=== PATIENT | male | born 1935 | race Caucasian/White ===

== ENCOUNTER → 2016-12-13 | Outpatient (CLI) | payer MEDICARE ==
[~2016-12-13] VITALS: Ht 174 cm; Wt 93.0 kg
[~2016-12-13] MED LIST: /ADVA50050 IN; /WARF5TA OR; ADV500INH INH; ALBU17IN2 INH; ALLO100T PO; CARDIZEM PO; DILT300C46 PO; FISH1000 PO; FISHCAP PO; FLOM5CAP PO; FLON1SPR; FLONASE; INDO50CA PO; LASI40TA PO; LASIX PO; LOVA10TA PO; LOVASTATIN PO; MOVE1TAB PO; MULT1TAB10 PO; MULTIVIT OR; NS 1,000 ML IV ONE; PERC5TAB8 OR; POTA10TA16 PO; PROPOFOL 200 MG/20 ML VIAL As Ordered ONE; SPIRIVA PO; TIOT18INH INH; TORS20TA2 PO; TYLENOL OR; UNIPHYL PO; UROXATRAL PO; VIT D 2000 OR; VITA-112 PO; VITA-130 PO; VITA50TA43 PO; ZANTAC PO; ZANTTAB PO
--- NOTE | 2016-12-13 10:54 | ROOR ---
Patient Name: Tahir Brandon Procedure Date: 12/13/2016 10:29 AM Date of : 1935 Age: 81 Room: [facility] Gender: Male Note Status: Finalized Procedure: Colonoscopy Indications: High risk colon cancer surveillance: Personal history of colonic polyps Providers: Frederick Campos Jr, MD Referring MD: SAMI Mullen PA-C Requesting Provider: Medicines: Propofol per Anesthesia Complications: No immediate complications. Procedure: Pre-Anesthesia Assessment: - Prior to the procedure, a History and Physical was performed, and patient medications and allergies were reviewed. The patient is competent. The risks and benefits of the procedure and the sedation options and risks were discussed with the patient. All questions were answered and informed consent was obtained. Patient identification and proposed procedure were verified by the physician and the nurse in the pre-procedure area and in the procedure room. Mental Status Examination: alert and oriented. Airway Examination: normal oropharyngeal airway and neck mobility. Respiratory Examination: clear to auscultation. CV Examination: normal. ASA Grade Assessment: II - A patient with mild systemic disease. After reviewing the risks and benefits, the patient was deemed in satisfactory condition to undergo the procedure. The anesthesia plan was to use moderate sedation / analgesia (conscious sedation). Immediately prior to administration of medications, the patient was re-assessed for adequacy to receive sedatives. The heart rate, respiratory rate, oxygen saturations, blood pressure, adequacy of pulmonary ventilation, and response to care were monitored throughout the procedure. The physical status of the patient was re-assessed after the procedure. The Colonoscope was introduced through the anus and advanced to the cecum, identified by appendiceal orifice and ileocecal valve. The colonoscopy was performed without difficulty. The patient tolerated the procedure well. The quality of the bowel preparation was adequate and good. Findings: The perianal exam findings include non-thrombosed internal hemorrhoids, internal hemorrhoids that prolapse with straining, but spontaneously regress to the resting position (Grade II) and internal hemorrhoids that prolapse with straining, but require manual replacement into the anal canal (Grade III). A medium polyp was found in the ileocecal valve. The polyp was sessile. The polyp was removed with a jumbo cold forceps. Polyp resection was incomplete. The resected tissue was retrieved. Multiple small and large-mouthed diverticula were found in the sigmoid colon and descending colon. The rectum, recto-sigmoid colon, transverse colon, ascending colon, cecum and appendiceal orifice appeared normal. Impression: - Non-thrombosed internal hemorrhoids, internal hemorrhoids that prolapse with straining, but spontaneously regress to the resting position (Grade II) and internal hemorrhoids that prolapse with straining, but require manual replacement into the anal canal (Grade III) found on perianal exam. - One medium polyp at the ileocecal valve, removed with a jumbo cold forceps. Incomplete resection. Resected tissue retrieved. - Diverticulosis in the sigmoid colon and in the descending colon. - The rectum, recto-sigmoid colon, transverse colon, ascending colon, cecum and appendiceal orifice are normal. Recommendation: - Discharge patient to home (ambulatory). - Repeat colonoscopy in 3 - 5 years for surveillance based on pathology results. Frederick Campos MD Frederick Campos Jr, MD 12/13/2016 10:54:41 AM This report has been signed electronically. Number of Addenda: 0 Note Initiated On: 12/13/2016 10:29 AM Estimated Blood Loss: Estimated blood loss: none.
[2016-12-13 11:15] VITALS: BP 169/78
== END | disposition home or self-care (01) ==
LOC: M OPP 09:13
PROVIDERS: ATTEND Surgery
DX: Z12.11 Encounter for screening for malignant neoplasm of colon (principal); D12.0 Benign neoplasm of cecum; K64.1 Second degree hemorrhoids; K64.2 Third degree hemorrhoids; K57.30 Diverticulosis of large intestine without perforation or abscess without bleeding; Z86.010 Personal history of colon polyps; I12.9 Hypertensive chronic kidney disease with stage 1 through stage 4 chronic kidney disease, or unspecified chronic kidney disease; E78.5 Hyperlipidemia, unspecified; K57.92 Diverticulitis of intestine, part unspecified, without perforation or abscess without bleeding; R12 Heartburn; K21.9 Gastro-esophageal reflux disease without esophagitis; E66.9 Obesity, unspecified; R23.3 Spontaneous ecchymoses; M19.90 Unspecified osteoarthritis, unspecified site; M10.9 Gout, unspecified; N18.9 Chronic kidney disease, unspecified; M54.5 Low back pain; J44.9 Chronic obstructive pulmonary disease, unspecified; G47.30 Sleep apnea, unspecified; R06.83 Snoring; N40.1 Benign prostatic hyperplasia with lower urinary tract symptoms; Z87.891 Personal history of nicotine dependence; Z79.899 Other long term (current) drug therapy

== ENCOUNTER → 2016-12-18 | Outpatient (REF) | payer MEDICARE ==
[~2016-12-18] MED LIST changes: -NS 1,000 ML IV ONE; -PROPOFOL 200 MG/20 ML VIAL As Ordered ONE
[2016-12-18 15:08] LABS: MEAN CORPUSCULAR HEMOGLOBIN 33.8 pg (27.0-33.0); MEAN CORPUSCULAR HGB CONC 34.3 g/dl (32.0-36.5); MEAN CORPUSCULAR VOLUME 98.6 fl (80.0-96.0); RED CELL DISTRIBUTION WIDTH 13.5 % (11.5-14.5); WHITE BLOOD COUNT 5.8 K/mm3 (4.0-10.0)
[2016-12-18 15:45] LABS: ALBUMIN 3.8 GM/DL (3.2-5.2); ALBUMIN/GLOBULIN RATIO 1.46 (1.00-1.93); ALKALINE PHOSPHATASE 81 U/L (45-117); ALT/SGPT 27 U/L (12-78); ANION GAP 8 MEQ/L (8-16); AST/SGOT 25 U/L (15-37); BILIRUBIN,TOTAL 0.7 MG/DL (0.2-1.0); BLOOD UREA NITROGEN 16 MG/DL (7-18); CARBON DIOXIDE LEVEL 29 MEQ/L (21-32); CHLORIDE LEVEL 105 MEQ/L (98-107); CHOLESTEROL LEVEL 146 MG/DL (<200); CREATININE FOR GFR 1.21 MG/DL (0.70-1.30); GLOMERULAR FILTRATION RATE > 60.0 (>35); GLUCOSE, FASTING 91 MG/DL (83-110); POTASSIUM SERUM 3.6 MEQ/L (3.5-5.1); SODIUM LEVEL 142 MEQ/L (136-145); THEOPHYLLINE LEVEL 15.9 UG/ML (10.0-20.0); TOTAL PROTEIN 6.4 GM/DL (6.4-8.2); TRIGLYCERIDES LEVEL 115 MG/DL (<150); URIC ACID 6.7 MG/DL (3.5-7.2)
== END ==
LOC: M SFHCLACO 08:22
PROVIDERS: ATTEND Physician Assistant
DX: J44.9 Chronic obstructive pulmonary disease, unspecified (principal); I10 Essential (primary) hypertension; E78.2 Mixed hyperlipidemia; M10.9 Gout, unspecified; Z51.81 Encounter for therapeutic drug level monitoring; Z79.899 Other long term (current) drug therapy

== ENCOUNTER → 2017-06-18 | Outpatient (REF) | payer MEDICARE ==
[~2017-06-18] MED LIST changes: -VITA-130 PO; +VITA500T PO
[2017-06-18 15:34] LABS: MEAN CORPUSCULAR HEMOGLOBIN 32.7 pg (27.0-33.0); MEAN CORPUSCULAR HGB CONC 33.1 g/dl (32.0-36.5); MEAN CORPUSCULAR VOLUME 98.6 fl (80.0-96.0); PLATELET COUNT, AUTOMATED 199 10^3/uL (150-450); RED CELL DISTRIBUTION WIDTH 13.8 % (11.5-14.5); WHITE BLOOD COUNT 6.2 10^3/uL (4.0-10.0)
[2017-06-18 16:05] LABS: ALBUMIN 3.8 GM/DL (3.2-5.2); ALBUMIN/GLOBULIN RATIO 1.31 (1.00-1.93); BILIRUBIN,TOTAL 0.9 MG/DL (0.2-1.0); CALCIUM LEVEL 9.2 MG/DL (8.8-10.2); CREATININE FOR GFR 1.25 MG/DL (0.70-1.30); GLOMERULAR FILTRATION RATE 58.9 (>35); POTASSIUM SERUM 3.7 MEQ/L (3.5-5.1); THEOPHYLLINE LEVEL 18.7 UG/ML (10.0-20.0); TOTAL PROTEIN 6.7 GM/DL (6.4-8.2)
== END ==
LOC: M SFHCLACO 08:28
PROVIDERS: ATTEND Physician Assistant
DX: J44.9 Chronic obstructive pulmonary disease, unspecified (principal); I10 Essential (primary) hypertension; E78.2 Mixed hyperlipidemia; Z12.5 Encounter for screening for malignant neoplasm of prostate; M10.9 Gout, unspecified; Z51.81 Encounter for therapeutic drug level monitoring; Z79.899 Other long term (current) drug therapy
CPT/HCPCS: 80053; 80061; 80198; 84550; 85027; G0103

== ENCOUNTER → 2017-12-13 | Outpatient (CLI) | payer MEDICARE | LOC: M SMT 12:09 | DX: J44.9 Chronic obstructive pulmonary disease, unspecified (principal) | CPT/HCPCS: 71046 ==

== ENCOUNTER → 2017-12-17 | Outpatient (REF) | payer MEDICARE ==
[2017-12-17 14:52] LABS: HEMATOCRIT 43.4 % (42.0-52.0); HEMOGLOBIN 14.1 g/dl (13.5-17.5); MEAN CORPUSCULAR HEMOGLOBIN 32.5 pg (27.0-33.0); MEAN CORPUSCULAR HGB CONC 32.5 g/dl (32.0-36.5); PLATELET COUNT, AUTOMATED 195 10^3/uL (150-450); RED BLOOD COUNT 4.34 10^6/uL (4.30-6.10); RED CELL DISTRIBUTION WIDTH 14.1 % (11.5-14.5); WHITE BLOOD COUNT 6.7 10^3/uL (4.0-10.0)
[2017-12-17 15:33] LABS: ALBUMIN 3.8 GM/DL (3.2-5.2); ALBUMIN/GLOBULIN RATIO 1.27 (1.00-1.93); ALKALINE PHOSPHATASE 92 U/L (45-117); ALT/SGPT 21 U/L (12-78); ANION GAP 8 MEQ/L (8-16); AST/SGOT 19 U/L (7-37); BILIRUBIN,TOTAL 0.6 MG/DL (0.2-1.0); BLOOD UREA NITROGEN 24 MG/DL (7-18); CALCIUM LEVEL 9.1 MG/DL (8.8-10.2); CARBON DIOXIDE LEVEL 32 MEQ/L (21-32); CHLORIDE LEVEL 105 MEQ/L (98-107); CHOLESTEROL LEVEL 139 MG/DL (<200); CHOLESTEROL RISK RATIO 2.957 (<5); CREATININE FOR GFR 1.29 MG/DL (0.70-1.30); GLOMERULAR FILTRATION RATE 56.6 (>35); GLUCOSE, FASTING 81 MG/DL (70-100); HDL CHOLESTEROL 47 MG/DL (>40); NON-HDL-C 92 MG/DL; POTASSIUM SERUM 3.9 MEQ/L (3.5-5.1); PSA SCREENING 0.78 NG/ML (< 4.0); SODIUM LEVEL 145 MEQ/L (136-145); THEOPHYLLINE LEVEL < 2.0 UG/ML (10.0-20.0); TOTAL PROTEIN 6.8 GM/DL (6.4-8.2); TRIGLYCERIDES LEVEL 105 MG/DL (<150)
== END ==
LOC: M SFHCLACO 08:17
DX: J44.9 Chronic obstructive pulmonary disease, unspecified (principal); E78.2 Mixed hyperlipidemia; I10 Essential (primary) hypertension; Z12.5 Encounter for screening for malignant neoplasm of prostate
CPT/HCPCS: 80198

== ENCOUNTER → 2018-06-19 | Outpatient (REF) | payer MEDICARE ==
[2018-06-19 14:11] LABS: BASO % 0.3 % (0.0-1.0); EOS # 0.1 10^3/uL (0.0-0.50); EOS % 0.7 % (0.0-3.0); HEMATOCRIT 44.2 % (42.0-52.0); HEMOGLOBIN 14.6 g/dl (13.5-17.5); IMMATURE GRANULOCYTE % 0.4 % (0-3.0); LYMPH # 2.4 10^3/uL (1.5-4.5); LYMPH % 21.5 % (24.0-44.0); MEAN CORPUSCULAR HEMOGLOBIN 33.1 pg (27.0-33.0); MEAN CORPUSCULAR VOLUME 100.2 fl (80.0-96.0); MONO # 1.1 10^3/uL (0.0-0.8); MONO % 9.8 % (0.0-5.0); NEUTROPHILS # 7.4 10^3/uL (1.8-7.7); NEUTROPHILS % 67.3 % (36.0-66.0); PLATELET COUNT, AUTOMATED 211 10^3/uL (150-450); RED BLOOD COUNT 4.41 10^6/uL (4.30-6.10); RED CELL DISTRIBUTION WIDTH 13.4 % (11.5-14.5); WHITE BLOOD COUNT 10.9 10^3/uL (4.0-10.0)
[2018-06-19 14:39] LABS: ALBUMIN 4.1 GM/DL (3.2-5.2); ALBUMIN/GLOBULIN RATIO 1.37 (1.00-1.93); ALKALINE PHOSPHATASE 91 U/L (45-117); ALT/SGPT 22 U/L (12-78); ANION GAP 8 MEQ/L (8-16); AST/SGOT 27 U/L (7-37); BILIRUBIN,TOTAL 0.9 MG/DL (0.2-1.0); BLOOD UREA NITROGEN 20 MG/DL (7-18); CALCIUM LEVEL 9.3 MG/DL (8.8-10.2); CARBON DIOXIDE LEVEL 30 MEQ/L (21-32); CHLORIDE LEVEL 104 MEQ/L (98-107); CHOLESTEROL LEVEL 155 MG/DL (<200); CHOLESTEROL RISK RATIO 3.163 (<5); CREATININE FOR GFR 1.22 MG/DL (0.70-1.30); GLOMERULAR FILTRATION RATE > 60.0 (>35); GLUCOSE, FASTING 80 MG/DL (70-100); HDL CHOLESTEROL 49 MG/DL (>40); LDL CHOLESTEROL 81 MG/DL (<100); NON-HDL-C 106 MG/DL; POTASSIUM SERUM 4.3 MEQ/L (3.5-5.1); SODIUM LEVEL 142 MEQ/L (136-145); TOTAL PROTEIN 7.1 GM/DL (6.4-8.2); TRIGLYCERIDES LEVEL 126 MG/DL (<150)
== END ==
LOC: M SFHCADAM 12:15
DX: H65.23 Chronic serous otitis media, bilateral (principal); G47.33 Obstructive sleep apnea (adult) (pediatric); I12.9 Hypertensive chronic kidney disease with stage 1 through stage 4 chronic kidney disease, or unspecified chronic kidney disease; E78.2 Mixed hyperlipidemia; N18.3 Chronic kidney disease, stage 3 (moderate)
CPT/HCPCS: 84443

== ENCOUNTER → 2018-10-13 | Outpatient (REF) | payer MEDICARE ==
[~2018-10-13] MED LIST changes: +FLOM0.4C39 PO; -FLOM5CAP PO; -LASI40TA PO; +LASI40TA9 PO
== END ==
LOC: M SFHCPLAZ 15:46
PROVIDERS: ATTEND Dermatology
DX: C44.219 Basal cell carcinoma of skin of left ear and external auricular canal (principal); L82.1 Other seborrheic keratosis; L57.8 Other skin changes due to chronic exposure to nonionizing radiation

== ENCOUNTER → 2018-12-02 | Outpatient (REF) | payer MEDICARE ==
[~2018-12-02] MED LIST changes: -/ADVA50050 IN; -/WARF5TA OR; +ADVA1AER2 IN; +COUM1TAB17 OR; +DILT1CAP7 PO; -DILT300C46 PO; -INDO50CA PO; +INDO50CA11 PO
== END ==
LOC: M SFHCPLAZ 09:55
PROVIDERS: ATTEND Dermatology
DX: L57.0 Actinic keratosis (principal); L57.8 Other skin changes due to chronic exposure to nonionizing radiation

== ENCOUNTER → 2018-12-24 | Outpatient (REF) | payer MEDICARE ==
[2018-12-24 12:25] LABS: BASO % 0.3 % (0.0-1.0); EOS # 0.1 10^3/uL (0.0-0.50); EOS % 1.4 % (0.0-3.0); HEMATOCRIT 43.4 % (42.0-52.0); HEMOGLOBIN 14.1 g/dl (13.5-17.5); LYMPH # 2.1 10^3/uL (1.5-4.5); LYMPH % 33.1 % (24.0-44.0); MEAN CORPUSCULAR HEMOGLOBIN 33.5 pg (27.0-33.0); MEAN CORPUSCULAR HGB CONC 32.5 g/dl (32.0-36.5); MEAN CORPUSCULAR VOLUME 103.1 fl (80.0-96.0); MONO # 0.8 10^3/uL (0.0-0.8); MONO % 12.5 % (0.0-5.0); NEUTROPHILS # 3.3 10^3/uL (1.8-7.7); NEUTROPHILS % 52.5 % (36.0-66.0); PLATELET COUNT, AUTOMATED 173 10^3/uL (150-450); RED BLOOD COUNT 4.21 10^6/uL (4.30-6.10); WHITE BLOOD COUNT 6.2 10^3/uL (4.0-10.0)
[2018-12-24 12:32] LABS: ALBUMIN 3.8 GM/DL (3.2-5.2); BILIRUBIN,TOTAL 1.1 MG/DL (0.2-1.0); CALCIUM LEVEL 9.2 MG/DL (8.8-10.2); CHOLESTEROL RISK RATIO 2.803 (<5); CREATININE FOR GFR 1.3 MG/DL (0.70-1.30); POTASSIUM SERUM 4.1 MEQ/L (3.5-5.1); TOTAL PROTEIN 6.9 GM/DL (6.4-8.2)
== END ==
LOC: M SFHCADAM 09:10
PROVIDERS: ATTEND Physician Assistant Medical
DX: E78.2 Mixed hyperlipidemia (principal); K21.9 Gastro-esophageal reflux disease without esophagitis; N18.3 Chronic kidney disease, stage 3 (moderate); I50.32 Chronic diastolic (congestive) heart failure

== ENCOUNTER → 2019-04-17 | Outpatient (REF) | payer MEDICARE ==
[~2019-04-17] MED LIST changes: -INDO50CA11 PO; +INDO50CA91 PO; +ZANT150T40 PO; -ZANTTAB PO
== END ==
LOC: M SFHCPLAZ 10:18
PROVIDERS: ATTEND Dermatology
DX: L57.0 Actinic keratosis (principal)

== ENCOUNTER → 2019-06-26 | Outpatient (REF) | payer MEDICARE ==
[2019-06-26 13:54] LABS: BASO % 0.4 % (0.0-1.0); EOS # 0.1 10^3/uL (0.0-0.5); EOS % 1.6 % (0.0-3.0); HEMATOCRIT 45.5 % (42.0-52.0); HEMOGLOBIN 14.2 g/dl (13.5-17.5); LYMPH # 1.5 10^3/uL (1.5-5.0); LYMPH % 30.7 % (24.0-44.0); MEAN CORPUSCULAR HEMOGLOBIN 32.8 pg (27.0-33.0); MEAN CORPUSCULAR HGB CONC 31.2 g/dl (32.0-36.5); MEAN CORPUSCULAR VOLUME 105.1 fl (80.0-96.0); MONO # 1.1 10^3/uL (0.0-0.8); MONO % 21.3 % (0.0-5.0); NEUTROPHILS # 2.3 10^3/uL (1.5-8.5); NEUTROPHILS % 45.8 % (36.0-66.0); PLATELET COUNT, AUTOMATED 157 10^3/uL (150-450); RED BLOOD COUNT 4.33 10^6/uL (4.30-6.10); WHITE BLOOD COUNT 4.9 10^3/uL (4.0-10.0)
[2019-06-26 14:23] LABS: BILIRUBIN,TOTAL 0.8 MG/DL (0.2-1.0); CALCIUM LEVEL 8.6 MG/DL (8.8-10.2); CREATININE FOR GFR 1.42 MG/DL (0.70-1.30); GLOMERULAR FILTRATION RATE 50.6 (>35); POTASSIUM SERUM 3.7 MEQ/L (3.5-5.1)
[2019-06-26 14:24] LABS: ALBUMIN 3.8 GM/DL (3.2-5.2); CHOLESTEROL RISK RATIO 2.791 (<5); THYROID STIMULATING HORMONE 1.37 uIU/ML (0.358-3.740); TOTAL PROTEIN 6.7 GM/DL (6.4-8.2)
== END ==
LOC: M SFHCADAM 09:30
PROVIDERS: ATTEND Physician Assistant Medical
DX: I11.0 Hypertensive heart disease with heart failure (principal); E78.2 Mixed hyperlipidemia; N18.3 Chronic kidney disease, stage 3 (moderate); I50.32 Chronic diastolic (congestive) heart failure; M1A.3710 Chronic gout due to renal impairment, right ankle and foot, without tophus (tophi)

== ENCOUNTER → 2019-07-09 | Outpatient (CLI) | payer MEDICARE ==
--- NOTE | 2019-07-09 13:56 | REP ---
Clinical: Stage III chronic renal disease. Technique: Real time perez scale ultrasound examination using curved array transducer. Findings: The kidneys are normal in reniform shape and demonstrate cortical thinning and increased central sinus fat. Intrarenal vascular calcifications noted. No hydronephrosis, nephrolithiasis, cystic or renal mass lesion. Right kidney measures 10.2 x 5.7 x 5.8 cm. Left kidney measures 10.6 x 4.6 x 5.6 cm. Bladder is unremarkable and bilateral ureteral jets are identified. Impression: Findings consistent with chronic medical renal disease including renovascular calcifications. No hydronephrosis. Electronically Signed by Juan Woody MD 07/09/2019 01:48 P
== END ==
LOC: M RAD 13:09
PROVIDERS: ATTEND Physician Assistant Medical
DX: N18.3 Chronic kidney disease, stage 3 (moderate) (principal)

== ENCOUNTER → 2019-12-22 | Outpatient (REF) | payer MEDICARE ==
[~2019-12-22] MED LIST changes: +VITA-243 PO; -VITA500T PO
[2019-12-22 13:26] LABS: BASO % 0.5 % (0.0-1.0); EOS # 0.1 10^3/uL (0.0-0.5); EOS % 1.1 % (0.0-3.0); HEMOGLOBIN 14.2 g/dl (13.5-17.5); LYMPH # 2.1 10^3/uL (1.5-5.0); LYMPH % 31.3 % (24.0-44.0); MEAN CORPUSCULAR HEMOGLOBIN 32.1 pg (27.0-33.0); MEAN CORPUSCULAR HGB CONC 31.6 g/dl (32.0-36.5); MEAN CORPUSCULAR VOLUME 101.6 fl (80.0-96.0); MONO # 0.8 10^3/uL (0.0-0.8); MONO % 11.7 % (0.0-5.0); NEUTROPHILS # 3.6 10^3/uL (1.5-8.5); NEUTROPHILS % 54.9 % (36.0-66.0); PLATELET COUNT, AUTOMATED 178 10^3/uL (150-450); RED BLOOD COUNT 4.43 10^6/uL (4.30-6.10); WHITE BLOOD COUNT 6.6 10^3/uL (4.0-10.0)
[2019-12-22 13:34] LABS: ALBUMIN 3.9 GM/DL (3.2-5.2); ALT/SGPT 23 U/L (12-78); BILIRUBIN,TOTAL 1.1 MG/DL (0.2-1.0); BLOOD UREA NITROGEN 21 MG/DL (7-18); CALCIUM LEVEL 9.4 MG/DL (8.8-10.2); CARBON DIOXIDE LEVEL 32 MEQ/L (21-32); CHLORIDE LEVEL 108 MEQ/L (98-107); CHOLESTEROL LEVEL 140 MG/DL (<200); CHOLESTEROL RISK RATIO 2.745 (<5); CREATININE FOR GFR 1.07 MG/DL (0.70-1.30); GLOMERULAR FILTRATION RATE > 60.0 (>35); GLUCOSE, FASTING 84 MG/DL (70-100); HDL CHOLESTEROL 51 MG/DL (>40); LDL CHOLESTEROL 67 MG/DL (<100); MAGNESIUM LEVEL 2.6 MG/DL (1.8-2.4); NON-HDL-C 89 MG/DL; POTASSIUM SERUM 4.3 MEQ/L (3.5-5.1); SODIUM LEVEL 143 MEQ/L (136-145); TOTAL PROTEIN 6.9 GM/DL (6.4-8.2); TRIGLYCERIDES LEVEL 111 MG/DL (<150)
== END ==
LOC: M SFHCADAM 08:26
PROVIDERS: ATTEND Physician Assistant Medical
DX: I12.9 Hypertensive chronic kidney disease with stage 1 through stage 4 chronic kidney disease, or unspecified chronic kidney disease (principal); E78.2 Mixed hyperlipidemia; N18.3 Chronic kidney disease, stage 3 (moderate)

== ENCOUNTER → 2019-12-29 | Outpatient (REF) | payer MEDICARE | LOC: M SFHCADAM 15:13 | PROVIDERS: ATTEND Physician Assistant Medical | DX: E83.41 Hypermagnesemia (principal) ==

== ENCOUNTER → 2020-04-29 | Outpatient (REF) | payer MEDICARE ==
[2020-04-29 17:51] LABS: ALBUMIN 3.8 GM/DL (3.2-5.2); BLOOD UREA NITROGEN 18 MG/DL (7-18); CALCIUM LEVEL 9.5 MG/DL (8.8-10.2); CARBON DIOXIDE LEVEL 31 MEQ/L (21-32); CHLORIDE LEVEL 105 MEQ/L (98-107); CREATININE FOR GFR 1.17 MG/DL (0.70-1.30); GLOMERULAR FILTRATION RATE > 60.0 (>35); GLUCOSE, FASTING 83 MG/DL (70-100); NT-PRO BNP 353 PG/ML (<450); SODIUM LEVEL 142 MEQ/L (136-145)
== END ==
LOC: M SFHCADAM 14:00
PROVIDERS: ATTEND Physician Assistant Medical
DX: I50.33 Acute on chronic diastolic (congestive) heart failure (principal)

== ENCOUNTER → 2020-05-02 | Outpatient (REF) | payer MEDICARE ==
[2020-05-02 17:49] LABS: ALBUMIN 4.1 GM/DL (3.2-5.2); CALCIUM LEVEL 9.8 MG/DL (8.8-10.2); CREATININE FOR GFR 1.68 MG/DL (0.70-1.30); GLOMERULAR FILTRATION RATE 41.5 (>35); PHOSPHORUS LEVEL 3.5 MG/DL (2.5-4.9); POTASSIUM SERUM 3.7 MEQ/L (3.5-5.1)
== END ==
LOC: M SFHCADAM 12:14
PROVIDERS: ATTEND Physician Assistant Medical
DX: I50.33 Acute on chronic diastolic (congestive) heart failure (principal)

== ENCOUNTER → 2020-05-06 | Outpatient (REF) | payer MEDICARE ==
[2020-05-06 13:38] LABS: ALBUMIN 3.9 GM/DL (3.2-5.2); CALCIUM LEVEL 9.6 MG/DL (8.8-10.2); CREATININE FOR GFR 1.57 MG/DL (0.70-1.30); GLOMERULAR FILTRATION RATE 44.9 (>35); PHOSPHORUS LEVEL 2.9 MG/DL (2.5-4.9); POTASSIUM SERUM 3.7 MEQ/L (3.5-5.1)
== END ==
LOC: M SFHCADAM 10:08
PROVIDERS: ATTEND Physician Assistant Medical
DX: N18.30 Chronic kidney disease, stage 3 unspecified (principal)

== ENCOUNTER → 2020-05-13 | Outpatient (REF) | payer MEDICARE ==
[2020-05-13 17:39] LABS: ALBUMIN 3.8 GM/DL (3.2-5.2); CALCIUM LEVEL 9.3 MG/DL (8.8-10.2); CREATININE FOR GFR 1.47 MG/DL (0.70-1.30); GLOMERULAR FILTRATION RATE 48.5 (>35); PHOSPHORUS LEVEL 2.3 MG/DL (2.5-4.9); POTASSIUM SERUM 4.2 MEQ/L (3.5-5.1)
== END ==
LOC: M SFHCADAM 11:56
PROVIDERS: ATTEND Physician Assistant Medical
DX: I50.32 Chronic diastolic (congestive) heart failure (principal)

== ENCOUNTER → 2020-06-15 | Outpatient (REF) | payer MEDICARE ==
[2020-06-15 14:12] LABS: ALBUMIN 3.8 GM/DL (3.2-5.2); BILIRUBIN,TOTAL 0.7 MG/DL (0.2-1.0); CALCIUM LEVEL 9.7 MG/DL (8.8-10.2); CHOLESTEROL RISK RATIO 2.862 (<5); CREATININE FOR GFR 1.25 MG/DL (0.70-1.30); GLOMERULAR FILTRATION RATE 58.4 (>35); MAGNESIUM LEVEL 2.4 MG/DL (1.8-2.4); THYROID STIMULATING HORMONE 2.14 uIU/ML (0.358-3.740); TOTAL PROTEIN 7.2 GM/DL (6.4-8.2); URIC ACID 6.5 MG/DL (3.5-7.2)
== END ==
LOC: M SFHCADAM 08:53
PROVIDERS: ATTEND Physician Assistant Medical
DX: N18.30 Chronic kidney disease, stage 3 unspecified (principal); I50.32 Chronic diastolic (congestive) heart failure; M1A.3710 Chronic gout due to renal impairment, right ankle and foot, without tophus (tophi); E83.41 Hypermagnesemia

== ENCOUNTER → 2020-10-06 | Outpatient (REF) | payer MEDICARE ==
[2020-10-06 16:53] LABS: HEMATOCRIT 42.2 % (42.0-52.0); HEMOGLOBIN 13.5 g/dl (13.5-17.5); MEAN CORPUSCULAR HEMOGLOBIN 32.5 pg (27.0-33.0); MEAN CORPUSCULAR VOLUME 101.4 fl (80.0-96.0); PLATELET COUNT, AUTOMATED 211 10^3/uL (150-450); RED BLOOD COUNT 4.16 10^6/uL (4.30-6.10); WHITE BLOOD COUNT 8.5 10^3/uL (4.0-10.0)
[2020-10-06 17:23] LABS: ALBUMIN 3.7 GM/DL (3.2-5.2); ALT/SGPT 20 U/L (12-78); BILIRUBIN,TOTAL 0.5 MG/DL (0.2-1.0); BLOOD UREA NITROGEN 22 MG/DL (7-18); CALCIUM LEVEL 9.2 MG/DL (8.8-10.2); CARBON DIOXIDE LEVEL 30 MEQ/L (21-32); CHLORIDE LEVEL 106 MEQ/L (98-107); CREATININE FOR GFR 1.14 MG/DL (0.70-1.30); GLOMERULAR FILTRATION RATE > 60.0 (>35); GLUCOSE, FASTING 78 MG/DL (70-100); POTASSIUM SERUM 3.9 MEQ/L (3.5-5.1); SODIUM LEVEL 142 MEQ/L (136-145); TOTAL PROTEIN 6.5 GM/DL (6.4-8.2)
== END ==
LOC: M SFHCADAM 14:19
PROVIDERS: ATTEND Physician Assistant Medical
DX: I50.32 Chronic diastolic (congestive) heart failure (principal); R53.82 Chronic fatigue, unspecified; K59.01 Slow transit constipation

== ENCOUNTER → 2021-01-19 | Outpatient (REF) | payer MEDICARE ==
[2021-01-19 13:19] LABS: BASO % 0.3 % (0.0-1.0); EOS # 0.1 10^3/uL (0.0-0.5); EOS % 1.5 % (0.0-3.0); HEMATOCRIT 45.6 % (42.0-52.0); HEMOGLOBIN 14.7 g/dl (13.5-17.5); LYMPH # 2.5 10^3/uL (1.5-5.0); MEAN CORPUSCULAR HEMOGLOBIN 32.5 pg (27.0-33.0); MEAN CORPUSCULAR HGB CONC 32.2 g/dl (32.0-36.5); MEAN CORPUSCULAR VOLUME 100.7 fl (80.0-96.0); MONO # 0.8 10^3/uL (0.0-0.8); MONO % 11.7 % (2.0-8.0); NEUTROPHILS # 3.5 10^3/uL (1.5-8.5); NEUTROPHILS % 50.4 % (36.0-66.0); PLATELET COUNT, AUTOMATED 185 10^3/uL (150-450); RED BLOOD COUNT 4.53 10^6/uL (4.30-6.10); WHITE BLOOD COUNT 6.9 10^3/uL (4.0-10.0)
[2021-01-19 14:01] LABS: ALBUMIN 3.7 GM/DL (3.2-5.2); ALT/SGPT 26 U/L (12-78); BLOOD UREA NITROGEN 22 MG/DL (7-18); CALCIUM LEVEL 8.7 MG/DL (8.8-10.2); CARBON DIOXIDE LEVEL 32 MEQ/L (21-32); CHLORIDE LEVEL 106 MEQ/L (98-107); CHOLESTEROL LEVEL 128 MG/DL (<200); CHOLESTEROL RISK RATIO 2.782 (<5); CREATININE FOR GFR 1.06 MG/DL (0.70-1.30); GLOMERULAR FILTRATION RATE > 60.0 (>35); GLUCOSE, FASTING 82 MG/DL (70-100); HDL CHOLESTEROL 46 MG/DL (>40); LDL CHOLESTEROL 62 MG/DL (<100); NON-HDL-C 82 MG/DL; SODIUM LEVEL 141 MEQ/L (136-145); TOTAL 25(OH) VITAMIN D 36.4 NG/ML (30.0-100.0); TOTAL PROTEIN 6.5 GM/DL (6.4-8.2); TRIGLYCERIDES LEVEL 101 MG/DL (<150)
[2021-01-19 14:02] LABS: HEMOGLOBIN A1c 5.3 %
== END ==
LOC: M SFHCADAM 08:03
PROVIDERS: ATTEND Physician Assistant Medical
DX: I10 Essential (primary) hypertension (principal); R60.9 Edema, unspecified; E78.2 Mixed hyperlipidemia; J44.9 Chronic obstructive pulmonary disease, unspecified; K21.9 Gastro-esophageal reflux disease without esophagitis; G47.33 Obstructive sleep apnea (adult) (pediatric)

== ENCOUNTER → 2021-03-08 | Outpatient (CLI) | payer MEDICARE ==
[~2021-03-08] MED LIST changes: +ALBU8.5H; +AZEL1SPR3; +RANI15TA PO; +VITMTA PO
== END ==
LOC: M LABSMTC 11:07
PROVIDERS: ATTEND Anesthesiology
DX: Z01.818 Encounter for other preprocedural examination (principal); Z11.52 Encounter for screening for COVID-19

== ENCOUNTER 2021-03-13 08:41 | Day surgery (SDC) | payer MEDICARE ==
[~2021-03-13] VITALS: Ht 175.3 cm; Wt 87.1 kg
[~2021-03-13 08:41] MED LIST changes: +NS 1,000 ML IV ONE; +POTA-149 PO; -POTA10TA16 PO
[2021-03-13] MEDS ORDERED: propofoL 200 MG/20 ML VIAL As Ordered ONE (09:19)
[2021-03-13] MEDS ORDERED: LIDOCAINE 2% 100MG/5ML SDV (FOR ANES.) As Ordered ONE (09:19)
[2021-03-13 10:35] VITALS: BP 158/67
== END 2021-03-13 10:51 | disposition home or self-care (01) ==
LOC: M OPP 08:41
PROVIDERS: ATTEND Surgery
DX: Z12.11 Encounter for screening for malignant neoplasm of colon (principal); Z86.010 Personal history of colon polyps; K57.30 Diverticulosis of large intestine without perforation or abscess without bleeding; Z79.82 Long term (current) use of aspirin; Z79.899 Other long term (current) drug therapy; Z87.891 Personal history of nicotine dependence

== ENCOUNTER 2021-05-24 17:11 | Emergency (ER) | payer MEDICARE ==
[~2021-05-24 17:11] MED LIST changes: -NS 1,000 ML IV ONE; -POTA-149 PO; +POTA10TA16 PO
--- OUTSIDE RECORDS SUMMARY | 2021-05-24 17:20 | CCD | Continuity of Care Document ---
Author Author Tahir PATEL Organization Unknown Address [address] [place] [address] Phone [phone] Care Team Providers Care Boat Finisher Name Role Phone VillegasEbony R.P.A. AUTM [phone] Problems Active Problems Provider Date Essential hypertension LIOR Hutchins Onset: 11/01/2016 History of polyp of colon LIOR Hutchins Onset: 017 Dyspnea Bel Goncalves, A.N.P. Onset: 2014 Ex-smoker Bel Goncalves, A.N.P. Onset: 2011 Obstructive sleep apnea syndrome Bel Goncalves, A.N.P. Onset: 11/01/2010 Chronic obstructive lung disease SAMI Rich Onset: 12/13/2017 Panacinar emphysema SAMI Rich Onset: 08/25/2020 Social History Type Date Description Comments Sex Unknown ETOH Use Consumes 2 beers per day Recreational Drug Use Denies Drug Use Tobacco Use Start: 07/15/46 End: 07/15/90 Patient is a forme r smoker 1 ppd x 40+ yrs quit 1990 Smoking Status Reviewed: 08/25/20 Patient is a former smoker 1 ppd x 40+ yrs quit 1990 Allergies, Adverse Reactions, Alerts Description No Known Drug Allergies Medications Active Medications SIG Qnty Indications Ordering Provide r Date Advair Diskus 500-50mcg/Dose Aeros ol 1 puff twice a day Unknown CBD Cannabid Oil as needed Unknown Aspirin [address] 1 tab by mouth every day Unknown Azelastine HCL (Nasal) 0.1% Soluti on 1-2 sprays each nostril every 12 hours as needed Unk nown CPAP 6CM with oxygen bled in - [place] Unknown Calcium 500/D [id number] Chewt abs 1 tab by mouth twice a day Unknown 000 Ventolin HFA 108(90Base) mcg/Act A erosol 2 puffs qid/prn Unknown Torsemide 20mg Tablets 2 tabs by mouth twice a day 60tabs Unknown Cardizem CD 300mg Caps ER 24HR 1 cap by mouth every day Unknown Fish Oil 1000mg Capsules 1 cap by mouth every day Unknown Vitamin C 1000mg Tablets 1 tab by mouth every day Unknown Flomax 0.4mg Capsules 1 tab by mouth every day 30caps Unknown Klor-Con M10 10Meq Tablets ER 2 tabs by mouth twice a day Unknown Allopurinol 100mg Tablets 1 tab by mouth every day Unknown Vitamin B6 50mg Tablets 1 tab by mouth every day Unknown Oxygen 2l hs [place] Unknown Lovastatin 10mg Tablets 1 tab by mouth every day Unknown Move Free [facility] Advanced T ablets 1 tab by mouth every day Unknown 0 Acetaminophen 500mg Tablets 2 tabs by mouth twice a day Unknown Spiriva Handihaler 18mcg Capsules 1 cap inhalation every in the morning Unknown Immunizations CPT Code Status Date Vaccine Lot # [id number] Given 05/18/2020 Afluria, Quadrivalent, 0.5ml , [facility]# [id number] Given 01/06/2018 Prevnar 13 [id number] Given 05/05/2014 Influenza Virus Split 3 Yrs And Above For Intramuscular Use Q2036 Given 05/01/2011 Influenza Vaccine 3 Years Of Age Or Older (Flulaval) 21235 Given 05/03/2010 Influenza Virus Split 3 Yrs And Above For Intramuscular Use Vital Signs Date Vital Result Comment 02/23/2021 11:01am BP Systolic 130 mmHg BP Diastolic 60 mmHg Heart Rate 100 /min O2 % BldC Oximetry 92 % Height 68.5 inches 5'8.50" Weight 198.00 lb BMI (Body Mass Index) 29.7 kg/m2 [place] Body Weight 154 lb Weight 89.813 kg BSA (Body Surface Area) 2.05 m2 02/20/2021 11:22am BP Systolic 134 mmHg BP Diastolic 58 mmHg Body Temperature 98.5 F Height 68.5 inches 5'8.50" Weight 197.12 lb BMI (Body Mass Index) 29.5 kg/m2 [place] Body Weight 154 lb Weight 89.416 kg BSA (Body Surface Area) 2.04 m2 Results Test Acquired Date Facility Test Result H/L Range Note [facility] 02/23/2021 [employer] [facility] SEE IMAGE FVC-Pred 3.52 L FVC-Pre 3.13 L FVC-%Pred-Pre 89 L FVC-LLN 2.62 L Fev1-Pred 2.43 L Fev1-Pre 1.99 L Fev1-%Pred-Pre 81 L Fev1-LLN 1.67 L Fev6-Pred 3.24 L Fev6-Pre 3.13 L Fev6-%Pred-Pre 96 L Fev6-LLN 2.37 L Vuz1ejv-Pnfd 70 % Bom1hmq-Kkx 63 % Uep4mej-%Pred-Pre 90 % Lfc6tzn-AEG 61 % Lej5tnc-Rvbn 92 % Fom7ken-Snz 100 % Sup7wee-%Pred-Pre 108 % FEFMax-Pred 6.10 L/E/sec FEFMax-Pre 5.81 L/E/sec FEFMax-%Pred-Pre 95 L/E/sec FEFMax-LLN 3.88 L/E/sec Rni1769-Nbtc 1.54 L/E/sec Jyw3566-Man 1.11 L/E/sec Hsn4156-%Pred-Pre 71 L/E/sec Eok4596-JOJ 0.00 L/E/sec ExpTime-Pre 4.87 sec Yop0xnq2-Dsru 75 % Uth8ngt5-Ckm 63 % Bcq3eov4-%Pred-Pre 84 % Eiq8cii0-EYR 66 % Procedures Date Code Description Status 02/23/2021 96385 Office/Outpatient Established Mo d MDM 30-39 Min Completed 02/23/2021 20629 Spirometry Completed 02/20/2021 75723 Office/Outpatient New Low MDM 30 -44 Minutes Completed Medical Devices Description No Information Available Encounters Type Date Location Provider Dx Diagnosis Office Visit 02/23/2021 11:30a [facility] Pulmonary/Thoracic SAMI Rich J43.1 Panlobular emphysema G47.33 Obstructive sleep apnea (blaire lt) (pediatric) Z87.891 Personal history of nicotine dependence Office Visit 02/20/2021 11:30a [facility] SAMI Guzman Z86.010 Personal history of colonic polyps Assessments Date Code Description Provider 02/23/2021 J43.1 Panlobular emphysema SAMI Alva 02/23/2021 G47.33 Obstructive sleep apnea (adult) (pediatric) SAMI Rich 02/23/2021 Z87.891 Personal history of nicotine dep endence SAMI Rich 02/20/2021 Z86.010 Personal history of colonic poly ps SAMI Salmeron Plan of Treatment Future Appointment(s):* 09/06/2021 11:30 am - SAMI Rich at [facility] Pulmonary/Thoracic * 03/27/2021 1:00 pm - SAMI Salmeron at [facility] * 03/13/2021 10:15 am - Frederick Campos JR, MD at [facility] 02/23/2021 - SAMI Rich* J43.1 Panlobular emphysema * G47.33 Obstructive sleep apnea (adult) (pediatric) * Z87.891 Personal history of nicotine dependence * * New Labs:* [facility], Scheduled: 09/06/21 * Follow up:* Follow up in 6 months with roberto carlos Functional Status Description No Information Available Mental Status Description No Information Available Referrals Description No Information Available
--- OUTSIDE RECORDS SUMMARY | 2021-05-24 17:20 | CCD ---
Author Author [facility] Organization [facility] Address Unknown Phone Unavailable Care Team Providers Care Billiard Player Name Role Phone Nasreen Cuello Unavailable PROBLEMS Type Condition ICD9-CM Code MHN98-ON Code Onset Dates Condition S tatus W/U Status Risk SNOMED Code Notes Problem History of atypical nevus Z87.898 Active confirmed [id number] Problem Dependent edema R60.9 Active confirmed 2484 66102 Problem Senile osteoporosis M81.0 Active confirmed 50930671 Problem Obstructive sleep apnea G47.33 Active confirmed 35435734 Problem Esophageal reflux K21.9 Active confirmed 23 4097939 Problem Seborrheic keratoses L82.1 Active confirmed 692900887 Problem History of nonmelanoma skin cancer Z85.828 Activ e confirmed 362025095 Problem Hypertrophy of prostate with out urinary obstruction and other lower urinary tract symptoms (LUTS) N40.0 Active confirmed 057594068 Problem Mixed hyperlipidemia E78.2 Active confirmed 767687596 Problem Bilateral chronic serous otitis media H65.23 Ac tive confirmed 491340514 Problem Gout M10.9 Active confirmed 68913150 Problem Morbid obesity due to excess calories E66.01 Ac tive confirmed 089603477 Problem Panlobular emphysema J43.1 Active confirmed 1437021 Problem Benign prostatic hyperplasia with lower urinary tract symptoms, symptom details unspecified N40.1 Active confirmed 534931774 Problem Chronic diastolic CHF (congestive heart failure) I 50.32 Active confirmed 718087957 Problem Xerosis cutis L85.3 Active confirmed 372449 00 Problem Intertrigo L30.4 Active confirmed 17685409 Problem Basal cell carcinoma (BCC) of helix of left ear C4 4.219 Active confirmed 455480355 Problem Chronic fatigue R53.82 Active confirmed 8422 9001 Problem Essential hypertension I10 Active confirmed 67260282 Problem Slow transit constipation K59.01 Active confirmed 66160669 Problem COPD (chronic obstructive pulmonary disease) J44.9 Active confirmed 37355121 Problem Allergic rhinitis due to pollen J30.1 Active confi rmed 71497110 Problem 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 Active confirmed 86656468 Problem Chronic gout of foot, unspecified cause, unspeci fied laterality M1A.0790 Active confirmed 34653863 Problem Hypermagnesemia E83.41 Active confirmed 6697 8005 Problem History of basal cell carcinoma Z85.828 Active confirmed 049883830 ALLERGIES No Known Allergies ENCOUNTERS from 1934 to 2021-05-03 Encounter Location Date Provider Diagnosis [facility] Dermatology [address] [place] [address] [place] [address] Apr, Nasreen Cuate Skin cancer screening Z12.83 ; 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 ; History of basal cell carcinoma Z85.828 ; Seborrheic keratoses L82.1 and Actinic keratoses L57.0 IMMUNIZATIONS Vaccine Route Administration Date Status Influenza 18 yrs & older Flublok Unknown Apr 15, 2020 Administered COVID-19 dose #1 given elsewhere Unspecified Unknown Aug 01, 2020 Administered COVID-19 dose #2 given elsewhere Unspecified Unknown Aug 29, 2020 Administered Influenza 18 yrs & older Flublok IM Intramuscular Apr 25, 2018 Administered Influenza (High Dose 65 & up) IM Intramuscular May 08, 2016 A dministered Influenza (High Dose 65 & up) IM Intramuscular May 09, 2017 A dministered Zoster 50mcg/0.5mL Shingrix Unknown Jun 30, 2018 Admi nistered Influenza 6mo & up Fluzone IM Intramuscular Apr 18, 2010 Admi nistered Influenza (High Dose 65 & up) IM Intramuscular May 03, 2015 A dministered Influenza (High Dose 65 & up) IM Intramuscular Apr 21, 2014 A dministered Influenza (High Dose 65 & up) IM Intramuscular Aug 13, 2013 A dministered Influenza (High Dose 65 & up) IM Intramuscular Apr 22, 2013 A dministered Influenza (High Dose 65 & up) IM Intramuscular May 07, 2012 A dministered Influenza (High Dose 65 & up) IM Intramuscular Apr 27, 2011 A dministered Pneumococcal Adult 0.5mL Pneumovax 23 IM Intramuscular May 03 015 Administered TDAP 0.5mL (Boostrix) IM Intramuscular December 04, 2011 Angie garcia SOCIAL HISTORY Sex Assigned At : Social History Observation Description Sex Assigned At Unknown Education: Question Answer Notes Level of Education: Not Finished College Audit Question Answer Notes Total Score: 4 Interpretation: Alcohol Education Language: Question Answer Notes Languages spoken: Malay Latter-Day: Question Answer Notes Latter-Day No caodaism beliefs that would impact health care. Sexual Hx: Question Answer Notes Had sex in the last 12 months (vaginal, oral, or anal)? Yes with Women only Drug and Alcohol Question Answer Notes Total Score: 0 Interpretation: No problems reported BMI Care Goal Follow-Up Question Answer Notes Above Normal BMI Follow-Up Dietary management educatio n, guidance, and counseling REASON FOR REFERRAL No Information VITAL SIGNS Weight 197.4 lbs Apr, Height 68 in Apr, BMI 30.01 kg/m2 Apr, Blood pressure systolic 132 mm Hg Apr, Blood pressure diastolic 74 mm Hg Apr, MEDICATIONS Medication SIG (Take, Route, Frequency, Duration) Notes Start Da te End Date Status May Have - CBD oil Active Torsemide 20 MG 2 tablet orally 2 times a day for 90 days Active Flomax 0.4 MG 1 capsule 30 minutes after t he same meal each day Orally Once a day for 90 days Active Aspir-81 1 daily Active Albuterol Sulfate HFA 108 (90 Base) MCG/ACT 2 puffs In halation every 4 hours as needed for shortness of breath for 90 days Active dilTIAZem HCl ER Coated Beads 300 MG TAKE ONE CAPSULE BY MOUTH EVERY DAY Orally Daily for 90 days Active Fish Oil 1000 MG 1 capsule Orally Once a day for 90 days Active Diltiazem CD 300 MG 1 capsule Orally Once a day for 90 days Active Move Free [facility] Advance - Orally Active Oxygen dx = 496 2 LPM via NC (COPD and noctu rnal hypoxemia) every night for 99 months Active Debrox 6.5 % 5 drops into affected ear Otic every other week Active Calcium 500 500 mg 1 tablet after meals Orally Twice a day for 90 day s Active Acetaminophen 500 MG 2 capsules Orally Twice a day for 90 days Active Vitamin C 1000 MG 1 tablet Orally once daily for 90 days Active Klor-Con M10 10 MEQ TAKE TWO TABLETS BY MOUTH TWICE A DAY WITH FOOD for 90 Active Allopurinol 100 MG 1 tablet Orally Once a day for 90 days Active Vitamin B-6 50 mg 1 tablet Orally daily for 90 days Active Nystatin 452989 UNIT/GM 1 application to affected ar ea Externally Twice a day prn rash if skin moist for 90 day(s) prn Active Spiriva HandiHaler 18 MCG 1 capsule Inhalation Once a day for 90 days Active Lovastatin 10 MG 1 tablet with a meal Orally Once a day for 90 days Active Advair Diskus 500-50 MCG/DOSE INHALE ONE PUFF BY MOUTH TWICE A DAY Inhalation Twice a day for 90 days Active Azelastine HCl 0.1 % 1 puff in each nostril Nasally Twice a day for 90 days Active Nystatin 530212 UNIT/GM 1 application to affected ar ea Externally Twice a day prn rash if skin dry prn Active PROCEDURES No Information RESULTS No Results REASON FOR VISIT 1 YEAR F/U MEDICAL (GENERAL) HISTORY Type Description Date Medical History hypertension Medical History hyperlipidemia Medical History COPD, IFRAH FEV 1 2.39, 96% predicted - PATRICIA Corey Medical History BPH Medical History diverticulosis Medical History adhesive capsulitis Medical History osteoporosis Medical History edema Medical History Esophageal reflux Medical History Chronic mtp joint pain Medical History EKG 02/02/13 - LAD, ? LBBB Medical History THEOPHYLLINE d/c 2017 Medical History 03/01 ECHO - nl LV EF, LV shantal stolic fxn with abn relaxation, est PA syst pressure nl, MV mild insuff, TV, mild insuff - [facility] Medical History 12/30 CT chest emphysema Medical History 10/27 DEXA, L femur -1.1, nl spine, due f or repeat Medical History 12/29 colonoscopy, [place], Gr 2 NBIH, polyp at ileocecal valve, incomplete resections, Path - sessile serated polyp. Surgical History tonsillectomy childhood Surgical History right knee replacement Surgical History umbilical hernia repair 2012 Surgical History Vasectomy 1975 Surgical History PE tubes right ear 2000 Surgical History excision to skin caner to left helix 201 9 Surgical History eye cataract Hospitalization History knee replacement Hospitalization History Hernia Goals Section No Information Health Concerns No Information MEDICAL EQUIPMENT No Information MENTAL STATUS No Information FUNCTIONAL STATUS No Information ASSESSMENTS Encounter Date Diagnosis Assessment Notes Treatment Notes Treatm ent Clinical Notes Apr, Skin cancer screening (ICD-10 - Z12.83) Patient was reminded to avoid unnecessary sun exposure, to wear protective clothing and sun screen when spending time in the sun and to check skin regularly for the development of any new lesions. 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 The patient was extensively counseled regarding the benign nature of the lesion but that skin cancer may arise in this area just as it would anywhere on their skin. For that reason, return to clinic was recommended for any acute changes, itching, burning, or bleeding. The patient was educated that benign lesions are not a covered insurance benefit and treatment would be elective and cosmetic. They expressed understanding. Apr, History of basal cell carcinoma (ICD-10 - Z85.82 8) NER NER Apr, Seborrheic keratoses (ICD-10 - L82.1) Benign Lesion Counseling. The patient was extensively counseled regarding the benign nature of the lesion but that skin cancer may arise in this area just as it would anywhere on their skin. For that reason, return to clinic was recommended for any acute changes, itching, burning, or bleeding. The patient was educated that benign lesions are not a covered insurance benefit and treatment would be elective and cosmetic. They expressed understanding. Apr, Actinic keratoses (ICD-10 - L57.0) Cryotherapy x [ 2] number of sites. [place] protocol was followed in compliance with [facility] standards. Patient was counseled regarding the indication for treatment (precancerous state for actinic keratosis or cosmetic reasons if done for seborrheic keratoses, acrochordons or warts) as well as, the method and expected results to include compromise of the skin barrier, bleeding, scarring/white area, redness at site, lesion recurrence, and pain. Patient was consented to the risks and benefits of the procedure and gave informed consent. Lesion(s) with locations as indicated in the physical examination were treated. Lesion(s) were treated with 2 cycles of liquid nitrogen with a thaw time of at least ten seconds. Therapy was applied in a pulsed fashion to minimize collateral tissue injury. Patient was instructed to use Vaseline ointment to the area(s) until healed. Patient tolerated the procedure well and left in stable condition. Pain before and after the procedure were assessed to not be significantly different than baseline. PLAN OF TREATMENT Treatment Notes Assessment Notes Clinical Notes Skin cancer screening Patient was remind ed to avoid unnecessary sun exposure, to wear protective clothing and sun screen when spending time in the sun and to check skin regularly for the development of any new lesions. Molina angioma Benign Lesion Counsjesus cartagena. The patient was extensively counseled regarding the benign nature of the lesion but that skin cancer may arise in this area just as it would anywhere on their skin. For that reason, return to clinic was recommended for any acute changes, itching, burning, or bleeding. The patient was educated that benign lesions are not a covered insurance benefit and treatment would be elective and cosmetic. They expressed understanding. History of basal cell carcinoma NER NER Seborrheic keratoses Benign Lesion Couns obdulio. The patient was extensively counseled regarding the benign nature of the lesion but that skin cancer may arise in this area just as it would anywhere on their skin. For that reason, return to clinic was recommended for any acute changes, itching, burning, or bleeding. The patient was educated that benign lesions are not a covered insurance benefit and treatment would be elective and cosmetic. They expressed understanding. Actinic keratoses Cryotherapy x [ 2] n umber of sites. [place] protocol was followed in compliance with [facility] standards. Patient was counseled regarding the indication for treatment (precancerous state for actinic keratosis or cosmetic reasons if done for seborrheic keratoses, acrochordons or warts) as well as, the method and expected results to include compromise of the skin barrier, bleeding, scarring/white area, redness at site, lesion recurrence, and pain. Patient was consented to the risks and benefits of the procedure and gave informed consent. Lesion(s) with locations as indicated in the physical examination were treated. Lesion(s) were treated with 2 cycles of liquid nitrogen with a thaw time of at least ten seconds. Therapy was applied in a pulsed fashion to minimize collateral tissue injury. Patient was instructed to use Vaseline ointment to the area(s) until healed. Patient tolerated the procedure well and left in stable condition. Pain before and after the procedure were assessed to not be significantly different than baseline. Next Appt Details 1 Year Reason:FBSE Provider Name:Ebony Villegas, 2021-07-25 01:00:00 PM, [id number], , [place], [address], Provider Name:Nasreen Cuello, 2022-05-07 11:30:00 AM, [address] [place] [address], , [place], [address], Follow Up:1 YearFBSE Insurance Providers Payer Name Payer Address Payer Phone Insured Name Patient Relati onship to Insured Coverage Start Date Coverage End Date MEDICARE BLUE PPO [address] [facility] [place] [id number] [place] BRANDON self
--- OUTSIDE RECORDS SUMMARY | 2021-05-24 17:20 | CCD | Continuity of Care Document ---
Author Author Tahir PATEL Organization Unknown Address [address] [place] [address] Phone [phone] Care Team Providers Care Lining Baster Name Role Phone VillegasEbony R.P.A. AUTM [phone] Problems Active Problems Provider Date Essential hypertension [...] bled in - [place] Unknown Calcium 500/D [id number]-Aoxm Chewt abs 1 tab by mouth twice [...] by mouth every day Unknown Move Free [facility] Advanced T ablets 1 tab by mouth every day Unknown 0 Acetaminophen 500mg Tablets 2 tabs by mouth twice a day Unknown Spiriva Handihaler 18mcg Capsules 1 cap inhalation every in the morning Unknown Immunizations CPT Code Status Date Vaccine Lot # [id number] Given 05/18/2020 Afluria, Quadrivalent, 0.5ml , [facility]# [id number] Given 01/06/2018 Prevnar 13 [id number] Given 05/05/2014 Influenza Virus Split 3 Yrs And Above For Intramuscular Use [id number] Given 05/01/2011 Influenza Vaccine 3 Years Of Age Or Older (Flulaval) 27220 Given 05/03/2010 Influenza Virus Split 3 Yrs And Above For Intramuscular Use Vital Signs Date Vital Result Comment 02/23/2021 11:01am BP Systolic 130 mmHg BP Diastolic 60 mmHg Heart Rate 100 /min O2 % BldC Oximetry 92 % Height 68.5 inches 5'8.50" Weight 198.00 lb BMI (Body Mass Index) 29.7 kg/m2 Ira Body Weight 154 lb Weight 89.813 kg BSA (Body Surface Area) 2.05 m2 02/20/2021 11:22am BP Systolic 134 mmHg BP Diastolic 58 mmHg Body Temperature 98.5 F Height 68.5 inches 5'8.50" Weight 197.12 lb BMI (Body Mass Index) 29.5 kg/m2 Ira Body Weight 154 lb Weight 89.416 kg BSA (Body Surface Area) 2.04 m2 Results Test Acquired Date Facility Test Result H/L Range Note [facility] 02/23/2021 [facility] SEE IMAGE FVC-Pred 3.52 L FVC-Pre 3.13 L FVC-%Pred-Pre 89 L FVC-LLN 2.62 L Fev1-Pred 2.43 L Fev1-Pre 1.99 L Fev1-%Pred-Pre 81 L Fev1-LLN 1.67 L Fev6-Pred 3.24 L Fev6-Pre 3.13 L Fev6-%Pred-Pre 96 L Fev6-LLN 2.37 L Gwh3qpr-Loef 70 % Lwp0xjo-Iwl 63 % Tao2syt-%Pred-Pre 90 % Xre4bis-TCC 61 % Akg4qhd-Lntk 92 % Icr5rnk-Wcx 100 % Qhm2nuu-%Pred-Pre 108 % FEFMax-Pred 6.10 L/E/sec FEFMax-Pre 5.81 L/E/sec FEFMax-%Pred-Pre 95 L/E/sec FEFMax-LLN 3.88 L/E/sec Bdd9040-Jfvj 1.54 L/E/sec Daq0631-Ani 1.11 L/E/sec Kaa8681-%Pred-Pre 71 L/E/sec Txy8213-NKP 0.00 L/E/sec ExpTime-Pre 4.87 sec Sok3fge7-Tpur 75 % Qbl4dmy0-Yzj 63 % Seo2ycv5-%Pred-Pre 84 % Qbo1pzv0-ZHL 66 % Procedures Date Code Description Status 02/20/2021 03614 Office/Outpatient New Low MDM 30 -44 Minutes Completed Medical Devices Description No Information Available Encounters Type Date Location Provider Dx Diagnosis Office Visit 02/20/2021 11:30a [facility] SAMI Guzman Z86.010 Personal history of colonic polyps Assessments Date Code Description Provider 02/23/2021 J43.1 Panlobular emphysema SAMI Alva 02/23/2021 G47.33 Obstructive sleep apnea (adult) (pediatric) SAMI Rich 02/23/2021 Z87.891 Personal history of nicotine dep endence SAMI Rich 02/20/2021 Z86.010 Personal history of colonic poly ps SAMI Salmeron Plan of Treatment Future Appointment(s):* 09/06/2021 11:30 am - SAMI Rich at [facility] * 03/27/2021 1:00 pm - SAMI Salmeron at [facility] * 03/13/2021 10:15 am - Frederick Campos JR, MD at [facility] 02/23/2021 - SAMI Rich* 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
--- OUTSIDE RECORDS SUMMARY | 2021-05-24 17:20 | CCD ---
Author Author [facility] Organization [facility] Address Unknown Phone Unavailable Care Team Providers Care Director Of Speech Pathology Name Role Phone Ebony Villegas Unavailable PROBLEMS Type Condition ICD9-CM Code [id number] Code Onset Dates Condition S tatus W/U Status Risk SNOMED Code Notes Problem Esophageal reflux K21.9 Active confirmed 23 9290794 Problem History of atypical nevus Z87.898 Active confirmed 7712714077079 Problem Dependent edema R60.9 Active confirmed 2484 55936 Problem Obstructive sleep apnea G47.33 Active confirmed 87840876 Problem History of nonmelanoma skin cancer Z85.828 Activ e confirmed 284177165 Problem Benign prostatic hyperplasia with lower urinary tract symptoms, symptom details unspecified N40.1 Active confirmed 724324349 Problem Mixed hyperlipidemia E78.2 Active confirmed 177223488 Problem Allergic rhinitis due to pollen J30.1 Active confi rmed 68955355 Problem Gout M10.9 Active confirmed 68930447 Problem Hypertrophy of prostate with out urinary obstruction and other lower urinary tract symptoms (LUTS) N40.0 Active confirmed 314758355 Problem Panlobular emphysema J43.1 Active confirmed 3951911 Problem Bilateral chronic serous otitis media H65.23 Ac tive confirmed 098369884 Problem Morbid obesity due to excess calories E66.01 Ac tive confirmed 795091937 Problem Chronic diastolic CHF (congestive heart failure) I 50.32 Active confirmed 814154593 Problem Seborrheic keratoses L82.1 Active confirmed 416251617 Problem Intertrigo L30.4 Active confirmed 70662146 Problem Xerosis cutis L85.3 Active confirmed 141555 00 Problem Chronic fatigue R53.82 Active confirmed 8422 9001 Problem COPD (chronic obstructive pulmonary disease) J44.9 Active confirmed 71733915 Problem Slow transit constipation K59.01 Active confirmed 48642322 Problem Senile osteoporosis M81.0 Active confirmed 28354853 Problem Essential hypertension I10 Active confirmed 25311713 Problem Basal cell carcinoma (BCC) of helix of left ear C4 4.219 Active confirmed 417608743 Problem 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 Active confirmed 42381130 Problem Chronic gout of foot, unspecified cause, unspeci fied laterality M1A.0790 Active confirmed 81517907 Problem Hypermagnesemia E83.41 Active confirmed 6697 8005 ALLERGIES No Known Allergies ENCOUNTERS from 1934 to 2021-03-07 Encounter Location Date Provider Diagnosis [facility] [address] [place] [id number] Feb, Ebony Villegas Dependent edema R60.9 IMMUNIZATIONS Vaccine Route Administration Date Status Influenza [...] IM Intramuscular May 09, 2017 A dministered Influenza 6mo & up Fluzone IM Intramuscular [...] IM Intramuscular May 07, 2012 A dministered Zoster 50mcg/0.5mL Shingrix Unknown Jun 30, 2018 Admi nistered Influenza (High Dose 65 & up) IM Intramuscular Apr 27, 2011 A dministered Pneumococcal Adult 0.5mL Pneumovax 23 IM Intramuscular May 03 015 Administered TDAP 0.5mL (Boostrix) IM Intramuscular December 04, 2011 Administe red SOCIAL HISTORY Sex Assigned At : Social History Observation Description Sex Assigned At Unknown Education: Question Answer Notes Level of Education: Not Finished College Audit Question Answer Notes Total Score: 4 Interpretation: Alcohol Education Language: Question Answer Notes Languages spoken: Macanese Confucianist: Question Answer Notes Confucianist No evangelical beliefs that would impact health care. Sexual [...] REASON FOR REFERRAL No Information VITAL SIGNS No information MEDICATIONS Medication SIG (Take, Route, Frequency, Duration) Notes Start Da te End Date Status Vitamin B-6 50 mg 1 tablet Orally daily for 90 days Active Torsemide 20 MG 2 tablet orally 2 times a day for 90 days Active Klor-Con M10 10 MEQ 2 tablet with food Orally Twice a day for 90 day( s) Active Albuterol Sulfate HFA 108 (90 Base) MCG/ACT 2 puffs In halation every 4 hours as needed for shortness of breath for 90 days Active Diltiazem CD 300 MG 1 capsule Orally Once a day for 90 days Active Allopurinol 100 MG 1 tablet Orally Once a day for 90 days Active Move Free [facility] Advance - Orally Active Advair Diskus 500-50 MCG/DOSE INHALE ONE PUFF BY MOUTH TWICE A DAY Inhalation Twice a day for 90 days Active Debrox 6.5 % 5 drops into affected ear Otic every other week Active Azelastine HCl 0.1 % 1 puff in each nostril Nasally Twice a day for 90 days Active Fish Oil 1000 MG 1 capsule Orally Once a day for 90 days Active Nystatin 670385 UNIT/GM 1 application to affected ar ea Externally Twice a day prn rash if skin moist for 90 day(s) prn Active Calcium 500 500 mg 1 tablet after meals Orally Twice a day for 90 day s Active dilTIAZem HCl ER Coated Beads 300 MG TAKE ONE CAPSULE BY MOUTH EVERY DAY Orally Daily for 90 days Active Vitamin C 1000 MG 1 tablet Orally once daily for 90 days Active Aspir-81 1 daily Active Spiriva HandiHaler 18 MCG 1 capsule Inhalation Once a day for 90 days Active Lovastatin 10 MG 1 tablet with a meal Orally Once a day for 90 days Active May Have - CBD oil Active Nystatin 633903 UNIT/GM 1 application to affected ar ea Externally Twice a day prn rash if skin dry prn Active Oxygen dx = 496 2 LPM via NC (COPD and noctu rnal hypoxemia) every night for 99 months Active Acetaminophen 500 MG 2 capsules Orally Twice a day for 90 days Active Flomax 0.4 MG 1 capsule 30 minutes after t he same meal each day Orally Once a day for 90 days Active PROCEDURES No Information RESULTS No Results REASON FOR VISIT refill today MEDICAL (GENERAL) HISTORY Type Description Date Medical History hypertension Medical History hyperlipidemia Medical History COPD, IFRAH FEV 1 2.39, 96% predicted - PANNY - M Corey Medical History BPH Medical History diverticulosis [...] to left helix 201 9 Surgical History L eye cataract Hospitalization History knee replacement Hospitalization History Hernia Goals Section No Information Health Concerns No Information MEDICAL EQUIPMENT No Information MENTAL STATUS No Information FUNCTIONAL STATUS No Information ASSESSMENTS Encounter Date Diagnosis Assessment Notes Treatment Notes Treatm ent Clinical Notes Feb, Dependent edema (ICD-10 - R60.9) PLAN OF TREATMENT Medication Medication Name Sig Start Date Stop Date dilTIAZem HCl ER Coated Beads 300 MG TAKE ONE CAPSULE BY MOUTH EVERY DAY Orally Daily for 90 days Azelastine HCl 0.1 % 1 puff in each nostril Nasally Twice a day for 90 days Diltiazem CD 300 MG 1 capsule Orally Once a day for 90 days Klor-Con M10 10 MEQ 2 tablet with food Orally Twice a day for 90 day(s) Spiriva HandiHaler 18 MCG 1 capsule Inhalation Once a day for 90 days Advair Diskus 500-50 MCG/DOSE INHALE ONE PUFF BY MOUTH TWICE A DAY Inhalation Twice a day for 90 days Albuterol Sulfate HFA 108 (90 Base) MCG/ACT 2 puffs In halation every 4 hours as needed for shortness of breath for 90 days Flomax 0.4 MG 1 capsule 30 minutes after t he same meal each day Orally Once a day for 90 days Lovastatin 10 MG 1 tablet with a meal Orally Once a day for 90 d ays Allopurinol 100 MG 1 tablet Orally Once a day for 90 days Torsemide 20 MG 2 tablet orally 2 times a day for 90 days Next Appt Details Provider Name:Nasreen Cuello, 2021-05-02 01:45:00 PM, [address] [place] [address], , [place], [address], Provider Name:Ebony Villegas, 2021-07-25 01:00:00 PM, [id number] [place] [address], , [place], [address], Insurance Providers Payer Name Payer Address Payer Phone Insured Name Patient Relati onship to Insured Coverage Start Date Coverage End Date MEDICARE BLUE PPO [address] [id number] [place]
--- OUTSIDE RECORDS SUMMARY | 2021-05-24 17:20 | CCD | Continuity of Care Document ---
Author Author Tahir CAMPOS MD Organization Unknown Address [address] [address] Phone [phone] Care Team Providers Care Trauma Therapist Name Role Phone VillegasEbony R.P.A. AUTM [phone] Problems Active Problems Provider Date Essential hypertension [...] SIG Qnty Indications Ordering Provide r Date Suprep Bowel Prep Kit 17.5-3.13-1.6GM/177ML Solution take per doctor's bowel prep instructions. 354ml Z12.1 1 Aram Gonzales M.D. 03/06/2021 Flomax 0.4mg Capsules 1 tab by mouth every day 30caps Unknown CBD Cannabid Oil as needed Unknown [address] 1 tab by mouth every day Unknown Azelastine HCL (Nasal) 0.1% Soluti on 1-2 sprays each nostril every 12 hours as needed Unk nown CPAP 6CM with oxygen bled in - [place] Unknown Calcium 500/D [id number] Chewt abs 1 tab by mouth twice a day Unknown 000 Ventolin HFA 108(90Base) mcg/Act A erosol 2 puffs qid/prn Unknown Torsemide 20mg Tablets 2 tabs by mouth twice a day 60tabs Unknown Cardizem CD 300mg Caps ER 24HR 1 cap by mouth every day Unknown Fish Oil 1000mg Capsules 1 cap by mouth every day Unknown Advair Diskus 500-50mcg/Dose Aeros ol 1 puff twice a day Unknown Klor-Con M10 10Meq Tablets ER 2 tabs by mouth twice a day Unknown Allopurinol 100mg Tablets 1 tab by mouth every day Unknown Vitamin B6 50mg Tablets 1 tab by mouth every day Unknown Oxygen 2l hs [place] Unknown Lovastatin 10mg Tablets 1 tab by mouth every day Unknown Move Free [facility] Advanced T ablets 1 tab by mouth every day Unknown 0 Acetaminophen 500mg Tablets 2 tabs by mouth twice a day Unknown Spiriva Handihaler 18mcg Capsules 1 cap inhalation every in the morning Unknown Vitamin C 1000mg Tablets 1 tab by mouth every day Unknown Immunizations CPT Code Status Date Vaccine Lot # [id number] Given 05/18/2020 Afluria, Quadrivalent, 0.5ml , [facility]# [id number] 89612 Given 01/06/2018 Prevnar 13 [id number] 41704 Given 05/05/2014 Influenza Virus Split 3 Yrs And Above For Intramuscular Use Q2036 Given 05/01/2011 Influenza Vaccine 3 Years Of Age Or Older (Flulaval) 91986 Given 05/03/2010 Influenza Virus Split 3 Yrs And Above For Intramuscular Use Vital Signs Date Vital Result Comment 02/23/2021 11:01am BP Systolic 130 mmHg BP Diastolic 60 mmHg Heart Rate 100 /min O2 % BldC Oximetry 92 % Height 68.5 inches 5'8.50" Weight 198.00 lb BMI (Body Mass Index) 29.7 kg/m2 [place] Body Weight 154 lb Weight 89.813 kg BSA (Body Surface Area) 2.05 m2 02/20/2021 11:22am BP Systolic 134 mmHg BP Diastolic 58 mmHg Body Temperature 98.5 F Height 68.5 inches 5'8.50" Weight 197.12 lb BMI (Body Mass Index) 29.5 kg/m2 [place] Body Weight 154 lb Weight 89.416 kg BSA (Body Surface Area) 2.04 m2 Results Test Acquired Date Facility Test Result H/L Range Note Laboratory test finding 03/13/2021 [facility] Main Lab [address] [place] [address] [phone] Pathology Request For Service (SEE NOTE) 1 FVL/Luis 02/23/2021 Quantitative Medicine PDFReport SEE IMAGE FVC-Pred 3.52 L FVC-Pre 3.13 L FVC-%Pred-Pre 89 L FVC-LLN 2.62 L Fev1-Pred 2.43 L Fev1-Pre 1.99 L Fev1-%Pred-Pre 81 L Fev1-LLN 1.67 L Fev6-Pred 3.24 L Fev6-Pre 3.13 L Fev6-%Pred-Pre 96 L Fev6-LLN 2.37 L Sgo9fah-Tqqo 70 % Sar3csn-Eha 63 % Cfc9rdt-%Pred-Pre 90 % Aev4doq-JUL 61 % Usc1xir-Dvjk 92 % Aal8jpa-Oje 100 % Lgx1kwl-%Pred-Pre 108 % FEFMax-Pred 6.10 L/E/sec FEFMax-Pre 5.81 L/E/sec FEFMax-%Pred-Pre 95 L/E/sec FEFMax-LLN 3.88 L/E/sec Uuo4281-Gvmq 1.54 L/E/sec Frk7500-Big 1.11 L/E/sec Ocw9063-%Pred-Pre 71 L/E/sec Rok2412-WVU 0.00 L/E/sec ExpTime-Pre 4.87 sec Fea9sno9-Qskr 75 % Ipc9zhw3-Rdu 63 % Soj9uus0-%Pred-Pre 84 % Nso8mjk0-SKU 66 % 1 FINAL DIAGNOSIS Colon, polyp, polypectomy: Fecal material only. 03/14/2021 - 1340 CLINICAL DIAGNOSIS History colon polyps 03/13/2021 - 1507 GROSS DIAGNOSIS Received in formalin labeled "colon polyp" consists of multiple fragments, including possible tissue and fecal material measuring 0.4 x 0.4 x 0.2 cm in aggregate. All in one.. -SV 03/13/2021 - 1507 Signed KIET WEIR MD 03/14/2021 1340 Procedures Date Code Description Status 03/13/2021 91235 Colonoscopy W/ Poly Completed 02/23/2021 03944 Office/Outpatient Established Mo d MDM 30-39 Min Completed 02/23/2021 21262 Spirometry Completed 02/20/2021 00439 Office/Outpatient New Low MDM 30 -44 Minutes Completed Medical Devices Description No Information Available Encounters Type Date Location Provider Dx Diagnosis Office Visit 02/23/2021 11:30a 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 Pulmonary/Thoracic * 03/27/2021 1:00 pm - SAMI Salmeron at 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
--- OUTSIDE RECORDS SUMMARY | 2021-05-24 17:20 | CCD | Continuity of Care Document ---
Author Author Tahir CAMPOS MD Organization Unknown Address [address] [address] Phone [phone] Care Team Providers Care Dive Superintendent Name Role Phone VillegasEbony R.P.A. AUTM [phone] Problems Active Problems Provider Date Essential hypertension [...] bled in - [place] Unknown Calcium 500/D 380-045km-Rfdo Chewt abs 1 tab by mouth twice [...] by mouth every day Unknown Move Free [facility] Advanced T ablets 1 tab by mouth every day Unknown 0 Acetaminophen 500mg Tablets 2 tabs by mouth twice a day Unknown Spiriva Handihaler 18mcg Capsules 1 cap inhalation every in the morning Unknown Vitamin C 1000mg Tablets 1 tab by mouth every day Unknown Immunizations CPT Code Status Date Vaccine Lot # [id number] Given 05/18/2020 Afluria, Quadrivalent, 0.5ml , [facility]# [id number] 12944 Given 01/06/2018 Prevnar 13 [id number] 45518 Given 05/05/2014 Influenza Virus Split 3 Yrs And Above For Intramuscular Use Q2036 Given 05/01/2011 Influenza Vaccine 3 Years Of Age Or Older (Flulaval) 34979 Given 05/03/2010 Influenza Virus Split 3 Yrs And Above For Intramuscular Use Vital Signs Date Vital Result Comment 02/23/2021 11:01am BP Systolic 130 mmHg BP Diastolic 60 mmHg Heart Rate 100 /min O2 % BldC Oximetry 92 % Height 68.5 inches 5'8.50" Weight 198.00 lb BMI (Body Mass Index) 29.7 kg/m2 [place] Body Weight 154 lb Weight 89.813 kg BSA (Body Surface Area) 2.05 m2 02/20/2021 11:22am BP Systolic 134 mmHg BP Diastolic 58 mmHg Body Temperature 98.5 F Height 68.5 inches 5'8.50" Weight 197.12 lb BMI (Body Mass Index) 29.5 kg/m2 [place] Body Weight 154 lb Weight 89.416 kg BSA (Body Surface Area) 2.04 m2 Results Test Acquired Date Facility Test Result H/L Range Note Laboratory test finding 03/13/2021 [facility] Main Lab [address] [place] [address] [phone] Pathology Request For Service (SEE NOTE) 1 FVL/Luis 02/23/2021 [facility] PDFReport SEE IMAGE FVC-Pred 3.52 L FVC-Pre 3.13 L FVC-%Pred-Pre 89 L FVC-LLN 2.62 L Fev1-Pred 2.43 L Fev1-Pre 1.99 L Fev1-%Pred-Pre 81 L Fev1-LLN 1.67 L Fev6-Pred 3.24 L Fev6-Pre 3.13 L Fev6-%Pred-Pre 96 L Fev6-LLN 2.37 L Wde7nbg-Krzx 70 % Kwz9ddi-Mgo 63 % Oah5mij-%Pred-Pre 90 % Mdi9mqo-OMQ 61 % Pvc5rlk-Qpyq 92 % Paz9ptj-Xhk 100 % Fsx7hsw-%Pred-Pre 108 % FEFMax-Pred 6.10 L/E/sec FEFMax-Pre 5.81 L/E/sec FEFMax-%Pred-Pre 95 L/E/sec FEFMax-LLN 3.88 L/E/sec Xsx0004-Wxjg 1.54 L/E/sec Nmr4352-Rzf 1.11 L/E/sec God8599-%Pred-Pre 71 L/E/sec Mxh0976-UKS 0.00 L/E/sec ExpTime-Pre 4.87 sec Cna6xur7-Vjek 75 % Eio5cml0-Oug 63 % Khj3vyl9-%Pred-Pre 84 % Lus4vhp7-VPE 66 % 1 FINAL DIAGNOSIS Colon, polyp, [...] 1340 Procedures Date Code Description Status 03/13/2021 68850 Colonoscopy W/ Poly Completed 02/23/2021 56103 Office/Outpatient Established Mo d MDM 30-39 Min Completed 02/23/2021 06420 Spirometry Completed 02/20/2021 11339 Office/Outpatient New Low MDM 30 -44 Minutes Completed Medical Devices Description No Information Available Encounters Type Date Location Provider Dx Diagnosis Office Visit 02/23/2021 11:30a [facility] Pulmonary/Thoracic SAMI Rich 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
--- OUTSIDE RECORDS SUMMARY | 2021-05-24 17:21 | CCD ---
Author Author [facility] Organization [facility] Address Unknown Phone Unavailable Care Team Providers Care Brickmason Apprentice Name Role Phone Jennifer Flowers RN Unavailable Unavailable Jennifer Flowers RN Unavailable Unavailable Jennifer Flowers RN Unavailable Unavailable Jennifer Flowers RN Unavailable Unavailable Jennifer Flowers RN Unavailable Unavailable Jennifer Flowers RN Unavailable Unavailable Jennifer Flowers RN Unavailable Unavailable Jennifer Flowers RN Unavailable Unavailable Jennifer Flowers RN Unavailable Unavailable Jennifer Flowers RN Unavailable Unavailable Jennifer Flowers RN Unavailable Unavailable Jennifer Flowers RN Unavailable Unavailable Jennifer Flowers RN Unavailable Unavailable Jennifer Flowers RN Unavailable Unavailable Jennifer Flowers RN Unavailable Unavailable Jennifer Flowers RN Unavailable Unavailable Jennifer Flowers RN Unavailable Unavailable Card, L Mary RPA Unavailable Unavailable Card, L Mary RPA Unavailable Unavailable Card, L Mary RPA Unavailable Unavailable Card, L Mary RPA Unavailable Unavailable Card, L Mary RPA Unavailable Unavailable Card, L Mary RPA Unavailable Unavailable Card, L Mary RPA Unavailable Unavailable Card, L Mary RPA Unavailable Unavailable Card, L Mary RPA Unavailable Unavailable Card, L Mary RPA Unavailable Unavailable Card, L Mary RPA Unavailable Unavailable Card, L Mary RPA Unavailable Unavailable Card, L Mary RPA Unavailable Unavailable Card, L Mary RPA Unavailable Unavailable Card, L Mary RPA Unavailable Unavailable Card, L Mary RPA Unavailable Unavailable Card, L Mary RPA Unavailable Unavailable Card, L Mary RPA Unavailable Unavailable Card, L Mary RPA Unavailable Unavailable Card, L Mary RPA Unavailable Unavailable Card, L Mary RPA Unavailable Unavailable Card, L Mary RPA Unavailable Unavailable Card, L Mary RPA Unavailable Unavailable Card, L Mary RPA Unavailable Unavailable Card, L Mary RPA Unavailable Unavailable Card, L Mary RPA Unavailable Unavailable Card, L Mary RPA Unavailable Unavailable Card, L Mary RPA Unavailable Unavailable Card, L Mary RPA Unavailable Unavailable Card, L Mary RPA Unavailable Unavailable Card, L Mary RPA Unavailable Unavailable Card, L Mary RPA Unavailable Unavailable VaneenKerry cantu MD Unavailable Unavailable Vaneendougam, Kerry Funk MD Unavailable Unavailable Vaneenenaam, Kerry Funk MD Unavailable Unavailable Vaneenenaam, Kerry Funk MD Unavailable Unavailable VaneenKerry cantu MD Unavailable Unavailable Vanjevon, Kerry Funk MD Unavailable Unavailable VaneendougamKerry MD Unavailable Unavailable Vaneendougam, Kerry Funk MD Unavailable Unavailable Vaneendougam, Kerry Funk MD Unavailable Unavailable Vaneendougam, Kerry Funk MD Unavailable Unavailable VaneendougamKerry MD Unavailable Unavailable Vanjevon, Kerry Funk MD Unavailable Unavailable VanKerry escoto MD Unavailable Unavailable VananaamKerry MD Unavailable Unavailable VananaamKerry MD Unavailable Unavailable VaneendougamKerry MD Unavailable Unavailable VanKerry escoto MD Unavailable Unavailable VanKerry escoto MD Unavailable Unavailable VanKerry escoto MD Unavailable Unavailable VanKerry escoto MD Unavailable Unavailable VaneenKerry cantu MD Unavailable Unavailable VanKerry escoto MD Unavailable Unavailable VanKerry escoto MD Unavailable Unavailable VanKerry escoto MD Unavailable Unavailable Kerry Stanton MD Unavailable Unavailable VanKerry escoto MD Unavailable Unavailable VanKerry escoto MD Unavailable Unavailable VananaamKerry MD Unavailable Unavailable VananaamKerry MD Unavailable Unavailable VananaamKerry MD Unavailable Unavailable VanKerry escoto MD Unavailable Unavailable Kerry Stanton MD Unavailable Unavailable VanKerry escoto MD Unavailable Unavailable VananaamKerry MD Unavailable Unavailable VaneendougamKerry MD Unavailable Unavailable VaneenenaamKerry MD Unavailable Unavailable Vaneenenaam, Kerry Funk MD Unavailable Unavailable Vaneenenaam, Kerry Funk MD Unavailable Unavailable Vaneenenaam, Kerry Funk MD Unavailable Unavailable Vaneenenaam, Kerry Funk MD Unavailable Unavailable Vaneenenaam, Kerry Funk MD Unavailable Unavailable Vaneenenaam, Kerry Funk MD Unavailable Unavailable Vaneenenaam, Kerry Funk MD Unavailable Unavailable Vaneenenaam, Kerry Funk MD Unavailable Unavailable Vaneenenaam, Kerry Funk MD Unavailable Unavailable Vaneenenaam, Kerry Funk MD Unavailable Unavailable Samantha, M Manjula MILL TURNER Unavailable Unavailable Samantha, M Manjula MILL TURNER Unavailable Unavailable Samantha, M Manjula MILL TURNER Unavailable Unavailable Samantha, M Manjula MILL TURNER Unavailable Unavailable Samantha, M Manjula MILL TURNER Unavailable Unavailable Samantha, M Manjula MILL TURNER Unavailable Unavailable Samantha, M Manjula MILL TURNER Unavailable Unavailable Samantha, M Manjula MILL TURNER Unavailable Unavailable Samantha, M Manjula MILL TURNER Unavailable Unavailable Samantha, M Manjula MILL TURNER Unavailable Unavailable Samantha, M Manjula MILL TURNER Unavailable Unavailable Samantha, M Manjula MILL TURNER Unavailable Unavailable Samantha, M Manjula MILL TURNER Unavailable Unavailable Samantha, M Manjula MILL TURNER Unavailable Unavailable Samantha, M Manjula MILL TURNER Unavailable Unavailable Samantha, M Manjula MILL TURNER Unavailable Unavailable Samantha, M Manjula MILL TURNER Unavailable Unavailable Samantha, M Manjula MILL TURNER Unavailable Unavailable Samantha, M Manjula MILL TURNER Unavailable Unavailable Samantha, M Manjula MILL TURNER Unavailable Unavailable Samantha, M Manjula MILL TURNER Unavailable Unavailable Samantha, M Manjula MILL TURNER Unavailable Unavailable Samantha, M Manjula MILL TURNER Unavailable Unavailable Samantha, M Manjula MILL TURNER Unavailable Unavailable Samantha, M Manjula MILL TURNER Unavailable Unavailable Samantha, M Manjula MILL TURNER Unavailable Unavailable Samantha, M Manjula MILL TURNER Unavailable Unavailable Samantha, M Manjula MILL TURNER Unavailable Unavailable Samantha, M Manjula MILL TURNER Unavailable Unavailable Samantha, M Manjula MILL TURNER Unavailable Unavailable Samantha, M Manjula MILL TURNER Unavailable Unavailable Samanhta, M Manjula MILL TURNER Unavailable Unavailable Samantha, M Manjula MILL TURNER Unavailable Unavailable Samantha, M Manjula MILL TURNER Unavailable Unavailable Samantha, M Manjula MILL TURNER Unavailable Unavailable Samantha, M Manjula MILL TURNER Unavailable Unavailable Samantha, M Manjula MILL TURNER Unavailable Unavailable Samantha, M Manjula MILL TURNER Unavailable Unavailable Samantha, M Manjula MILL TURNER Unavailable Unavailable PATEL, M LAVON PA Unavailable Unavailable PATEL, M LAVON PA Unavailable Unavailable PATEL, M LAVON PA Unavailable Unavailable PATEL, M LAVON PA Unavailable Unavailable PATEL, M LAVON PA Unavailable Unavailable PATEL, M LAVON PA Unavailable Unavailable PATEL, M LAVON PA Unavailable Unavailable PATEL, M LAVON PA Unavailable Unavailable PATEL, M LAVON PA Unavailable Unavailable PATEL, M LAVON PA Unavailable Unavailable PATEL, M LAVON PA Unavailable Unavailable PATEL, M LAVON PA Unavailable Unavailable PATEL, M LAVON PA Unavailable Unavailable PATEL, M ALVON PA Unavailable Unavailable PATEL, M LAVON PA Unavailable Unavailable PATEL, M LAVON PA Unavailable Unavailable PATEL, M LAVON PA Unavailable Unavailable PATEL, M LAVON PA Unavailable Unavailable PATEL, M LAVON PA Unavailable Unavailable PATEL, M LAVON PA Unavailable Unavailable PATEL, M LAVON PA Unavailable Unavailable PATEL, M LAVON PA Unavailable Unavailable PATEL, M LAVON PA Unavailable Unavailable PATEL, M LAVON PA Unavailable Unavailable PATEL, M LAVON PA Unavailable Unavailable PATEL, M LAVON PA Unavailable Unavailable PATEL, M LAVON PA Unavailable Unavailable PATEL, M LAVON PA Unavailable Unavailable PATEL, M LAVON PA Unavailable Unavailable PATEL, M LAVON PA Unavailable Unavailable PATEL, M LAVON PA Unavailable Unavailable PATEL, M LAVON PA Unavailable Unavailable PATEL, M LAVON PA Unavailable Unavailable PATEL, M LAVON PA Unavailable Unavailable PATEL, M LAVON PA Unavailable Unavailable Gina Isabel MD, FACC Unavailable Unavailable Gina Isabel MD, FACC Unavailable Unavailable Gina Isabel MD, FACC Unavailable Unavailable Gina Isabel MD, FACC Unavailable Unavailable Gina Isabel MD, FACC Unavailable Unavailable Gina Isabel MD, FACC Unavailable Unavailable Gina Isabel MD, FACC Unavailable Unavailable Gina Isabel MD, FACC Unavailable Unavailable Gina Isabel MD, FACC Unavailable Unavailable Gina Isabel MD, FACC Unavailable Unavailable Gina Isabel MD, FACC Unavailable Unavailable Gina Isabel MD, FACC Unavailable Unavailable Gina Isabel MD, FACC Unavailable Unavailable Gina Isabel MD, FACC Unavailable Unavailable Gabris, Gina Cheng MD, [facility] Unavailable Unavailable Gabris, Gina Cheng MD, [facility] Unavailable Unavailable Gabris, Gina Cheng MD, [facility] Unavailable Unavailable Gabris, Gina Cheng MD, [facility] Unavailable Unavailable Gabris, Gina Cheng MD, [facility] Unavailable Unavailable Gabris, Gina Cheng MD, [facility] Unavailable Unavailable Gabris, Gina Cheng MD, [facility] Unavailable Unavailable Gabris, Gina Cheng MD, [facility] Unavailable Unavailable Gabris, Gina Cheng MD, [facility] Unavailable Unavailable Gabris, Gina Cheng MD, [facility] Unavailable Unavailable Gabris, Gina Cheng MD, [facility] Unavailable Unavailable Gabris, Gina Cheng MD, [facility] Unavailable Unavailable Gabris, Gina Cheng MD, [facility] Unavailable Unavailable Gabris, Gina Cheng MD, [facility] Unavailable Unavailable Gabris, Gina Cheng MD, [facility] Unavailable Unavailable Gabris, Gina Cheng MD, [facility] Unavailable Unavailable Gabris, Gina Cheng MD, [facility] Unavailable Unavailable Gabris, Gina Cheng MD, [facility] Unavailable Unavailable Gabris, Gina Cheng MD, [facility] Unavailable Unavailable Gabris, Gina Cheng MD, [facility] Unavailable Unavailable Gabris, Gina Cheng MD, [facility] Unavailable Unavailable Gabris, Gina Cheng MD, [facility] Unavailable Unavailable Gabris, Gina Cheng MD, [facility] Unavailable Unavailable Gabris, Gina Cheng MD, [facility] Unavailable Unavailable Gabris, Gina Cheng MD, [facility] Unavailable Unavailable Gabris, Gina Cheng MD, [facility] Unavailable Unavailable Gabris, Gina Cheng MD, [facility] Unavailable Unavailable Gabris, Gina Cheng MD, [facility] Unavailable Unavailable Gabris, Gina Cheng MD, [facility] Unavailable Unavailable Gabris, Gina Cheng MD, [facility] Unavailable Unavailable Gabris, Gina Cheng MD, [facility] Unavailable Unavailable Gabris, Gina Cheng MD, [facility] Unavailable Unavailable Gabris, Gina Cheng MD, [facility] Unavailable Unavailable Gabris, Gina Cheng MD, [facility] Unavailable Unavailable Gabris, Gina Cheng MD, [facility] Unavailable Unavailable Gabris, Gina Cheng MD, [facility] Unavailable Unavailable Gabris, Gina Cheng MD, [facility] Unavailable Unavailable Gabris, Gina Cheng MD, [facility] Unavailable Unavailable Gabris, Gina Cheng MD, [facility] Unavailable Unavailable Gabris, Gina Cheng MD, [facility] Unavailable Unavailable Gabris, Gina Cheng MD, [facility] Unavailable Unavailable Gabris, Gina Cheng MD, [facility] Unavailable Unavailable Gabris, Gina Cheng MD, [facility] Unavailable Unavailable Gabris, Gina Cheng MD, [facility] Unavailable Unavailable Gabris, Gina Cheng MD, [facility] Unavailable Unavailable Gabris, Gina Cheng MD, [facility] Unavailable Unavailable Gabris, Gina Cheng MD, [facility] Unavailable Unavailable Gabris, Gina Cheng MD, [facility] Unavailable Unavailable Gabris, Gina Cheng MD, [facility] Unavailable Unavailable Gabris, Gina Cheng MD, [facility] Unavailable Unavailable Gabris, Gina Cheng MD, [facility] Unavailable Unavailable Gabris, Gina Cheng MD, [facility] Unavailable Unavailable Gabris, Gina Cheng MD, FACC Unavailable Unavailable Gabris, Gina Cheng MD, FACC Unavailable Unavailable Gabris, Gina Cheng MD, [facility] Unavailable Unavailable Gabris, Gina Cheng MD, [facility] Unavailable Unavailable Gabris, Gina Cheng MD, FACC Unavailable Unavailable Re-disclosure Warning The records that you are about to access may contain information from federally-assisted alcohol or drug abuse programs. If such information is present, then the following federally mandated warning applies: This information has been disclosed to you from records protected by federal confidentiality rules (42 CFR part 2). The federal rules prohibit you from making any further disclosure of this information unless further disclosure is expressly permitted by the written consent of the person to whom it pertains or as otherwise permitted by 42 CFR part 2. A general authorization for the release of medical or other information is NOT sufficient for this purpose. The Federal rules restrict any use of the information to criminally investigate or prosecute any alcohol or drug abuse patient.The records that you are about to access may contain highly sensitive health information, the redisclosure of which is protected by Article 27-F of the [facility] Public Health law. If you continue you may have access to information: Regarding HIV / AIDS; Provided by facilities licensed or operated by the [facility] Office of Mental Health; or Provided by the [facility] Office for People With Developmental Disabilities. If such information is present, then the following [facility] mandated warning applies: This information has been disclosed to you from confidential records which are protected by state law. State law prohibits you from making any further disclosure of this information without the specific written consent of the person to whom it pertains, or as otherwise permitted by law. Any unauthorized further disclosure in violation of state law may result in a fine or fci sentence or both. A general authorization for the release of medical or other information is NOT sufficient authorization for further disc losure. Family History Family Member Name Family Member Gender Family Member Status Date o f Status Description Data Source(s) Unknown Male Problem MEDENT ([facility]) Unknown Male Problem MEDENT ([facility], ) () Encounters Encounter Providers Location Date Indications Data Source(s ) [place] [address] [address] 05/02/2021 12:00:00 AM EDT eCW1 ([facility]) [place] [address] [address] 03/06/2021 12:00:00 AM EDT eCW1 ([facility]) Outpatient Attender: LAVON Rodriguez/Leakey/Quique/Rein dl 02/23/2021 11:30:00 AM EDT MEDENT ([facility] Outpatient Attender: Mary Rodriguez/Leakey/Quique/R eindl 02/20/2021 11:30:00 AM EDT MEDENT ([facility], ) [place] [address] [facility] [address] 01/26/2021 12:00:00 AM EDT eCW1 ([facility]) OFFICE OUTPATIENT VISIT 15 MINUTES Attender: Kerry eric MD Physical Therapy 01/11/2021 10:45:00 AM EDT MEDENT ([facility] ) Outpatient Attender: Manjula BARRETT 12/27/2020 11:59: 00 PM EDT [facility], Outpatient Attender: Jennifer Flowers RNAttender: Prosper Isabel MD, [facility] [email or web address] 12/15/2020 10:27:52 AM EDT - 12/15/2020 11:29:35 AM EDT [facility] Outpatient 11/16/2020 03:14:22 PM EDT MEGHAN ([facility]) Office Visit, Est Pt., Level 4 PC [address] [place] [address] 10/06/2020 12:00:00 AM EDT eCW1 ([facility]) Outpatient Attender: LAVON Rodriguez/Leakey/Quique/Rein dl 08/25/2020 01:00:00 PM EST MEDENT ([facility]) Office Visit, Est Pt., Level 4 PC [address] [place] [address] 07/19/2020 12:00:00 AM EST eCW1 ([facility]) Unknown [address] [facility] [address] 06/29/2020 12:00:00 AM EST eCW1 ([facility]) Unknown [address] [facility] [address] 06/29/2020 12:00:00 AM EST eCW1 ([facility]) Unknown [facility] [address] 06/20/2020 12:00:00 AM EST eCW1 ([facility]) Outpatient Attender: Prosper Isabel MD, [facility] [email or web address] 06/16/2020 12:00:00 AM EST - 06/16/2020 10:09:44 AM EST [facility] Outpatient Attender: Prosper Isabel MD, FACCReferre r: Prosper Isabel MD, [facility] [email or web address] 05/19/2020 07:58:30 AM [facility] Outpatient Attender: Prosper Isabel MD, FACCReferre r: Prosper Isabel MD, [facility] [email or web address] 05/19/2020 12:00:00 AM EST - 05/19/2020 09:18:05 AM [facility] TeleMedicine Phone E/M by Phys 11-[address] [place] [phone] 05/16/2020 12:00:00 AM EST eCW1 ([facility]) Office Visit, Est Pt., Level 4 PC [address] [place] [address] 05/13/2020 12:00:00 AM EDT eCW1 ([facility]) Unknown [address] [place] [phone] 05/13/2020 12:00:00 AM EDT eCW1 ([facility]) [place] [address] [address] 05/06/2020 12:00:00 AM EDT eCW1 ([facility]) [place] [address] [facility] [address] 05/03/2020 12:00:00 AM EDT eCW1 ([facility]) [place]patient [address] [facility] [address] 05/02/2020 12:00:00 AM EDT eCW1 ([facility]) Office Visit, Est Pt., Level 3 PC [address] [place] [address] 04/29/2020 12:00:00 AM EDT eCW1 ([facility]) Unknown [address] [facility] [address] 04/28/2020 12:00:00 AM EDT eCW1 ([facility]) Office Visit, Est Pt., Level 4 PC [address] [place] [address] 04/25/2020 12:00:00 AM EDT eCW1 ([facility]) Immunizations Vaccine Date Status Description Data Source(s) COVID-19 VACCINE Moderna 04/03/2021 12:00:00 AM EDT completed [employer] Vaccine Series Complete: YESThis Data wa s Submitted to [facility] Via [employer]. COVID-19 dose #2 given elsewhere Unspecified 08/29/2020 02:0 1:00 PM EST completed eCW1 ([facility]) COVID-19 dose #2 given elsewhere Unspecified 08/29/2020 02:0 1:00 PM EST completed eCW1 ([facility]) COVID-19 dose #2 given elsewhere Unspecified 08/29/2020 02:0 1:00 PM EST completed eCW1 ([facility]) COVID-19 dose #2 given elsewhere Unspecified 08/29/2020 02:0 1:00 PM EST completed eCW1 ([facility]) COVID-19 VACCINE Moderna 08/29/2020 12:00:00 AM EST completed [employer] Vaccine Series Complete: YESThis Data wa s Submitted to [facility] Via [employer]. COVID-19 VACCINE, [id number], LNP-S (MODERNA)/PF 08/29/2020 1 2:00:00 AM EST completed [facility] COVID-19 dose #1 given elsewhere Unspecified 08/01/2020 02:0 1:00 PM EST completed eCW1 ([facility]) COVID-19 dose #1 given elsewhere Unspecified 08/01/2020 02:0 1:00 PM EST completed eCW1 ([facility]) COVID-19 dose #1 given elsewhere Unspecified 08/01/2020 02:0 1:00 PM EST completed eCW1 ([facility]) COVID-19 dose #1 given elsewhere Unspecified 08/01/2020 02:0 1:00 PM EST completed eCW1 ([facility]) COVID-19 VACCINE, MRNA-[id number], LNP-S (MODERNA)/PF 08/01/2020 1 2:00:00 AM EST completed [facility] COVID-19 VACCINE Moderna 08/01/2020 12:00:00 AM EST completed [facility] Vaccine Series Complete: NOThis Data was Submitted to [facility] Via [employer]. New in 2011. IIV4 05/18/2020 12:56:00 PM EST completed MEDENT ([facility]) influenza, recombinant, quadrIvalent,injectable, prese rvative free 04/15/2020 12:08:00 PM EDT completed eCW1 ([facility]) influenza, recombinant, quadrIvalent,injectable, prese rvative free 04/15/2020 12:08:00 PM EDT completed eCW1 ([facility]) influenza, recombinant, quadrIvalent,injectable, prese rvative free 04/15/2020 12:08:00 PM EDT completed eCW1 ([facility]) influenza, recombinant, quadrIvalent,injectable, prese rvative free 04/15/2020 12:08:00 PM EDT completed eCW1 ([facility]) influenza, recombinant, quadrIvalent,injectable, prese rvative free 04/15/2020 12:08:00 PM EDT completed eCW1 ([facility]) influenza, recombinant, quadrIvalent,injectable, prese rvative free 04/15/2020 12:08:00 PM EDT completed eCW1 ([facility]) influenza, recombinant, quadrIvalent,injectable, prese rvative free 04/15/2020 12:08:00 PM EDT completed eCW1 ([facility]) influenza, recombinant, quadrIvalent,injectable, prese rvative free 04/15/2020 12:08:00 PM EDT completed eCW1 ([facility]) influenza, recombinant, quadrIvalent,injectable, prese rvative free 04/15/2020 12:08:00 PM EDT completed eCW1 ([facility]) influenza, recombinant, quadrIvalent,injectable, prese rvative free 04/15/2020 12:08:00 PM EDT completed eCW1 ([facility]) influenza, recombinant, quadrIvalent,injectable, prese rvative free 04/15/2020 12:08:00 PM EDT completed eCW1 ([facility]) influenza, recombinant, quadrIvalent,injectable, prese rvative free 04/15/2020 12:08:00 PM EDT completed eCW1 ([facility]) influenza, recombinant, quadrIvalent,injectable, prese rvative free 04/15/2020 12:08:00 PM EDT completed eCW1 ([facility]) influenza, recombinant, quadrIvalent,injectable, prese rvative free 04/15/2020 12:08:00 PM EDT completed eCW1 ([facility]) influenza, recombinant, quadrIvalent,injectable, prese rvative free 04/15/2020 12:08:00 PM EDT completed eCW1 ([facility]) influenza, recombinant, quadrIvalent,injectable, prese rvative free 04/15/2020 12:08:00 PM EDT completed eCW1 ([facility]) INFLUENZA VACCINE QUADRIVALENT 2019- (65 YR UP)/MF59 C.1/PF 04/15/2020 12:00:00 AM EDT completed [facility] Medications Medication Brand Name Start Date Product Form Dose Route Admi nistrative Instructions Pharmacy Instructions Status Indications Reaction Description Data Source(s) 60 mcg (15 mcg x 4)/0.5 mL 04/28/2021 12:00:00 AM EDT syring e 0 TO BE ADMINISTERED BY A PHARMACIST TO BE ADMINISTERED BY A PHARMACIST SOLD: 04/28/2021 [facility] 100 mcg/0.5 mL 04/03/2021 12:00:00 AM EDT suspension 0 INJECT DIRECTED (THIRD DOSE) INJECT DIRECTED (THIRD DOSE) SOLD: 04/03/2021 [facility] SUPREP BOWEL PREP KIT 17.5-3.13-1.6 gram SODIUM, POTASSIUM,M AG SULFATES 03/07/2021 12:00:00 AM EDT recon soln 354 USE DIRECTED USE DIRECTED SOLD: 03/09/2021 [facility] Suprep Bowel Prep Kit Suprep Bowel Prep Kit 03/06/2021 12:00:00 AM EDT active MEDENT ([facility]) 10 mEq 03/06/2021 12:00:00 AM EDT tablet,ER particles/cry stals 320 TAKE TWO TABLETS BY MOUTH TWICE A DAY TAKE TWO TABLETS BY MOUTH TWICE A DAY SOLD: 03/09/2021 [facility] 20 mg 01/26/2021 12:00:00 AM EDT tablet 360 TAKE TWO TABLETS BY MOUTH TWICE A DAY TAKE TWO TABLETS BY MOUTH TWICE A DAY SOLD: 01/27/2021 [facility] 0.4 mg 01/26/2021 12:00:00 AM EDT capsule 90 TAKE ONE CAPSULE BY MOUTH EVERY DAY 30 MINUTES AFTER THE SAME MEAL EACH DAY TAKE ONE CAPSULE BY MOUTH EVERY DAY 30 MINUTES AFTER THE SAME MEAL EACH DAY SOLD: 02/10/2021 [facility] 137 mcg (0.1 %) 01/26/2021 12:00:00 AM EDT aerosol,spray 90 SPRAY ONE SPRAY IN EACH NOSTRIL TWICE A DAY SPRAY ONE SPRAY IN EACH NOSTRIL TWICE A DAY SOLD: 02/10/2021 [facility] Lovastatin 10 MG Oral Tablet LOVASTATIN 01/21/2021 12:00:00 AM EDT tab let 90 TAKE ONE TABLET BY MOUTH EVERY DAY WITH A MEAL TAKE ONE TABLET BY MOUTH EVERY DAY WITH A MEAL SOLD: 05/01/2021 [facility] Lovastatin 10 MG Oral Tablet LOVASTATIN 01/21/2021 12:00:00 AM EDT tab let 90 TAKE ONE TABLET BY MOUTH EVERY DAY WITH A MEAL TAKE ONE TABLET BY MOUTH EVERY DAY WITH A MEAL SOLD: 01/27/2021 [facility] 18 mcg 01/14/2021 12:00:00 AM EDT capsule, w/inhalation d evice 90 INHALE THE CONTENTS OF ONE CAPSULE VIA HANDIHALER BY MOUTH EVERY DAY INHALE THE CONTENTS OF ONE CAPSULE VIA HANDIHALER BY MOUTH EVERY DAY SOLD: 01/27/2021 [facility] 18 mcg 01/14/2021 12:00:00 AM EDT capsule, w/inhalation d evice 90 INHALE THE CONTENTS OF ONE CAPSULE VIA HANDIHALER BY MOUTH EVERY DAY INHALE THE CONTENTS OF ONE CAPSULE VIA HANDIHALER BY MOUTH EVERY DAY SOLD: 04/17/2021 [facility] 500-50 mcg/dose 01/14/2021 12:00:00 AM EDT blister with alley ce 180 INHALE ONE PUFF BY MOUTH TWICE A DAY INHALE ONE PUFF BY MOUTH TWICE A DAY SOLD: 04/21/2021 [facility] 500-50 mcg/dose 01/14/2021 12:00:00 AM EDT blister with alley ce 180 INHALE ONE PUFF BY MOUTH TWICE A DAY INHALE ONE PUFF BY MOUTH TWICE A DAY SOLD: 01/17/2021 [facility] 100 mg 12/31/2020 12:00:00 AM EDT tablet 90 TAKE ONE TABLET BY MOUTH EVERY DAY TAKE ONE TABLET BY MOUTH EVERY DAY SOLD: 01/02/2021 [facility] 24 HR Diltiazem Hydrochloride 300 MG Extended Release Oral Capsule DILTIAZEM HCL 12/17/2020 12:00:00 AM EDT capsule,extended release 24hr 90 TAKE ONE CAPSULE BY MOUTH EVERY DAY TAKE ONE CAPSULE BY MOUTH EVERY DAY SOLD: 12/19/2020 [facility] 24 HR Diltiazem Hydrochloride 300 MG Extended Release Oral Capsule DILTIAZEM HCL 12/17/2020 12:00:00 AM EDT capsule,extended release 24hr 90 TAKE ONE CAPSULE BY MOUTH EVERY DAY TAKE ONE CAPSULE BY MOUTH EVERY DAY SOLD: 03/21/2021 [facility] 20 mg 12/17/2020 12:00:00 AM EDT tablet 180 TAKE TWO TABLETS BY MOUTH TWICE A DAY TAKE TWO TABLETS BY MOUTH TWICE A DAY SOLD: 12/19/2020 [facility] 10 mEq 08/27/2020 12:00:00 AM EST tablet,ER particles/cry stals 360 TAKE TWO TABLETS BY MOUTH TWICE A DAY WITH FOOD TAKE TWO TABLETS BY MOUTH TWICE A DAY WITH FOOD SOLD: 09/02/2020 [facility] 10 mEq 08/27/2020 12:00:00 AM EST tablet,ER particles/cry stals 360 TAKE TWO TABLETS BY MOUTH TWICE A DAY WITH FOOD TAKE TWO TABLETS BY MOUTH TWICE A DAY WITH FOOD SOLD: 11/21/2020 [facility] Lovastatin 10 MG Oral Tablet LOVASTATIN 08/15/2020 12:00:00 AM EST tab let 90 TAKE ONE TABLET BY MOUTH EVERY DAY WITH MEAL TAKE ONE TABLET BY MOUTH EVERY DAY WITH MEAL SOLD: 08/17/2020 [facility] Lovastatin 10 MG Oral Tablet LOVASTATIN 08/15/2020 12:00:00 AM EST tab let 90 TAKE ONE TABLET BY MOUTH EVERY DAY WITH MEAL TAKE ONE TABLET BY MOUTH EVERY DAY WITH MEAL SOLD: 10/24/2020 [facility] Nystatin 100 UNT/MG Topical Powder 100,000 unit/gram NYSTATI N 07/20/2020 12:00:00 AM EST powder 30 APPLY TO AFFECTE D AREA(S) TWO TIMES A DAY NEEDED FOR RASH IF SKIN IS MOIST APPLY TO AFFECTED AREA(S) TWO TIMES A DA Y NEEDED FOR RASH IF SKIN IS MOIST SOLD: 07/26/2020 [facility] 0.4 mg 06/30/2020 12:00:00 AM EST capsule 90 TAKE ONE CAPSULE BY MOUTH EVERY DAY 30 MINUTES AFTER THE SAME MEAL EACH DAY TAKE ONE CAPSULE BY MOUTH EVERY DAY 30 MINUTES AFTER THE SAME MEAL EACH DAY SOLD: 07/05/2020 [facility] 137 mcg (0.1 %) 06/30/2020 12:00:00 AM EST aerosol,spray 90 SPRAY ONE SPRAY IN EACH NOSTRIL TWICE A DAY SPRAY ONE SPRAY IN EACH NOSTRIL TWICE A DAY SOLD: 07/05/2020 [facility] 0.4 mg 06/30/2020 12:00:00 AM EST capsule 90 TAKE ONE CAPSULE BY MOUTH EVERY DAY 30 MINUTES AFTER THE SAME MEAL EACH DAY TAKE ONE CAPSULE BY MOUTH EVERY DAY 30 MINUTES AFTER THE SAME MEAL EACH DAY SOLD: 10/24/2020 [facility] 500-50 mcg/dose 06/30/2020 12:00:00 AM EST blister with alley ce 180 INHALE ONE PUFF BY MOUTH TWICE A DAY INHALE ONE PUFF BY MOUTH TWICE A DAY SOLD: 07/05/2020 [facility] 90 mcg/actuation 06/30/2020 12:00:00 AM EST HFA aerosol inha ler 54 INHALE TWO PUFFS BY MOUTH EVERY 4 HOURS NEEDED FOR SHORTNESS OF BREATH INHALE TWO PUFFS BY MOUTH EVERY 4 HOURS NEEDED FOR SHORTNESS OF BREATH SOLD: 07/05/2020 [facility] 20 mg 06/30/2020 12:00:00 AM EST tablet 360 TAKE TWO TABLETS BY MOUTH TWICE A DAY TAKE TWO TABLETS BY MOUTH TWICE A DAY SOLD: 09/27/2020 [facility] 18 mcg 06/30/2020 12:00:00 AM EST capsule, w/inhalation d evice 90 INHALE THE CONTENTS OF ONE CAPSULE VIA HANDIHALER BY MOUTH EVERY DAY INHALE THE CONTENTS OF ONE CAPSULE VIA HANDIHALER BY MOUTH EVERY DAY SOLD: 10/17/2020 [facility] 137 mcg (0.1 %) 06/30/2020 12:00:00 AM EST aerosol,spray 90 SPRAY ONE SPRAY IN EACH NOSTRIL TWICE A DAY SPRAY ONE SPRAY IN EACH NOSTRIL TWICE A DAY SOLD: 11/28/2020 [facility] 18 mcg 06/30/2020 12:00:00 AM EST capsule, w/inhalation d evice 90 INHALE THE CONTENTS OF ONE CAPSULE VIA HANDIHALER BY MOUTH EVERY DAY INHALE THE CONTENTS OF ONE CAPSULE VIA HANDIHALER BY MOUTH EVERY DAY SOLD: 07/05/2020 [facility] 100 mg 06/30/2020 12:00:00 AM EST tablet 90 TAKE ONE TABLET BY MOUTH EVERY DAY TAKE ONE TABLET BY MOUTH EVERY DAY SOLD: 09/27/2020 [facility] 100 mg 06/30/2020 12:00:00 AM EST tablet 90 TAKE ONE TABLET BY MOUTH EVERY DAY TAKE ONE TABLET BY MOUTH EVERY DAY SOLD: 07/05/2020 [facility] 500-50 mcg/dose 06/30/2020 12:00:00 AM EST blister with alley ce 180 INHALE ONE PUFF BY MOUTH TWICE A DAY INHALE ONE PUFF BY MOUTH TWICE A DAY SOLD: 10/17/2020 [facility] 20 mg 06/30/2020 12:00:00 AM EST tablet 360 TAKE TWO TABLETS BY MOUTH TWICE A DAY TAKE TWO TABLETS BY MOUTH TWICE A DAY SOLD: 07/05/2020 [facility] 24 HR Diltiazem Hydrochloride 300 MG Extended Release Oral Capsule DILTIAZEM HCL 06/21/2020 12:00:00 AM EST capsule,extended release 24hr 90 TAKE ONE CAPSULE BY MOUTH EVERY DAY TAKE ONE CAPSULE BY MOUTH EVERY DAY SOLD: 09/27/2020 [facility] 24 HR Diltiazem Hydrochloride 300 MG Extended Release Oral Capsule DILTIAZEM HCL 06/21/2020 12:00:00 AM EST capsule,extended release 24hr 90 TAKE ONE CAPSULE BY MOUTH EVERY DAY TAKE ONE CAPSULE BY MOUTH EVERY DAY SOLD: 06/24/2020 [facility] Metolazone 2.5 MG Oral Tablet Metolazone 2.5 MG 04/29/2020 12:00:00 AM EDT 1.0 {tablet} active Metolazone 2.5 MG eCW1 ([facility]) Metolazone 2.5 MG Oral Tablet Metolazone 2.5 MG 04/29/2020 12:00:00 AM EDT 1.0 {tablet} suspended Metolazone 2.5 MG eCW 1 ([facility]) Metolazone 2.5 MG Oral Tablet Metolazone 2.5 MG 04/29/2020 12:00:00 AM EDT 1.0 {tablet} suspended Metolazone 2.5 MG eCW 1 ([facility]) Metolazone 2.5 MG Oral Tablet Metolazone 2.5 MG 04/29/2020 12:00:00 AM EDT 1.0 {tablet} active Metolazone 2.5 MG eCW1 ([facility]) Metolazone 2.5 MG Oral Tablet Metolazone 2.5 MG 04/29/2020 12:00:00 AM EDT 1.0 {tablet} suspended Metolazone 2.5 MG eCW 1 ([facility]) Metolazone 2.5 MG Oral Tablet Metolazone 2.5 MG 04/29/2020 12:00:00 AM EDT 1.0 {tablet} suspended Metolazone 2.5 MG eCW 1 ([facility]) Metolazone 2.5 MG Oral Tablet Metolazone 2.5 MG 04/29/2020 12:00:00 AM EDT 1.0 {tablet} suspended Metolazone 2.5 MG eCW 1 ([facility]) 2.5 mg 04/29/2020 12:00:00 AM EDT tablet 30 TAKE ONE TABLET BY MOUTH EVERY DAY TAKE ONE TABLET BY MOUTH EVERY DAY SOLD: 04/29/2020 [facility] Metolazone 2.5 MG Oral Tablet Metolazone 2.5 MG 04/29/2020 12:00:00 AM EDT 1.0 {tablet} active Metolazone 2.5 MG eCW1 ([facility]) Metolazone 2.5 MG Oral Tablet Metolazone 2.5 MG 04/29/2020 12:00:00 AM EDT 1.0 {tablet} suspended Metolazone 2.5 MG eCW 1 ([facility]) Metolazone 2.5 MG Oral Tablet Metolazone 2.5 MG 04/29/2020 12:00:00 AM EDT 1.0 {tablet} active Metolazone 2.5 MG eCW1 ([facility]) Metolazone 2.5 MG Oral Tablet Metolazone 2.5 MG 04/29/2020 12:00:00 AM EDT 1.0 {tablet} active Metolazone 2.5 MG eCW1 ([facility]) 0.4 mg 03/21/2020 12:00:00 AM EDT capsule 90 TAKE 1 CAPSULE BY MOUTH EVERY DAY 30 MINUTES AFTER THE SAME MEAL EACH DAY TAKE 1 CAPSULE BY MOUTH EVERY DAY 30 MINUTES AFTER THE SAME MEAL EACH DAY SOLD: 03/24/2020 [facility] 10 mEq 03/14/2020 12:00:00 AM EDT tablet,ER particles/cry stals 270 TAKE ONE TABLET BY MOUTH THREE TIMES A DAY DIRECTED TAKE ONE TABLET BY MOUTH THREE TIMES A DAY DIRECTED SOLD: 06/14/2020 [facility] Lovastatin 10 MG Oral Tablet LOVASTATIN 02/13/2020 12:00:00 AM EDT tab let 90 TAKE ONE TABLET BY MOUTH EVERY DAY WITH A MEAL TAKE ONE TABLET BY MOUTH EVERY DAY WITH A MEAL SOLD: 05/17/2020 [facility] 500-50 mcg/dose 01/20/2020 12:00:00 AM EDT blister with alley ce 180 INHALE ONE PUFF BY MOUTH TWICE A DAY INHALE ONE PUFF BY MOUTH TWICE A DAY SOLD: 04/19/2020 [facility] 100 mg 01/18/2020 12:00:00 AM EDT tablet 90 TAKE ONE TABLET BY MOUTH EVERY DAY TAKE ONE TABLET BY MOUTH EVERY DAY SOLD: 04/19/2020 [facility] 20 mg 01/18/2020 12:00:00 AM EDT tablet 270 TAKE ONE TABLET BY MOUTH THREE TIMES A DAY TAKE ONE TABLET BY MOUTH THREE TIMES A DAY SOLD: 04/19/2020 [facility] 18 mcg 01/18/2020 12:00:00 AM EDT capsule, w/inhalation d evice 90 INHALE THE CONTENTS OF ONE CAPSULE VIA HANDIHALER BY MOUTH EVERY DAY INHALE THE CONTENTS OF ONE CAPSULE VIA HANDIHALER BY MOUTH EVERY DAY SOLD: 04/19/2020 [facility] 24 HR Diltiazem Hydrochloride 300 MG Extended Release Oral Capsule DILTIAZEM HCL 12/30/2019 12:00:00 AM EDT capsule,extended release 24hr 90 TAKE ONE CAPSULE BY MOUTH EVERY DAY TAKE ONE CAPSULE BY MOUTH EVERY DAY SOLD: 03/24/2020 [facility] 50 mcg/actuation 07/03/2019 12:00:00 AM EST spray,suspension 48 SPRAY ONE SPRAY IN EACH NOSTRIL TWICE A DAY SPRAY ONE SPRAY IN EACH NOSTRIL TWICE A DAY SOLD: 03/30/2020 [facility] 100,000 unit/gram 04/17/2019 12:00:00 AM EDT powder 60 APPLY TOPICALLY TO AFFECTED AREA TWO TIMES A DAY NEEDED APPLY TOPICALLY TO AFFECTED AREA TWO TIMES A DAY NEEDED SOLD: 04/19/2020 [facility] Insurance Providers Payer name Policy type / Coverage type Policy ID Covered libertarian ID Covered libertarian's relationship to busby Policy Busby Plan Information MEDICARE BLUE PPO 306 [id number] SP [id number] BS [facility] Part B [id number] Self [id number] BS [place] Med[place] Part B [id number] Self [id number] Blue Shield MCR Advantage Medigap Part B [id number] Self [id number] Blue Shield MCR Advantage Medigap Part B [id number] Self [id number] MEDICARE BLUE PPO EXCELLUS BC [id number] SP [id number] Blue Shield MCR Advantage Commercial [id number] Self [id number] MEDICARE BLUE PPO EXCELLUS BC [id number] SP [id number] Medicare Blue Ppo Commercial [id number] Self [id number] EXCELLUS BC MEDICARE [id number] Melissa [id number] MEDICARE BLUE PPO [id number] SP [id number] MEDICARE BLUE PPO EXCELLUS BC [id number] SP [id number] SELF PAY MEDICARE BLUE PPO EXCELLUS BC [id number] SP [id number] SELF PAY SELF PAY MEDICARE BLUE PPO EXCELLUS BC [id number] SP [id number] ANSI-Medicare Part B [id number] ANSI-Medicare Part B [id number] MEDICARE BLUE PPO 306 [id number] SP [id number] MEDICARE BLUE PPO 306 [id number] SP [id number] ANSI-Medicare Part B [id number] ANSI-Medicare Part B [id number] ANSI-Medicare Part B [id number] ANSI-Medicare Part B [id number] ANSI-Medicare Part B [id number] ANSI-Medicare Part B [id number] ID IDENTIFICATION [id number] Other Insurance [id number] [employer] Blue Cross [id number] Blue Cross/Nicole eld [id number] Medicare Blue Ppo Commercial [id number] Self [id number] EXCELLUS BCBS B [id number] S [id number] MEDICARE BLUE PPO 306 [id number] SP [id number] EXCELLUS BC-BS PPO 306 [id number] SP [id number] MEDICARE BLUE PPO 306 [id number] SP [id number] MEDICARE BLUE PPO P [id number] S [id number] BLUE CROSS BLUE SHIELD MCR -OP [id number] ANSI-Medicare Part B [id number] ANSI-Medicare Part B [id number] Problems, Conditions, and Diagnoses Code Display Name Description Problem Type Effective Dates Data Source(s) G47.33 Obstructive sleep apnea (adult) (pediatr ic) Obstructive sleep apnea (adult) (pediatr Diagnosis 12/15/2020 10:27:52 AM EDT [facility] R60.9 Edema, unspecified Edema, unspecified Diagnosis 09/2020 10:27:52 AM EDT [facility] I10 Essential (primary) hypertension Essential (primary) h ypertension Diagnosis 12/15/2020 10:27:52 AM EDT [facility] E78.5 Hyperlipidemia, unspecified Hyperlipidemia, unspecifie d Diagnosis 12/15/2020 10:27:52 AM EDT [facility] R94.31 Abnormal electrocardiogram [ECG] [EKG] A bnormal electrocardiogram (ECG) (EKG) Diagnosis 12/15/2020 10:27:52 AM EDT [facility] Z85.828 [id number] History of basal cell carcinoma Problem 04/13/2021 12:00:00 AM EDT eCW1 ([facility]) [id number] Essential hypertension Essential hypertension Problem 01/17/2021 12:00:00 AM EDT [facility] ([facility] ) [id number] Pure hypercholesterolemia Pure hypercholesterolemia Pr oblem 01/17/2021 12:00:00 AM EDT [facility] ([facility] ) K59.01 [id number] Slow transit constipation Problem 10/06/2020 12:00:00 AM EDT eCW1 ([facility]) R53.82 [id number] Chronic fatigue Problem 10/06/2020 12:00:00 AM EDT eCW1 ([facility]) 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 0 08/25/2020 12:00:00 AM EST [facility] ([facility], ) I50.33 [id number] Acute on chronic diastolic (congestive) h eart failure Problem 04/29/2020 12:00:00 AM EDT eCW1 ([facility]) Surgeries/Procedures Procedure Description Date Indications Data Source(s) Colonoscopy W/ Poly 03/13/2021 12:00:00 AM EDT [facility] ([facility]) Spirometry 02/23/2021 12:00:00 AM EDT M [facility]ENT ([facility]) OFFICE OUTPATIENT VISIT 25 MINUTES 02/23/2021 12:00:00 AM EDT [facility] ([facility]) OFFICE OUTPATIENT NEW 30 MINUTES 02/20/2021 12:00:00 A M EDT [facility] ([facility]) RADIOLOGIC EXAMINATION KNEE 3 VIEWS 01/11/2021 12:00:0 0 AM EDT [facility] ([facility]) OFFICE OUTPATIENT VISIT 15 MINUTES 01/11/2021 12:00:00 AM EDT [facility] ([facility]) Spirometry 08/25/2020 12:00:00 AM EST M [facility]ENT ([facility]) OFFICE OUTPATIENT VISIT 15 MINUTES 08/25/2020 12:00:00 AM EST [facility] ([facility]) Results ID Date Data Source [id number] 03/13/2021 10:11:00 AM EDT [facility] ([facility]) Name Value Range Interpretation Code Description Data Dinorah rce(s) Supporting Document(s) Surgical pathology study Laboratory test [facility]) FINAL DIAGNOSIS Colon, polyp, polypectomy: Fecal material only. 03/14/2021 - 1340 CLINICAL DIAGNOSIS History colon polyps 03/13/2021 - 1507 GROSS DIAGNOSIS Received in formalin labeled "colon polyp" consists of multiple fragments, including possible tissue and fecal material measuring 0.4 x 0.4 x 0.2 cm in aggregate. All in one.. -SV 03/13/2021 - 1507 Signed KIET WEIR MD 03/14/2021 1340 ID Date Data Source [id number] 02/23/2021 10:59:00 AM EDT [facility] ([facility]) Name Value Range Interpretation Code Description Data Dinorah rce(s) Supporting Document(s) FVC-Pred 3.52 L [facility] ([facility], ) PDFReport Laboratory test result [facility] ([facility]) FVC-%Pred-Pre 89 L [facility] ([facility]) FVC-Pre 3.13 L [facility] ([facility]) FVC-LLN 2.62 L [facility] ([facility]) Fev1-Pre 1.99 L [facility] ([facility]) Fev1-Pred 2.43 L [facility] ([facility]) Fev1-%Pred-Pre 81 L [facility] ([facility]) Fev1-LLN 1.67 L [facility] ([facility]) Fev6-Pre 3.13 L [facility] ([facility]) Fev6-Pred 3.24 L [facility] ([facility]) Fev6-LLN 2.37 L [facility] ([facility]) Fev6-%Pred-Pre 96 L [facility] ([facility]) Xgj0yvp-Lwg 63 % [facility] ([facility]) Nxe8dtk-Btif 70 % [facility] ([facility]) Rbl8taj-Qcwf 92 % [facility] ([facility]) Gbd6zrk-%Pred-Pre 90 % [facility] ([facility]) Vkf5gre-BHX 61 % [facility] ([facility]) Kdx8kkw-%Pred-Pre 108 % [facility] ([facility] ) Xyc5yec-Uol 100 % [facility] ([facility]) FEFMax-Pred 6.10 L/E/sec [facility] ([facility]) FEFMax-Pre 5.81 L/E/sec [facility] ([facility]) FEFMax-LLN 3.88 L/E/sec [facility] ([facility]) FEFMax-%Pred-Pre 95 L/E/sec [facility] ([facility]) Mnt4447-Xnao 1.54 L/E/sec [facility] ([facility]) Xfs2357-Ndf 1.11 L/E/sec [facility] ([facility]) Zle6539-%Pred-Pre 71 L/E/sec [facility] ([facility]) Xiq7655-RHB 0.00 L/E/sec [facility] ([facility]) ExpTime-Pre 4.87 sec [facility] ([facility]) App6mga8-Hxan 75 % [facility] ([facility]) Zff0vkt0-%Pred-Pre 84 % [facility] ([facility]) Bmd6wtd8-Low 63 % [facility] ([facility]) Ple7ltj8-QHL 66 % [facility] ([facility]) ID Date Data Source [id number] 11/16/2020 03:42:00 PM EDT [facility] ([facility]) LUMBAR SPINE RADIOGRAPHS INDICATION: LB P. NO TRAUMA. R/O DEGENERATIVE CHANGES TECHNIQUE: Frontal, oblique and lateral views of the lumbar spine were obtained. COMPARISON: None. FINDINGS: There is sacralization of L5. There is multilevel intervertebral disc space narrowing. Vertebral body heights are relatively well-maintained. There is multilevel anterior osteophyte formation, most pronounced at L4-L5. There is multilevel facet arthropathy, most pronounced at L4-L5. Vascular calcifications are present. IMPRESSION: Of the visualized spine, there is no radiographic evidence for fracture or subluxation. Moderate multilevel degenerative changes. Professional interpretation performed by [facility] . Name Value Range Interpretation Code Description Data Dinorah rce(s) Supporting Document(s) ID Date Data Source [id number] 08/25/2020 01:48:00 PM EST [facility] ([facility], ) Name Value Range Interpretation Code Description Data [facility] rce(s) Supporting Document(s) PDFReport Laboratory test result [facility] ([facility], ) FVC-Pre 3.03 L [facility] ([facility]) FVC-Pred 3.56 L [facility] ([facility]) FVC-%Pred-Pre 84 L [facility] ([facility], ) Fev1-Pred 2.47 L [facility] ([facility]) FVC-LLN 2.67 L [facility] ([facility]) Fev1-%Pred-Pre 83 L [facility] ([facility]) Fev1-LLN 1.71 L [facility] ([facility]) Fev1-Pre 2.07 L [facility] ([facility]) Fev6-Pre 3.03 L [facility] ([facility]) Fev6-Pred 3.29 L [facility] ([facility]) Fev6-%Pred-Pre 91 L [facility] ([facility]) Fev6-LLN 2.42 L [facility] ([facility]) Azh9fsr-Dgdn 71 % [facility] ([facility]) Ddg9zew-Wrm 68 % [facility] ([facility]) Ozl7ufg-%Pred-Pre 97 % [facility] ([facility]) Ibq1xki-AYD 61 % [facility] ([facility]) Kga5yzt-Xusb 92 % [facility] ([facility]) Vpt1xvr-Mcb 100 % [facility] ([facility]) Ugb1lxx-%Pred-Pre 108 % [facility] ([facility]) FEFMax-Pred 6.24 L/E/sec [facility] ([facility]) FEFMax-%Pred-Pre 85 L/E/sec [facility] ([facility]) FEFMax-Pre 5.33 L/E/sec [facility] ([facility]) Pmy9782-Teb 1.28 L/E/sec [facility] ([facility]) FEFMax-LLN 4.02 L/E/sec [facility] ([facility]) Vvd1845-Ukuf 1.59 L/E/sec [facility] ([facility]) Dec6725-ELC 0.05 L/E/sec [facility] ([facility]) Vtv6121-%Pred-Pre 80 L/E/sec [facility] ([facility]) Cbg2tpj9-Uhmu 76 % [facility] ([facility]) ExpTime-Pre 4.91 sec [facility] ([facility]) Uwr1nxo2-%Pred-Pre 90 % [facility] ([facility]) Dyp6cbp8-Ajb 68 % [facility] ([facility]) Mvb1ipl0-EME 67 % [facility] ([facility]) ID Date Data Source [id number] 05/19/2020 08:57:25 AM EST [facility] Name Value Range Interpretation Code Description Data Dinorah rce(s) Supporting Document(s) &PDF [facility] LHYXFm4jPgSIRgIn99/BZBaxJUUph3HvAMqqMGa4MFhoJLXmZ9BoiUmnZQNVCNXZZTeFPBWVXTEvTRDp FcG [file] DIMFAITLIQPGVLSFZZCYNSanmfvN5zvGIjLGXHdhcS rTDcQvkKkA+8XdupSqrbnSaA3b96Nt6F/vqNfKAkGxVKMGNSTEcd9O4+1x9dT4mWSr+HtTrzQkAk3MSV Eqpc/9ZhzrDh6EA0QyWVFwgAB9gOGILaTxOG/42NgLi930Zp5rmGpoRlpjCd/eD5BeXNCRUQGLTBKHMY NLZORMRFEJFKCZXYBKEWBWECDKPrHy1RDxbSdwScPn xuA1A9NdUQuB725o4XFf4LHFEW+OlF7+cI9yRJnMLOfb8sCwm9vDzimydc7JiMMCo9ORP583E63F1RjE hbEcV+v4/j1djIbgd62/gOMh0qTvbb3soyM9DECJ9Mo24FTGtJ3K5yp/sijSousvqYQCsvCj11+cUsiT qhpWqxJKWe3yB1ez75by0HKhMLqISb8TChmP4I/m57 xKZwWJfG5nJ/MIWZI64LbI90pWmcxhtk89xYnhwnUmFQMgQW9XATkWWIdEveipqEzgR+5kbrhZ493dPK Uru6oQOR7/qPEh46iKY5h4mhQwQRSBQupOuntqRwIFh6eIjuZESkS+pbvIulRCUy5ktEaSJ7aXoIgiTn deFC1a2jJJUlGykFp9l7/CjX/5RduB/LpJDbEWFB4q vp public relations/WtFDy7G269wPw7xc6Lu0VFSoenh1m9tGBbihf9g8Ef0mCE4GHwPhhPHZtxQZm4tQSkdb5bd64LXP1 [file] Z4gMhIR0V3qxxQGqgkPXMm4IQg+wE38isyla0Qv3I9bzfxemlh6LPqks4oI2n5/Jz/computer forensics examiner+MLkOMPtHZ6p [file] ICAgICAgICAgICAgICAgICAgICAgICAgICAgICAgICAgICAgICAgICAgICAgICAgICAgICAgICAgICAg ICAgICAgICAgICAgICAgICAgICAgICAgDQogICAgIC AgICAgICAgICAgICAgICAgICAgICAgICAgICAgICAgICAgICAgICAgICAgICAgICAgICAgICAgICAgIC AgICAgICAgICAgICAgICAgICAgICAgICAgICAgICAgICAgDQogICAgICAgICAgICAgICAgICAgICAgIC AgICAgICAgICAgICAgICAgICAgICAgICAgICAgICAg ICAgICAgICAgICAgICAgICAgICAgICAgICAgICAgICAgICAgICAgICAgICAgDQogICAgICAgICAgICAg ICAgICAgICAgICAgICAgICAgICAgICAgICAgICAgICAgICAgICAgICAgICAgICAgICAgICAgICAgICAg ICAgICAgICAgICAgICAgICAgICAgICAgICAgDQogIC AgICAgICAgICAgICAgICAgICAgICAgICAgICAgICAgICAgICAgICAgICAgICAgICAgICAgICAgICAgIC AgICAgICAgICAgICAgICAgICAgICAgICAgICAgICAgICAgICAgDQogICAgICAgICAgICAgICAgICAgIC AgICAgICAgICAgICAgICAgICAgICAgICAgICAgICAg ICAgICAgICAgICAgICAgICAgICAgICAgICAgICAgICAgICAgICAgICAgICAgICAgDQogICAgICAgICAg ICAgICAgICAgICAgICAgICAgICAgICAgICAgICAgICAgICAgICAgICAgICAgICAgICAgICAgICAgICAg ICAgICAgICAgICAgICAgICAgICAgICAgICAgICAgDQ ogICAgICAgICAgICAgICAgICAgICAgICAgICAgICAgICAgICAgICAgICAgICAgICAgICAgICAgICAgIC AgICAgICAgICAgICAgICAgICAgICAgICAgICAgICAgICAgICAgICAgDQogICAgICAgICAgICAgICAgIC AgICAgICAgICAgICAgICAgICAgICAgICAgICAgICAg ICAgICAgICAgICAgICAgICAgICAgICAgICAgICAgICAgICAgICAgICAgICAgICAgICAgDQogICAgICAg ICAgICAgICAgICAgICAgICAgICAgICAgICAgICAgICAgICAgICAgICAgICAgICAgICAgICAgICAgICAg ICAgICAgICAgICAgICAgICAgICAgICAgICAgICAgIC QhKBs9O9pzBKRzQQBoLX9bHVa1Cd5+AFdVNcZpLMN3ccTobG5AXE2bi9SsEMccVVFae8IhZGg9WQ5OOR ZmGJrzUI7FTVdggi8FRPFfHVVcgDUXt0oeXbIjGEQ3XIXbNqlgMA4CPZCjP3hpqvNePAUkLFLFPNhbNK VLZY7NQrKiD8LexN11DWTYHd7+DQplbmRvYmoNCjQw WBHdb2NiPAk6WB4ZUQYhIFsfNK8UDYLwnM7cFQsfCX2OMzYdOKVxJMSKIgUlU80qcFWhSZg7I2CrFiSo ZGVkRmlsZXMgPDwvTmFtZXMgWyBdDQogID4+ID4+WKnpKB1VSZgnngHuYNUfLs5YTAOfZQN4RONlyXYw KctiPIZWILieUH4SuVRrFGA8fM6oMVnbMKRhWNUkR0 bJBnEugPiaCS02vKpflqQadGEhSDn+Sd1TCE6im7GxYSq1woCxKQmaQQZiXMokDTVbYTYtGCHfCFO9YI J3QXFFFbEwWQGoJLQyLSroXRMpNXPpcw3GDOMiAWM9JbT3MPVyXHVtKVEuNYzvZTGsFEG1OpdrFGQxPZ GtNT8WIuFoZQEzTNJtEWVgKZWbWLSedo2TCQOkNCLc NkW1WwQkPIVhFFPrXTnhXDSfREGaCOv3VTHjBUUnGY4IXbKoUKLmQHAhIWjsLGZfVVKrxs3WUPTcPAAf WCJ9XfVrBAUkJQRvJCthXGZyJAJ8RCCqWHZhEBBdVH5WTbVaKGKmPGJ8CNmdQHBiOLTqtt0LWNNaIYWx Xvt9ZWDvDCZzLVFsFSlmSCEaOKJ0TsN8XGVsBJYpKU 5QZdNxQHWxETq6VWtgPZVzLLRiav9AUKFyGTXnPSX3ZdVwTUCnQUCiPDxiAUZcJGAaLRNeBNNpBVEcFA 2ZFnMbNJYcDEFhDmLyRFPiMVYtlj7FDKWcUHAzQbUaHlKhCOQkTGIkIRqfXLJqOHQvFkwzRHLyCJUeJI 5WLhJcZHLcSKS7ZFvxEPUfZVHcxu4MIUPfRHZnPNo1 YKIrJRXlVLCrCPwaUMViBAH2BMK6BWZcAADxBL4DOeTmGDXmANOzIRqmCISzCJSrix4ZSRXpFFQrOSsi OfHyVSHnTYGeRNywBJZxLWIlETRnRRZxGMCpDI1LIwDhKTCaAbGhJOQhTKYkBGIzjo3QWBIjRZToIgwf BJAqIKLvTTRsKSkiUZOxUSOmTKW9EAXyLDQnUM5PHx IsNERtKkLlKtXxKPLhYPEqcf4DLTJdMHJxCdA2OZLgTKJvGGAqENcbLSRdVSP2Gti9ANYmQIIuUH0STa QaKESaONG5DFKpKCAiCZNlfv0CMTInZAP4Fuo5HGHsTKCyROEmFOxjEZWqYJO8Yzg4OBNaVVZcFT5NJm KpXJQsMBAyWCYgMOLiAFRngi6MQSFjTAP0QxB4RhMb TXRqLLVlYQkfSYGwLGU0PDreOEMaDRAtZP2VQqRoFPWoScAvGJJmAPPtYQBgwe6TFCCxUWY3AjKgCyXo UNNnKTNgXNtuBVAdIMX2MSYdITGpBZQrMY7QNrOpVZIfJrw1YyLsGWUeWUUtwl7PcLDteNzmve0FBWjP Gc8CkYyqFWFcAXizSk3tvSU1RZKgKAHLTy8EsjGwEU NrBJBIJMrvAXNfPPGxRqLoMvEnOlWxRXThXFqeSgT2QAO5AZUkCTIqUGTzMgD6CQD5MNIkK3U6ZfR3Hv N3IDB4JYPmNmzbAJSwArU3BdM+GT7mWDb+Rx5Ec3VrmmR5nqHgFMo7BMH3Fv1LFVQWN6FRBt== ID Date Data Source RENAL PROFILE 05/16/2020 10:26:36 AM EST eCW1 ([facility]) Name Value Range Interpretation Code Description Data Dinorah rce(s) Supporting Document(s) 35 BLOOD UREA NITROGEN eCW1 (Counts include 234 beds at the [facility]) 48.5 GLOMERULAR FILTRATION RATE eCW 1 ([facility]) 132 GLUCOSE, FASTING eCW1 ([facility]) 1.47 CREATININE FOR GFR eCW1 ([facility]) 4.2 POTASSIUM SERUM eCW1 ([facility]) 31 CARBON DIOXIDE LEVEL eCW1 ([facility]) 139 SODIUM LEVEL eCW1 ([facility]) 101 CHLORIDE LEVEL eCW1 ([facility]) 2.3 PHOSPHORUS LEVEL eCW1 ([facility]) 3.8 ALBUMIN eCW1 ([facility]) 9.3 CALCIUM LEVEL eCW1 ([facility]) ID Date Data Source NT-PRO BNP 05/16/2020 10:26:36 AM EST eCW1 ([facility]) Name Value Range Interpretation Code Description Data Dinorah rce(s) Supporting Document(s) 444 NT-PRO BNP eCW1 ([facility]) Procedure Social History Code Duration Value Status Description Data Source(s ) Smoking 08/25/2020 12:00:00 AM EST Patient is a former smoker completed Patient is a former smoker MEDENT ([facility]) Vital Signs ID Date Data Source UNK Name Value Range Interpretation Code Description Data Source(s) Diastolic blood pressure 74 mm[Hg] 74 mm[Hg] eCW1 ([facility]) Body weight 197.4 [lb_av] 197.4 [lb_av] eCW1 ([facility]) Body height 68 [in_i] 68 [in_i] eCW1 ([facility]) Body mass index (BMI) [Ratio] 30.01 kg/m2 30.01 kg/m2 eCW1 ([facility]) Systolic blood pressure 132 mm[Hg] 132 mm[Hg] e CW1 ([facility]) Diastolic blood pressure 60 mm[Hg] 60 mm[Hg] MEDENT ([facility], ) Heart rate 100 /min 100 /min [facility] ([facility], ) Systolic blood pressure 130 mm[Hg] 130 mm[Hg] [facility] Oxygen saturation in Arterial blood by Pulse oximetry 92 % 92 % [facility] ([facility]) Body height 68.5 [in_i] 68.5 [in_i] [facility] ([facility], ) 5'8.50" Body weight 198.00 [lb_av] 198.00 [lb_av] MEDEN T ([facility], ) Body mass index (BMI) [Ratio] 29.7 kg/m2 29.7 k g/m2 [facility] ([facility]) [place] body weight 154 [lb_av] 154 [lb_av] MEDEN T ([facility]) Body weight 89.813 kg 89.813 kg [facility] ([facility]) Body surface area Derived from formula 2.05 m2 2.05 m2 [facility] ([facility]) Body height 68.5 [in_i] 68.5 [in_i] [facility] 5'8.50" [place] body weight 154 [lb_av] 154 [lb_av] MEDEN T ([facility]) Systolic blood pressure 134 mm[Hg] 134 mm[Hg] M EDENT ([facility], ) Diastolic blood pressure 58 mm[Hg] 58 mm[Hg] [facility] ([facility]) Body temperature 98.5 [degF] 98.5 [degF] MEDENT ([facility]) Body weight 197.12 [lb_av] 197.12 [lb_av] MEDEN T ([facility]) Body mass index (BMI) [Ratio] 29.5 kg/m2 29.5 k g/m2 [facility] ([facility]) Body weight 89.416 kg 89.416 kg [facility] ([facility]) Body surface area Derived from formula 2.04 m2 2.04 m2 [facility] ([facility]) Body weight 198 [lb_av] 198 [lb_av] eCW1 ([facility]) Body height 68 [in_i] 68 [in_i] eCW1 ([facility]) Body mass index (BMI) [Ratio] 30.10 kg/m2 30.10 kg/m2 eCW1 ([facility]) Heart rate 44 /min 44 /min eCW1 ([facility]) Respiratory rate 18 /min 18 /min eCW1 ([facility]) Body temperature 98.2 [degF] 98.2 [degF] eCW1 ( [facility]) Systolic blood pressure 136 mm[Hg] 136 mm[Hg] e CW1 ([facility]) Diastolic blood pressure 58 mm[Hg] 58 mm[Hg] eCW1 ([facility]) Body weight 202 [lb_av] 202 [lb_av] eCW1 ([facility]) Body height 68 [in_i] 68 [in_i] eCW1 ([facility]) Body mass index (BMI) [Ratio] 30.71 kg/m2 30.71 kg/m2 eCW1 ([facility]) Heart rate 41 /min 41 /min eCW1 ([facility]) Respiratory rate 18 /min 18 /min eCW1 ([facility]) Body temperature 97.7 [degF] 97.7 [degF] eCW1 ( [facility]) Systolic blood pressure 152 mm[Hg] 152 mm[Hg] e CW1 ([facility]) Diastolic blood pressure 70 mm[Hg] 70 mm[Hg] eCW1 ([facility]) Oxygen saturation in Arterial blood by Pulse oximetry 96 % 96 % [facility] ([facility]) Body height 68.5 [in_i] 68.5 [in_i] [facility] ([facility]) 5'8.50" Body weight 201.00 [lb_av] 201.00 [lb_av] MEDEN T ([facility]) Body mass index (BMI) [Ratio] 30.1 kg/m2 30.1 k g/m2 [facility] ([facility]) [place] body weight 154 [lb_av] 154 [lb_av] MEDEN T ([facility]) Body weight 91.174 kg 91.174 kg [facility] ([facility]) Body surface area Derived from formula 2.06 m2 2.06 m2 [facility] ([facility]) Systolic blood pressure 150 mm[Hg] 150 mm[Hg] M EDENT ([facility]) Diastolic blood pressure 90 mm[Hg] 90 mm[Hg] [facility] ([facility]) Heart rate 58 /min 58 /min [facility] ([facility]) Oxygen saturation in Arterial blood by Pulse oximetry 96 % 96 % [facility] ([facility]) Body height 68.5 [in_i] 68.5 [in_i] [facility] ([facility]) 5'8.50" Body weight 201.00 [lb_av] 201.00 [lb_av] MEDEN T ([facility]) Body mass index (BMI) [Ratio] 30.1 kg/m2 30.1 k g/m2 [facility] ([facility]) [place] body weight 154 [lb_av] 154 [lb_av] MEDEN T ([facility]) Body weight 91.174 kg 91.174 kg [facility] ([facility]) Body surface area Derived from formula 2.06 m2 2.06 m2 [facility] ([facility]) Body weight 200 [lb_av] 200 [lb_av] eCW1 ([facility]) Body height 68 [in_i] 68 [in_i] eCW1 ([facility]) Body mass index (BMI) [Ratio] 30.41 kg/m2 30.41 kg/m2 eCW1 ([facility]) Heart rate 60 /min 60 /min eCW1 ([facility]) Respiratory rate 18 /min 18 /min eCW1 ([facility]) Body temperature 96.9 [degF] 96.9 [degF] eCW1 ( [facility]) Systolic blood pressure 142 mm[Hg] 142 mm[Hg] e CW1 ([facility]) Diastolic blood pressure 64 mm[Hg] 64 mm[Hg] eCW1 ([facility]) Body weight 200 [lb_av] 200 [lb_av] eCW1 ([facility]) Body height 68 [in_i] 68 [in_i] eCW1 ([facility]) Body mass index (BMI) [Ratio] 30.41 kg/m2 30.41 kg/m2 eCW1 ([facility]) Heart rate 60 /min 60 /min eCW1 ([facility]) Respiratory rate 18 /min 18 /min eCW1 ([facility]) Body temperature 96.9 [degF] 96.9 [degF] eCW1 ( [facility]) Systolic blood pressure 128 mm[Hg] 128 mm[Hg] e CW1 ([facility]) Diastolic blood pressure 74 mm[Hg] 74 mm[Hg] eCW1 ([facility]) Body weight 198.2 [lb_av] 198.2 [lb_av] eCW1 ([facility]) Body height 68 [in_i] 68 [in_i] eCW1 ([facility]) Body mass index (BMI) [Ratio] 30.13 kg/m2 30.13 kg/m2 eCW1 ([facility]) Heart rate 60 /min 60 /min eCW1 ([facility]) Respiratory rate 18 /min 18 /min eCW1 ([facility]) Body temperature 97.8 [degF] 97.8 [degF] eCW1 ( [facility]) Systolic blood pressure 120 mm[Hg] 120 mm[Hg] e CW1 ([facility]) Diastolic blood pressure 82 mm[Hg] 82 mm[Hg] eCW1 ([facility]) Body weight 205 [lb_av] 205 [lb_av] eCW1 ([facility]) Body height 68 [in_i] 68 [in_i] eCW1 ([facility]) Body mass index (BMI) [Ratio] 31.17 kg/m2 31.17 kg/m2 eCW1 ([facility]) Heart rate 58 /min 58 /min eCW1 ([facility]) Respiratory rate 18 /min 18 /min eCW1 ([facility]) Body temperature 97.9 [degF] 97.9 [degF] eCW1 ( [facility]) Systolic blood pressure 164 mm[Hg] 164 mm[Hg] e CW1 ([facility]) Diastolic blood pressure 64 mm[Hg] 64 mm[Hg] eCW1 ([facility]) Body mass index (BMI) [Ratio] 31.74 kg/m2 31.74 kg/m2 W1 ([facility]) Body weight 208.8 [lb_av] 208.8 [lb_av] eCW1 ([facility]) Body height 68 [in_i] 68 [in_i] eCW1 ([facility])
--- NOTE | 2021-05-24 17:53 | REPVR ---
PROCEDURE INFORMATION: Exam: CT Head Without Contrast Exam date and time: 05/24/2021 5:40 PM Age: 85 years old Clinical indication: Injury or trauma; Fall; Blunt trauma (contusions or hematomas); Additional info: Fall on aspirin TECHNIQUE: Imaging protocol: Computed tomography of the head without contrast. Radiation optimization: All CT scans at this facility use at least one of these dose optimization techniques: automated exposure control; mA and/or kV adjustment per patient size (includes targeted exams where dose is matched to clinical indication); or iterative reconstruction. COMPARISON: No relevant prior studies available. FINDINGS: Brain: There is no acute intracranial hemorrhage, cerebral edema, or midline shift. Chronic microvascular ischemic changes are seen in the periventricular white matter. Age-related cerebral and cerebellar volume loss is present. Cerebral ventricles: No hydrocephalus. Paranasal sinuses: There is no acute sinusitis. Mastoid air cells: The left mastoid air cells are clear. Minor fluid is noted in the right mastoid air cells. Orbital cavity: The included orbital structures are unremarkable. Vasculature: Atherosclerotic calcifications are seen involving the cavernous carotid arteries. Bones/joints: No acute fracture. Soft tissues: A right parietal scalp laceration is present. IMPRESSION: 1. No acute intracranial abnormality. 2. 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 Electronically signed by: Sean Eugene On 05/24/2021 17:52:55 PM
--- OUTSIDE RECORDS SUMMARY | 2021-05-24 20:40 | CCD ---
Author Author [facility] Organization [facility] Address Unknown Phone Unavailable Care Team Providers Care Bereavement Coordinator Name Role Phone Gina Isabel MD, [facility] Unavailable Unavailable Gabris, Gina Cheng MD, [facility] Unavailable Unavailable Gabris, Gina Cheng MD, [facility] Unavailable Unavailable Gabris, Gina Cheng MD, [facility] Unavailable Unavailable Gabris, Gina Cheng MD, [facility] Unavailable Unavailable Gabris, Gina Cheng MD, [facility] Unavailable Unavailable Gabris, Gina Cheng MD, [facility] Unavailable Unavailable Gabris, Gina Cheng MD, [facility] Unavailable Unavailable Gabris, Gina Cheng MD, [facility] Unavailable Unavailable Gabris, Gina Cheng MD, [facility] Unavailable Unavailable Gabris, Gina Cheng MD, [facility] Unavailable Unavailable Gabris, Gina Cheng MD, [facility] Unavailable Unavailable Gabris, Gina Cheng MD, [facility] Unavailable Unavailable Gabris, Gina Cheng MD, [facility] Unavailable Unavailable Gabris, Gina Cheng MD, [facility] Unavailable Unavailable Gabris, Gina Cheng MD, [facility] Unavailable Unavailable Gabris, Gina Cheng MD, [facility] Unavailable Unavailable Gabris, Gina Cheng MD, [facility] Unavailable Unavailable Gabris, Gina Cheng MD, [facility] Unavailable Unavailable Gabris, Gina Cheng MD, [facility] Unavailable Unavailable Gabris, Gina Cheng MD, [facility] Unavailable Unavailable Gabris, Gina Cheng MD, [facility] Unavailable Unavailable Gabris, Gina Cheng MD, [facility] Unavailable Unavailable Gabris, Gina Cheng MD, [facility] Unavailable Unavailable Gabris, Gina Cheng MD, [facility] Unavailable Unavailable Gabris, Gina Cheng MD, [facility] Unavailable Unavailable Gabris, Gina Cheng MD, [facility] Unavailable Unavailable Gabris, Gina Cheng MD, [facility] Unavailable Unavailable Gabris, Gina Cheng MD, [facility] Unavailable Unavailable Gabris, Gina Cheng MD, [facility] Unavailable Unavailable Gabris, Gina Cheng MD, [facility] Unavailable Unavailable Gabris, Gina Cheng MD, [facility] Unavailable Unavailable Gabris, Gina Cheng MD, [facility] Unavailable Unavailable Gabris, Gina Cheng MD, [facility] Unavailable Unavailable Gabris, Gina Cheng MD, [facility] Unavailable Unavailable Gabris, Gina Cheng MD, [facility] Unavailable Unavailable Gabris, Gina Cheng MD, [facility] Unavailable Unavailable Gabris, Gina Cheng MD, [facility] Unavailable Unavailable Gabris, Gina Cheng MD, [facility] Unavailable Unavailable Gabris, Gina Cheng MD, [facility] Unavailable Unavailable Gabris, Gina Cheng MD, [facility] Unavailable Unavailable Gabris, Gina Cheng MD, [facility] Unavailable Unavailable Gabris, Gina Cheng MD, [facility] Unavailable Unavailable Gabris, Gina Cheng MD, [facility] Unavailable Unavailable Gabris, Gina Cheng MD, [facility] Unavailable Unavailable Gabris, Gina Cheng MD, [facility] Unavailable Unavailable Gabris, Gina Cheng MD, [facility] Unavailable Unavailable Gabris, Gina Cheng MD, [facility] Unavailable Unavailable Gabris, Gina Cheng MD, [facility] Unavailable Unavailable Gabris, Gina Cheng MD, [facility] Unavailable Unavailable Gabris, Gina Cheng MD, [facility] Unavailable Unavailable Gabris, Gina Cheng MD, [facility] Unavailable Unavailable Gabris, Gina Cheng MD, [facility] Unavailable Unavailable Gabris, Gina Cheng MD, [facility] Unavailable Unavailable Gabris, Gina Cheng MD, [facility] Unavailable Unavailable Gabris, Gina Cheng MD, [facility] Unavailable Unavailable Gabris, Gina Cheng MD, [facility] Unavailable Unavailable Gabris, Gina Cheng MD, [facility] Unavailable Unavailable Gabris, Gina Cheng MD, [facility] Unavailable Unavailable Gabris, Gina Cheng MD, [facility] Unavailable Unavailable Gabris, Gina Cheng MD, [facility] Unavailable Unavailable Gabris, Gina Cheng MD, [facility] Unavailable Unavailable Gabris, Gina Cheng MD, [facility] Unavailable Unavailable Gabris, Gina Cheng MD, [facility] Unavailable Unavailable Gabris, Gina Cheng MD, [facility] Unavailable Unavailable Gabris, Gina Cheng MD, [facility] Unavailable Unavailable Gabris, Gina Cheng MD, [facility] Unavailable Unavailable Gabris, Gina Cheng MD, [facility] Unavailable Unavailable Gabris, Gina Cheng MD, [facility] Unavailable Unavailable Gabris, Gina Cheng MD, [facility] Unavailable Unavailable Gabris, Gina Cheng MD, [facility] Unavailable Unavailable Jennifer Flowers RN Unavailable Unavailable Jennifer Flowers RN Unavailable Unavailable Lionel Jennifer Arrieta RN Unavailable Unavailable RyneeJenniferJahaira RN Unavailable Unavailable JaradinceJenniferJahaira RN Unavailable Unavailable RyneeJenniferJahaira RN Unavailable Unavailable Rynee Jahaira RN Unavailable Unavailable Rynee Jennifer Arrieta RN Unavailable Unavailable Jaraddesie Jennifer Arrieta RN Unavailable Unavailable Rynee, Jennifer Arrieta RN Unavailable Unavailable RyneeJenniferJahaira RN Unavailable Unavailable Rynee Jennifer Arrieta RN Unavailable Unavailable RyneeJennifer RN Unavailable Unavailable Rynee Jennifer Arrieta RN Unavailable Unavailable Rynee Jennifer Arrieta RN Unavailable Unavailable Rolince, Jahaira RN Unavailable Unavailable RolinceJenniferJahaira RN Unavailable Unavailable Card, L Mary RPA [...] L Mary RPA Unavailable Unavailable Card, L Mray RPA Unavailable Unavailable Card, L Mary RPA Unavailable Unavailable Card, L Mary RPA Unavailable Unavailable Card, L Mary RPA Unavailable Unavailable Card, L Mary RPA Unavailable Unavailable Card, L Mary RPA Unavailable Unavailable Card, L Mary RPA Unavailable Unavailable Card, L Mary RPA Unavailable Unavailable Card, L Mary RPA Unavailable Unavailable Kerry Stanton MD Unavailable Unavailable Kerry Stanton MD Unavailable Unavailable Kerry Stanton MD Unavailable Unavailable Kerry Stanton MD Unavailable Unavailable Kerry Stanton MD Unavailable Unavailable Kerry Stanton MD Unavailable Unavailable Kerry Stanton MD Unavailable Unavailable Kerry Stanton MD Unavailable Unavailable Vaneenenaam, Kerry Funk MD [...] Unavailable Vaneenenaam, Kerry Funk MD Unavailable Unavailable Vaneendougam, Kerry Funk MD Unavailable Unavailable Vananaam, Kerry Funk MD Unavailable Unavailable Vaneendougam, Kerry Funk MD Unavailable Unavailable Vaneendougam, Kerry Funk MD Unavailable Unavailable Vaneenenaam, Kerry Funk MD Unavailable Unavailable Vaneenenaam, Kerry Funk MD Unavailable Unavailable Vaneenenaam, Kerry Funk MD Unavailable Unavailable Vaneendougam, Kerry Funk MD Unavailable Unavailable Vaneendougam, Kerry Funk MD Unavailable Unavailable Vaneendougam, Kerry Funk MD Unavailable Unavailable Vaneenenaam, Kerry Funk MD Unavailable Unavailable Vaneenenaam, Kerry Funk MD Unavailable Unavailable Vaneendougam, Kerry Funk MD Unavailable Unavailable Vaneenalondra, Kerry Funk MD Unavailable Unavailable Vaneendougam, Kerry Funk MD Unavailable Unavailable Vaneendougam, Kerry Funk MD Unavailable Unavailable Vaneenenaam, Kerry Funk MD Unavailable Unavailable Vaneenenaam, Kerry Funk MD Unavailable Unavailable Vaneenenaam, Kerry Funk MD Unavailable Unavailable Vananaam, Kerry Funk MD Unavailable Unavailable Samantha, M Manjula FREIGHT BRAKEMAN Unavailable Unavailable Samantha, M Manjula FREIGHT BRAKEMAN Unavailable Unavailable Samantha, M Manjula FREIGHT BRAKEMAN Unavailable Unavailable Samantha, M Manjula FREIGHT BRAKEMAN Unavailable Unavailable Samantha, M Manjula FREIGHT BRAKEMAN Unavailable Unavailable Samantha, M Manjula FREIGHT BRAKEMAN Unavailable Unavailable Samantha, M Manjula FREIGHT BRAKEMAN Unavailable Unavailable Samantha, M Manjula FREIGHT BRAKEMAN Unavailable Unavailable Samantha, M Manjula FREIGHT BRAKEMAN Unavailable Unavailable Samantha, M Manjula FREIGHT BRAKEMAN Unavailable Unavailable Samantha, M Manjula FREIGHT BRAKEMAN Unavailable Unavailable Samantha, M Manjula FREIGHT BRAKEMAN Unavailable Unavailable Samantha, M Manjula FREIGHT BRAKEMAN Unavailable Unavailable Samantha, M Manjula FREIGHT BRAKEMAN Unavailable Unavailable Samantha, M Manjula FREIGHT BRAKEMAN Unavailable Unavailable Samantha, M Manjula FREIGHT BRAKEMAN Unavailable Unavailable Samantha, M Manjula FREIGHT BRAKEMAN Unavailable Unavailable Samantha, M Manjula FREIGHT BRAKEMAN Unavailable Unavailable Samantha, M Manjula FREIGHT BRAKEMAN Unavailable Unavailable Samantha, M Manjula FREIGHT BRAKEMAN Unavailable Unavailable Samantha, M Manjula FREIGHT BRAKEMAN Unavailable Unavailable Samantha, M Manjula FREIGHT BRAKEMAN Unavailable Unavailable Samantha, M Manjula FREIGHT BRAKEMAN Unavailable Unavailable Samantha, M Manjula FREIGHT BRAKEMAN Unavailable Unavailable Samantha, M Manjula FREIGHT BRAKEMAN Unavailable Unavailable Samantha, M Manjula FREIGHT BRAKEMAN Unavailable Unavailable Samantha, M Manjula FREIGHT BRAKEMAN Unavailable Unavailable Samantha, M Manjula FREIGHT BRAKEMAN Unavailable Unavailable Samantha, M Manjula FREIGHT BRAKEMAN Unavailable Unavailable Samantha, M Manjula FREIGHT BRAKEMAN Unavailable Unavailable Samantha, M Manjula FREIGHT BRAKEMAN Unavailable Unavailable Samantha, M Manjula FREIGHT BRAKEMAN Unavailable Unavailable Samantha, M Manjula FREIGHT BRAKEMAN Unavailable Unavailable Samantha, M Manjula FREIGHT BRAKEMAN Unavailable Unavailable Samantha, M Manjula FREIGHT BRAKEMAN Unavailable Unavailable Samantha, M Manjula FREIGHT BRAKEMAN Unavailable Unavailable Samantha, M Manjula FREIGHT BRAKEMAN Unavailable Unavailable Samantha, M Manjula FREIGHT BRAKEMAN Unavailable Unavailable Samantha, M Manjula FREIGHT BRAKEMAN Unavailable Unavailable PATEL, M LAVON PA Unavailable [...] Unavailable PATEL, M LAVON PA Unavailable Unavailable Re-disclosure Warning The records that [...] is protected by Article 27-F of the [facility] Public Health law. If you continue you may have access to information: Regarding HIV / AIDS; Provided by facilities licensed or operated by the [facility] Office of Mental Health; or Provided by the [facility] Office for People With Developmental Disabilities. If such information is present, then the following [facility] mandated warning applies: This information [...] law may result in a fine or usp sentence or both. A general authorization for the release of medical or other information is NOT sufficient authorization for further disc losure. Family History Family Member Name Family Member Gender Family Member Status Date o f Status Description Data Source(s) Unknown Male Problem MEDENT ([facility]) Unknown Male Problem MEDENT ([facility] ) () Encounters Encounter Providers Location Date Indications Data Source(s ) [place] [address] [facility] [address] 05/02/2021 12:00:00 AM EDT eCW1 ([facility]) [place] [address] [facility] [address] 03/06/2021 12:00:00 AM EDT eCW1 ([facility]) Outpatient Attender: LAVON Rodriguez/Boling/Quique/Rein dl 02/23/2021 11:30:00 AM EDT MEDENT [facility] ) Outpatient Attender: Mary Rodriguez/Boling/Quique/R eindl 02/20/2021 11:30:00 AM EDT MEDENT ([facility], ) [place] [address] [facility] [address] 01/26/2021 12:00:00 AM EDT eCW1 ([facility]) OFFICE OUTPATIENT VISIT 15 MINUTES Attender: Kerry eric MD Physical Therapy 01/11/2021 10:45:00 AM EDT MEDENT ([facility] ) Outpatient Attender: Manjula BARRETT 12/27/2020 11:59: 00 PM EDT [facility], Outpatient Attender: Jennifer Flowers RNAttender: Prosper Isabel MD, [facility] [email or web address] 12/15/2020 10:27:52 AM EDT - 12/15/2020 11:29:35 AM EDT [facility] Outpatient 11/16/2020 03:14:22 PM EDT MEGHAN ([facility]) Office Visit, Est Pt., Level 4 PC [address] [place] [address] 10/06/2020 12:00:00 AM EDT eCW1 ([facility]) Outpatient Attender: LAVON Rodriguez/Boling/Quique/Rein dl 08/25/2020 01:00:00 PM EST MEDENT ([facility]) Office Visit, Est Pt., Level 4 PC [address] [place] [address] 07/19/2020 12:00:00 AM EST eCW1 ([facility]) Unknown [address] [facility] [address] 06/29/2020 12:00:00 AM EST eCW1 ([facility]) Unknown [address] [facility] [address] 06/29/2020 12:00:00 AM EST eCW1 ([facility]) Unknown [facility] [facility] [address] 06/20/2020 12:00:00 AM EST eCW1 ([facility]) Outpatient Attender: Prosper Isabel MD, [facility] [email or web address] 06/16/2020 12:00:00 AM EST - 06/16/2020 10:09:44 AM EST [facility] Outpatient Attender: Prosper Isabel MD, FACCReferre r: Prosper Isabel MD, [facility] [email or web address] 05/19/2020 07:58:30 AM [facility] Outpatient Attender: Prosper Isabel MD, FACCReferre r: Prosper Isabel MD, [facility] [email or web address] 05/19/2020 12:00:00 AM EST - 05/19/2020 09:18:05 AM [facility] TeleMedicine Phone E/M by Phys 11-[address] [place] [phone] 05/16/2020 12:00:00 AM EST eCW1 ([facility]) Office Visit, Est Pt., Level 4 PC [address] [place] [address] 05/13/2020 12:00:00 AM EDT eCW1 ([facility]) Unknown [address] [place] [phone] 05/13/2020 12:00:00 AM EDT eCW1 ([facility]) [place] [address] [facility] [address] 05/06/2020 12:00:00 AM EDT eCW1 ([facility]) Unknown [address] [facility] [address] 05/03/2020 12:00:00 AM EDT eCW1 ([facility]) [place]patient [address] [facility] [address] 05/02/2020 12:00:00 AM EDT eCW1 ([facility]) Office Visit, Est Pt., Level 3 PC [address] [place] [address] 04/29/2020 12:00:00 AM EDT eCW1 ([facility]) Unknown [address] [facility] [address] 04/28/2020 12:00:00 AM EDT eCW1 ([facility]) Office Visit, Est Pt., Level 4 PC [address] [place] [address] 04/25/2020 12:00:00 AM EDT eCW1 ([facility]) Immunizations Vaccine Date Status Description Data Source(s) COVID-19 VACCINE Moderna 04/03/2021 12:00:00 AM EDT completed [facility] Vaccine Series Complete: YESThis Data wa s Submitted to [facility] Via [employer]. COVID-19 dose #2 given elsewhere Unspecified 08/29/2020 02:0 1:00 PM EST completed eCW1 ([facility]) COVID-19 dose #2 given elsewhere Unspecified 08/29/2020 02:0 1:00 PM EST completed eCW1 ([facility]) COVID-19 dose #2 given elsewhere Unspecified 08/29/2020 02:0 1:00 PM EST completed eCW1 ([facility]) COVID-19 dose #2 given elsewhere Unspecified 08/29/2020 02:0 1:00 PM EST completed eCW1 ([facility]) COVID-19 VACCINE Moderna 08/29/2020 12:00:00 AM EST completed [facility] Vaccine Series Complete: YESThis Data wa s Submitted to [facility] Via [employer]. COVID-19 VACCINE, MRNA-1273, LNP-S (MODERNA)/PF 08/29/2020 1 2:00:00 AM EST completed [facility] COVID-19 dose #1 given elsewhere Unspecified 08/01/2020 02:0 1:00 PM EST completed eCW1 ([facility]) COVID-19 dose #1 given elsewhere Unspecified 08/01/2020 02:0 1:00 PM EST completed eCW1 ([facility]) COVID-19 dose #1 given elsewhere Unspecified 08/01/2020 02:0 1:00 PM EST completed eCW1 ([facility]) COVID-19 dose #1 given elsewhere Unspecified 08/01/2020 02:0 1:00 PM EST completed eCW1 ([facility]) COVID-19 VACCINE, MRNA-1273, LNP-S (MODERNA)/PF 08/01/2020 1 2:00:00 AM EST completed [facility] COVID-19 VACCINE Moderna 08/01/2020 12:00:00 AM EST completed [facility] Vaccine Series Complete: NOThis Data was Submitted to [facility] Via [employer]. New in 2011. IIV4 05/18/2020 12:56:00 PM EST completed MEDENT ([facility]) influenza, recombinant, quadrIvalent,injectable, prese rvative free 04/15/2020 12:08:00 PM EDT completed eCW1 ([facility]) influenza, recombinant, quadrIvalent,injectable, prese rvative free 04/15/2020 12:08:00 PM EDT completed eCW1 ([facility]) influenza, recombinant, quadrIvalent,injectable, prese rvative free 04/15/2020 12:08:00 PM EDT completed eCW1 ([facility]) influenza, recombinant, quadrIvalent,injectable, prese rvative free 04/15/2020 12:08:00 PM EDT completed eCW1 ([facility]) influenza, recombinant, quadrIvalent,injectable, prese rvative free 04/15/2020 12:08:00 PM EDT completed eCW1 ([facility]) influenza, recombinant, quadrIvalent,injectable, prese rvative free 04/15/2020 12:08:00 PM EDT completed eCW1 ([facility]) influenza, recombinant, quadrIvalent,injectable, prese rvative free 04/15/2020 12:08:00 PM EDT completed eCW1 ([facility]) influenza, recombinant, quadrIvalent,injectable, prese rvative free 04/15/2020 12:08:00 PM EDT completed eCW1 ([facility]) influenza, recombinant, quadrIvalent,injectable, prese rvative free 04/15/2020 12:08:00 PM EDT completed eCW1 ([facility]) influenza, recombinant, quadrIvalent,injectable, prese rvative free 04/15/2020 12:08:00 PM EDT completed eCW1 ([facility]) influenza, recombinant, quadrIvalent,injectable, prese rvative free 04/15/2020 12:08:00 PM EDT completed eCW1 ([facility]) influenza, recombinant, quadrIvalent,injectable, prese rvative free 04/15/2020 12:08:00 PM EDT completed eCW1 ([facility]) influenza, recombinant, quadrIvalent,injectable, prese rvative free 04/15/2020 12:08:00 PM EDT completed eCW1 ([facility]) influenza, recombinant, quadrIvalent,injectable, prese rvative free 04/15/2020 12:08:00 PM EDT completed eCW1 ([facility]) influenza, recombinant, quadrIvalent,injectable, prese rvative free 04/15/2020 12:08:00 PM EDT completed eCW1 ([facility]) influenza, recombinant, quadrIvalent,injectable, prese rvative free 04/15/2020 12:08:00 PM EDT completed eCW1 ([facility]) INFLUENZA VACCINE QUADRIVALENT 2019- (65 YR UP)/MF59 [...] DOSE) INJECT DIRECTED (THIRD DOSE) SOLD: 04/03/2021 [facility] SUPREP BOWEL PREP KIT 17.5-3.13-1.6 gram SODIUM, POTASSIUM,M AG SULFATES 03/07/2021 12:00:00 AM EDT recon soln 354 USE DIRECTED USE DIRECTED SOLD: 03/09/2021 [facility] Suprep Bowel Prep Kit Suprep Bowel Prep Kit 03/06/2021 12:00:00 AM EDT active MEDENT ([facility]) 10 mEq 03/06/2021 [...] 1.0 {tablet} active Metolazone 2.5 MG eCW1 ([facility]) Metolazone 2.5 MG Oral Tablet Metolazone 2.5 MG 04/29/2020 12:00:00 AM EDT 1.0 {tablet} suspended Metolazone 2.5 MG eCW 1 ([facility]) Metolazone 2.5 MG Oral Tablet Metolazone 2.5 MG 04/29/2020 12:00:00 AM EDT 1.0 {tablet} suspended Metolazone 2.5 MG eCW 1 ([facility]) Metolazone 2.5 MG Oral Tablet Metolazone 2.5 MG 04/29/2020 12:00:00 AM EDT 1.0 {tablet} active Metolazone 2.5 MG eCW1 ([facility]) Metolazone 2.5 MG Oral Tablet Metolazone 2.5 MG 04/29/2020 12:00:00 AM EDT 1.0 {tablet} suspended Metolazone 2.5 MG eCW 1 ([facility]) Metolazone 2.5 MG Oral Tablet Metolazone 2.5 MG 04/29/2020 12:00:00 AM EDT 1.0 {tablet} suspended Metolazone 2.5 MG eCW 1 ([facility]) Metolazone 2.5 MG Oral Tablet Metolazone 2.5 MG 04/29/2020 12:00:00 AM EDT 1.0 {tablet} suspended Metolazone 2.5 MG eCW 1 ([facility]) 2.5 mg 04/29/2020 12:00:00 AM EDT tablet 30 TAKE ONE TABLET BY MOUTH EVERY DAY TAKE ONE TABLET BY MOUTH EVERY DAY SOLD: 04/29/2020 [facility] Metolazone 2.5 MG Oral Tablet Metolazone 2.5 MG 04/29/2020 12:00:00 AM EDT 1.0 {tablet} active Metolazone 2.5 MG eCW1 ([facility]) Metolazone 2.5 MG Oral Tablet Metolazone 2.5 MG 04/29/2020 12:00:00 AM EDT 1.0 {tablet} suspended Metolazone 2.5 MG eCW 1 ([facility]) Metolazone 2.5 MG Oral Tablet Metolazone 2.5 MG 04/29/2020 12:00:00 AM EDT 1.0 {tablet} active Metolazone 2.5 MG eCW1 ([facility]) Metolazone 2.5 MG Oral Tablet Metolazone 2.5 MG 04/29/2020 12:00:00 AM EDT 1.0 {tablet} active Metolazone 2.5 MG eCW1 ([facility]) 0.4 mg 03/21/2020 12:00:00 AM EDT [...] type / Coverage type Policy ID Covered alliance party ID Covered alliance party's relationship to busby Policy Busby Plan Information MEDICARE BLUE PPO 306 [id number] SP [id number] BS [facility] Part B [id number] Self [id number] BS [place] [facility] Medigap Part B [id number] Self [id number] Blue Shield MCR Advantage Medigap Part B [id number] Self [id number] Blue Shield MCR Advantage Medigap Part B [id number] Self [id number] MEDICARE BLUE PPO EXCELLUS BC [id number] SP [id number] Blue Shield MCR Advantage Commercial [id number] Self [id number] MEDICARE BLUE PPO EXCELLUS BC [id number] SP [id number] Medicare Blue Ppo Commercial [id number] Self [id number] [employer] [place] MEDIC[place] [id number] Melissa [id number] MEDICARE BLUE PPO 306 [id number] SP [id number] MEDICARE BLUE PPO [place] [id number] SP [id number] SELF PAY MEDICARE BLUE PPO [place] [id number] SP [id number] SELF PAY SELF PAY MEDICARE BLUE PPO [place] [id number] SP [id number] ANSI-Medicare Part B [id number] ANSI-Medicare Part B [id number] MEDICARE BLUE PPO 306 [id number] SP [id number] MEDICARE BLUE PPO 306 [id number] SP [id number] ANSI-Medicare Part B [id number] ANSI-Medicare Part B [id number] ANSI-Medicare Part B [id number] ANSI-Medicare Part B [id number] ANSI-Medicare Part B [id number] ANSI-Medicare Part B [id number] ID IDENTIFICATION [id number] Other Insurance [id number] [employer] [id number] Blue Cross/Nicole eld [id number] Medicare Blue Ppo Commercial [id number] Self [id number] [employer] BCBS B [id number] S VYM [id number] MEDICARE BLUE PPO 306 [id number] SP [id number] [place]-BS PPO 306 [id number] SP [id number] MEDICARE BLUE PPO 306 [id number] SP [id number] MEDICARE BLUE PPO P [id number] S [id number] BLUE CROSS BLUE SHIELD MCR -OP [id number] ANSI-Medicare Part B [id number] ANSI-Medicare Part B [id number] Problems, Conditions, and Diagnoses Code Display Name Description Problem Type Effective Dates Data Source(s) G47.33 Obstructive sleep apnea (adult) (pediatr ic) Obstructive sleep apnea (adult) (pediatr Diagnosis 12/15/2020 10:27:52 AM EDT [facility] R60.9 Edema, unspecified Edema, unspecified Diagnosis 09/2020 10:27:52 AM EDT [facility] I10 Essential (primary) hypertension Essential (primary) h ypertension Diagnosis 12/15/2020 10:27:52 AM EDT [facility] E78.5 Hyperlipidemia, unspecified Hyperlipidemia, unspecifie d Diagnosis 12/15/2020 10:27:52 AM EDT [facility] R94.31 Abnormal electrocardiogram [ECG] [EKG] A bnormal electrocardiogram (ECG) (EKG) Diagnosis 12/15/2020 10:27:52 AM EDT [facility] Z85.828 [id number] History of basal cell carcinoma Problem 04/13/2021 12:00:00 AM EDT eCW1 ([facility]) [id number] Essential hypertension Essential hypertension Problem 01/17/2021 12:00:00 AM EDT MEDENT ([facility] ) [id number] Pure hypercholesterolemia Pure hypercholesterolemia Pr oblem 01/17/2021 12:00:00 AM EDT MEDENT ([facility] ) K59.01 [id number] Slow transit constipation Problem 10/06/2020 12:00:00 AM EDT eCW1 ([facility]) R53.82 [id number] Chronic fatigue Problem 10/06/2020 12:00:00 AM EDT eCW1 ([facility]) 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 0 08/25/2020 12:00:00 AM EST MEDENT ([facility], ) I50.33 [id number] Acute on chronic diastolic (congestive) h eart failure Problem 04/29/2020 12:00:00 AM EDT eCW1 ([facility]) Surgeries/Procedures Procedure Description Date Indications Data Source(s) Colonoscopy W/ Poly 03/13/2021 12:00:00 AM EDT MEDENT ([facility]) Spirometry 02/23/2021 12:00:00 AM EDT M EDENT ([facility]) OFFICE OUTPATIENT VISIT 25 MINUTES 02/23/2021 12:00:00 AM EDT MED[facility] ([facility]) OFFICE OUTPATIENT NEW 30 MINUTES 02/20/2021 12:00:00 A M EDT MED[facility] ([facility]) RADIOLOGIC EXAMINATION KNEE 3 VIEWS 01/11/2021 12:00:0 0 AM EDT MEDENT ([facility]) OFFICE OUTPATIENT VISIT 15 MINUTES 01/11/2021 12:00:00 AM EDT MEDENT ([facility]) Spirometry 08/25/2020 12:00:00 AM EST M EDENT ([facility]) OFFICE OUTPATIENT VISIT 15 MINUTES 08/25/2020 12:00:00 AM EST MEDENT ([facility]) Results ID Date Data Source [id number] 03/13/2021 10:11:00 AM EDT MEDENT ([facility]) Name Value Range Interpretation Code Description Data Dinorah rce(s) Supporting Document(s) Surgical pathology study Laboratory test result [facility] ([facility]) FINAL DIAGNOSIS Colon, polyp, polypectomy: Fecal [...] MD 03/14/2021 1340 ID Date Data Source [id number] 02/23/2021 10:59:00 AM EDT MEDENT ([facility]) Name Value Range Interpretation Code Description Data Dinorah rce(s) Supporting Document(s) FVC-Pred 3.52 L MEDENT ([facility], ) PDFReport Laboratory test result MEDENT ([facility]) FVC-%Pred-Pre 89 L MEDENT ([facility]) FVC-Pre 3.13 L MEDENT ([facility]) FVC-LLN 2.62 L MEDENT ([facility]) Fev1-Pre 1.99 L MEDENT ([facility]) Fev1-Pred 2.43 L MEDENT ([facility]) Fev1-%Pred-Pre 81 L MEDENT ([facility]) Fev1-LLN 1.67 L MEDENT ([facility]) Fev6-Pre 3.13 L MEDENT ([facility]) Fev6-Pred 3.24 L MEDENT ([facility]) Fev6-LLN 2.37 L MEDENT ([facility]) Fev6-%Pred-Pre 96 L MEDENT ([facility]) Uqz2ugx-Bud 63 % [facility] ([facility]) Mqm4kaq-Rbgb 70 % [facility] ([facility]) Lad5pep-Deir 92 % [facility] ([facility]) Zww3mmn-%Pred-Pre 90 % MEDENT ([facility]) Pit3gab-VTZ 61 % [facility] ([facility]) Ywn3qwh-%Pred-Pre 108 % MEDENT ([facility] ) Kah0veu-Mob 100 % MED[facility] ([facility]) FEFMax-Pred 6.10 L/E/sec MED[facility] ([facility]) FEFMax-Pre 5.81 L/E/sec MED[facility] ([facility]) FEFMax-LLN 3.88 L/E/sec MED[facility] ([facility]) FEFMax-%Pred-Pre 95 L/E/sec MED[facility] ([facility]) Lrx1202-Ndrd 1.54 L/E/sec MEDENT ([facility]) Zuy0277-Gch 1.11 L/E/sec [facility] ([facility]) Umw5495-%Pred-Pre 71 L/E/sec MEDENT ([facility]) Dyu1792-EAN 0.00 L/E/sec [facility] ([facility]) ExpTime-Pre 4.87 sec MED[facility] ([facility]) Xye1zfq8-Bixz 75 % [facility] ([facility]) Gii0rxy7-%Pred-Pre 84 % [facility] ([facility]) Qhu4rri6-Ngh 63 % [facility] ([facility]) Ljc4xyj3-EVU 66 % [facility] ([facility]) ID Date Data Source [id number] 11/16/2020 03:42:00 PM EDT CH[facility]MAKER ([facility]) LUMBAR SPINE RADIOGRAPHS INDICATION: [...] multilevel degenerative changes. Professional interpretation performed by [facility] Medical [facility] . Name Value Range Interpretation Code Description Data Dinorah rce(s) Supporting Document(s) ID Date Data Source [id number] 08/25/2020 01:48:00 PM EST MEDENT ([facility], ) Name Value Range Interpretation Code Description Data [facility] rce(s) Supporting Document(s) PDFReport Laboratory test result MEDENT ([facility], ) FVC-Pre 3.03 L MEDENT ([facility]) FVC-Pred 3.56 L MED[facility] ([facility]) FVC-%Pred-Pre 84 L MEDENT ([facility], ) Fev1-Pred 2.47 L [facility] ([facility]) FVC-LLN 2.67 L [facility] ([facility]) Fev1-%Pred-Pre 83 L [facility]ENT ([facility]) Fev1-LLN 1.71 L [facility] ([facility]) Fev1-Pre 2.07 L [facility] ([facility]) Fev6-Pre 3.03 L [facility] ([facility]) Fev6-Pred 3.29 L [facility] ([facility]) Fev6-%Pred-Pre 91 L [facility] ([facility]) Fev6-LLN 2.42 L MED[facility] ([facility]) Pfg6mep-Qjuo 71 % [facility] ([facility]) Sri5kmt-Lii 68 % [facility] ([facility]) Bje3dmu-%Pred-Pre 97 % [facility] ([facility]) Qwk0uzb-XPF 61 % [facility] ([facility]) Fqk1pth-Wewp 92 % [facility] ([facility]) Qwy9uoe-Ooh 100 % [facility] ([facility]) Ufp3xim-%Pred-Pre 108 % [facility] ([facility]) FEFMax-Pred 6.24 L/E/sec [facility] ([facility]) FEFMax-%Pred-Pre 85 L/E/sec MED[facility] ([facility]) FEFMax-Pre 5.33 L/E/sec [facility] ([facility]) Qdb6621-Gwo 1.28 L/E/sec [facility] ([facility]) FEFMax-LLN 4.02 L/E/sec [facility] ([facility]) Ynk5731-Sdzq 1.59 L/E/sec [facility] ([facility]) Sqj7221-JAH 0.05 L/E/sec [facility] ([facility]) Iei3360-%Pred-Pre 80 L/E/sec [facility] ([facility]) Ttk8jug9-Kwqu 76 % [facility] ([facility]) ExpTime-Pre 4.91 sec MED[facility] ([facility]) Gwd2det6-%Pred-Pre 90 % [facility] ([facility]) Wdu9idm1-Dqn 68 % [facility] ([facility]) Fkn3jhh0-DIL 67 % [facility] ([facility]) ID Date Data Source [id number] 05/19/2020 08:57:25 AM EST [facility] Name Value Range Interpretation Code Description Data Dinorah rce(s) Supporting Document(s) &PDF [facility] OEOGCm9sBrRGAtXe01/SZSloMSKmd8OmGTdfEXf6LRmuGCQsT7PyeZcoEDNRSLRPXByROQNIBVTuAQKy FcG [file] XEVNERKFKQHYJSDMYZFCNAgegzgA6mgSDhRMUMfihH rTDcQvkKkA+4JgvgBkungRrH1e81Yg4U/cwJnEJrHiAGWIRRMYqe9Q3+0l3lQ6bXRf+OjYxoHoXs8GMQ Eqpc/9FxufJt8IQ2DaOCDclMM0aBCCLeRcME/12TuXz080Te7uiKzhKevqZc/sQ9OuPGJTPFDDYRKBQC XPVIGXRDXOQHQGDQWDSIHKLOSPNjLt9XNuaPgkOkFg iwA8B1MoMOkK770m0JDp4QYEUA+OlF7+nV3nOSzWKHra3rBem0bEhjohqi9BtNRNi1ELW889A25H6FtL hbEcV+v4/e3qvJsek04/gTSj5lHfsz3zbbW1OOLU2Vg15ZWGgM3K5xn/mzfBpniccJOLfiCc38+cUsiT ajqLipUAGl0mB2xg65fp5JEpLRqDEf6UCznP6X/m57 wOMtYFcZ7fV/EELDW53IrS39xBeteuto05hZzfklVoQTTpTL5IXPkMTZjSnlkfqFdgG+1whbkO543fEF Usr8nYCI5/oPGr84yDX7p9exWhXFVZEyvKmamtQqGYq5gWihGQHpF+eoeWumVXXf4zwNhGE9tArZbzLr thHH3d9kVBSiOlnWu7v4/CjX/5RduB/QwVWvMAFU8a vp clinical/UjWIx7B609tWo1bw7Qo5QKYzkyh5l2wUErwqp7y8Hk0fLX0EIfMpvGGPtjNLz0hDUffv6ps98NJP3 [file] I3zIcZZ4O1ovcQSnpqCETp7AOj+pJ82xnfcl9Vq9Z4hhhndkop3JZsxh5fI0k0/Jz/coil tester+QGxWRQzTP8h [file] ICAgICAgICAgICAgICAgICAgICAgICAgICAgICAgICAgICAgICAgICAgICAgICAgICAgICAgICAgICAg ICAgICAgICAgICAgICAgICAgICAgICAgDQogICAgIC AgICAgICAgICAgICAgICAgICAgICAgICAgICAgICAgICAgICAgICAgICAgICAgICAgICAgICAgICAgIC AgICAgICAgICAgICAgICAgICAgICAgICAgICAgICAgICAgDQogICAgICAgICAgICAgICAgICAgICAgIC AgICAgICAgICAgICAgICAgICAgICAgICAgICAgICAg ICAgICAgICAgICAgICAgICAgICAgICAgICAgICAgICAgICAgICAgICAgICAgDQogICAgICAgICAgICAg ICAgICAgICAgICAgICAgICAgICAgICAgICAgICAgICAgICAgICAgICAgICAgICAgICAgICAgICAgICAg ICAgICAgICAgICAgICAgICAgICAgICAgICAgDQogIC AgICAgICAgICAgICAgICAgICAgICAgICAgICAgICAgICAgICAgICAgICAgICAgICAgICAgICAgICAgIC AgICAgICAgICAgICAgICAgICAgICAgICAgICAgICAgICAgICAgDQogICAgICAgICAgICAgICAgICAgIC AgICAgICAgICAgICAgICAgICAgICAgICAgICAgICAg ICAgICAgICAgICAgICAgICAgICAgICAgICAgICAgICAgICAgICAgICAgICAgICAgDQogICAgICAgICAg ICAgICAgICAgICAgICAgICAgICAgICAgICAgICAgICAgICAgICAgICAgICAgICAgICAgICAgICAgICAg ICAgICAgICAgICAgICAgICAgICAgICAgICAgICAgDQ ogICAgICAgICAgICAgICAgICAgICAgICAgICAgICAgICAgICAgICAgICAgICAgICAgICAgICAgICAgIC AgICAgICAgICAgICAgICAgICAgICAgICAgICAgICAgICAgICAgICAgDQogICAgICAgICAgICAgICAgIC AgICAgICAgICAgICAgICAgICAgICAgICAgICAgICAg ICAgICAgICAgICAgICAgICAgICAgICAgICAgICAgICAgICAgICAgICAgICAgICAgICAgDQogICAgICAg ICAgICAgICAgICAgICAgICAgICAgICAgICAgICAgICAgICAgICAgICAgICAgICAgICAgICAgICAgICAg ICAgICAgICAgICAgICAgICAgICAgICAgICAgICAgIC EwQRp9L7lcWWAyXZIpGP8iGTk8Ai3+AYmUUlVqPZQ1jdBcrE5VPT5jb4TqCIttVQAbq7VmGJg0YQ6PGZ IzPMbfRG9DDFldwd9OFDJtYZNjhEKYw7jqVmKiYZF9ULPvYnicHC1NYYJbE0uihbJtZYWwUFHFOZoqID XRRI1YDsGiN9EjoB13YRDGOh3+DQplbmRvYmoNCjQw DPLyn7QeWZj4JG2UBCUzQQhvCT4MBTTjeC3bMPxvJQ9PJkEkAREbZZZDGwRaI87cqEQkRWt8C6JpSwSb ZGVkRmlsZXMgPDwvTmFtZXMgWyBdDQogID4+ID4+AVccUW0INVsyjgWkNMAaLl1OBJRrKXK0DXKgpZUu GfydMCARSMwqZI7XwNKcHUB0qQ6zGYbyLXNeMQWaX0 pHWiHhaRsqYX21cYewthUseCExGSs+Fh9EPH3wa7YuIBo1xkQlRXoyGYZeLHoiNABiKCWtVTAwSYZ3RG O9SFBJYiGjBKIgIOYdWZhfGHTsXXEanu3FGFLrQSQ1YwB2MEClNDEeZGHdUEpkUUPuPEV5MojlUKVrHQ FnCG8COhNmDTAvNSNfRQSmETCrNPRmsc8YLIQuIOAa VgC7NsRnJJYoWFIbATxwCVMvKBEgPXr4HTOkUGLcBH3ZZoZiCLTlACGuYOkcOEFcYTPdcx9XTGMpJXLi YLB8SxCmVJIlFCOlESzwQQBxANF6JOAxLIJmJEBwUQ4IVpBiSIHwNNR8XGfhQSPiYQEdwg8NDLUzNSBd Yad7CHBtJHOsWXEqGIvxNBRuWQB3JjM3PZNqJCEqYH 4IGmNoMWQgSFd7OFewDPTbKBNufl0WDYAvPCOxUYN6NiRhOWYlJTMtEYrkAITuYXKnOISiDYEiXCMbCO 3FWiPsXLQhLLFsXxKdEYVuJUDmfh7HHXKcVZEeLgZzWuBfZWEsKMGiLGeyUPHnKMPcHhrqDMUaHKTqIZ 9ZNmLnLHLbVRA8JRwnNFCmIEVono9OQRWnFKRpBHm9 HVQhSKArBXZpVQprUNHtNWN3SVC4EQOlLTBaTQ9AQzAvWKSiPZVnHPxdTZByHAApfj9KDCYoRLFtYVif MvVtGZKtFJTnHSulSAOgFESwQBGwAYQzKYQoTT3ODtEdHVLqYmGlWDPgUORvTUXpkg2INHZxONJtJvdl RLLyKYOqLDBxQShcIKViBFBpIMV4KJYaLFVjNV0XHq IlEXJuUpTwMeDtDCTuGJTrnc8RAPCsBJGiOmR1QYHzASBzULZgUXjsNSPzUKR4Qzw4PHYgCEBkRR5KWl RyKOPvEYZ4BTAtQHHfBUHzde3XXKQoIAG7Jki7TNIlBTNzUIPxNSucTSSlAFJ3Wwt0NEYpTEJwPS5TVg AsZTLdVIUkKAUmWJGoCUCtim4ULSMjAYU0JkK0ZzGe ATZrYJLlKSiyQOVtAXT6HOhwUWYtIUFiMV6KYyHlGIKfYeFqVUYdVMYuNEAfdj2XLJAuTXR5AaDvCnDr MRUtDQYrTKylQJTmFIA3LNYlRNRbIJCvAO7BVrTuPSJxDvu7PnUjRXLsZSEtdz1XkGLfsMnjpj6CLBwT Ei1XuHygSJPfHTfdJk4koFS2NLDhCEXTNl7HqhViPE JnYWHBIGdrCDIsTKKdWrUlHiJdAzMpDPNzVThaUlI6DUQ8YRRqERSrESJlHvX8WBC4POSqG6Y3QjO9Lm G4RVO9NHZcUxhyJZVaPwR9AeC+IT7iJWb+Up6Gz6YnqzD6esXvCDr3IQN2Vq2IWCKAE8GGLa== ID Date Data Source RENAL PROFILE 05/16/2020 10:26:36 AM EST eCW1 ([facility]) Name Value Range Interpretation Code Description Data Dinorah rce(s) Supporting Document(s) 35 BLOOD UREA NITROGEN eCW1 ([facility]) 48.5 GLOMERULAR FILTRATION RATE eCW 1 ([facility]) 132 GLUCOSE, FASTING eCW1 ([facility]) 1.47 CREATININE FOR GFR eCW1 ([facility]) 4.2 POTASSIUM SERUM eCW1 ([facility]) 31 CARBON DIOXIDE LEVEL eCW1 ([facility]) 139 SODIUM LEVEL eCW1 ([facility]) 101 CHLORIDE LEVEL eCW1 ([facility]) 2.3 PHOSPHORUS LEVEL eCW1 ([facility]) 3.8 ALBUMIN eCW1 ([facility]) 9.3 CALCIUM LEVEL eCW1 ([facility]) ID Date Data Source NT-PRO BNP 05/16/2020 10:26:36 AM EST eCW1 ([facility]) Name Value Range Interpretation Code Description Data Dinorah rce(s) Supporting Document(s) 444 NT-PRO BNP eCW1 ([facility]) Procedure Social History Code Duration Value Status Description Data Source(s ) Smoking 08/25/2020 12:00:00 AM EST Patient is a former smoker completed Patient is a former smoker MED[facility] ([facility], ) Vital Signs ID Date Data Source UNK Name Value Range Interpretation Code Description Data Source(s) Body weight 197.4 [lb_av] 197.4 [lb_av] eCW1 ([facility]) Body height 68 [in_i] 68 [in_i] eCW1 ([facility]) Body mass index (BMI) [Ratio] 30.01 kg/m2 30.01 kg/m2 W1 ([facility]) Systolic blood pressure 132 mm[Hg] 132 mm[Hg] e CW1 ([facility]) Diastolic blood pressure 74 mm[Hg] 74 mm[Hg] eCW1 ([facility]) Diastolic blood pressure 60 mm[Hg] 60 mm[Hg] [facility] ([facility], ) Heart rate 100 /min 100 /min [facility] ([facility], ) Systolic blood pressure 130 mm[Hg] 130 mm[Hg] M [facility] ([facility]) Oxygen saturation in Arterial blood by Pulse oximetry 92 % 92 % [facility] ([facility]) Body height 68.5 [in_i] 68.5 [in_i] [facility] ([facility], ) 5'8.50" Body weight 198.00 [lb_av] 198.00 [lb_av] MEDEN T ([facility], ) Body mass index (BMI) [Ratio] 29.7 kg/m2 29.7 k g/m2 [facility] ([facility]) [place] body weight 154 [lb_av] 154 [lb_av] MEDEN T ([facility]) Body weight 89.813 kg 89.813 kg [facility] ([facility]) Body surface area Derived from formula 2.05 m2 2.05 m2 [facility] ([facility]) Body height 68.5 [in_i] 68.5 [in_i] [facility] ([facility]) 5'8.50" [place] body weight 154 [lb_av] 154 [lb_av] MEDEN T ([facility]) Systolic blood pressure 134 mm[Hg] 134 mm[Hg] M [facility] ) Diastolic blood pressure 58 mm[Hg] 58 mm[Hg] [facility] ([facility]) Body temperature 98.5 [degF] 98.5 [degF] MEDENT ([facility]) Body weight 197.12 [lb_av] 197.12 [lb_av] MEDEN T ([facility]) Body mass index (BMI) [Ratio] 29.5 kg/m2 29.5 k g/m2 [facility] ([facility]) Body weight 89.416 kg 89.416 kg [facility] ([facility]) Body surface area Derived from formula 2.04 m2 2.04 m2 [facility] ([facility]) Body weight 198 [lb_av] 198 [lb_av] eCW1 ([facility]) Body height 68 [in_i] 68 [in_i] eCW1 ([facility]) Body mass index (BMI) [Ratio] 30.10 kg/m2 30.10 kg/m2 eCW1 ([facility]) Heart rate 44 /min 44 /min eCW1 ([facility]) Respiratory rate 18 /min 18 /min eCW1 ([facility]) Body temperature 98.2 [degF] 98.2 [degF] eCW1 ( [facility]) Systolic blood pressure 136 mm[Hg] 136 mm[Hg] e CW1 ([facility]) Diastolic blood pressure 58 mm[Hg] 58 mm[Hg] eCW1 ([facility]) Body weight 202 [lb_av] 202 [lb_av] eCW1 ([facility]) Body height 68 [in_i] 68 [in_i] eCW1 ([facility]) Body mass index (BMI) [Ratio] 30.71 kg/m2 30.71 kg/m2 eCW1 ([facility]) Heart rate 41 /min 41 /min eCW1 ([facility]) Respiratory rate 18 /min 18 /min eCW1 ([facility]) Body temperature 97.7 [degF] 97.7 [degF] eCW1 ( [facility]) Systolic blood pressure 152 mm[Hg] 152 mm[Hg] e CW1 ([facility]) Diastolic blood pressure 70 mm[Hg] 70 mm[Hg] eCW1 ([facility]) Oxygen saturation in Arterial blood by Pulse oximetry 96 % 96 % [facility] ([facility]) Body height 68.5 [in_i] 68.5 [in_i] [facility] ([facility]) 5'8.50" Body weight 201.00 [lb_av] 201.00 [lb_av] MEDEN T ([facility]) Body mass index (BMI) [Ratio] 30.1 kg/m2 30.1 k g/m2 [facility] ([facility]) [place] body weight 154 [lb_av] 154 [lb_av] MEDEN T ([facility]) Body weight 91.174 kg 91.174 kg [facility] ([facility]) Body surface area Derived from formula 2.06 m2 2.06 m2 [facility] ([facility]) Systolic blood pressure 150 mm[Hg] 150 mm[Hg] M EDENT ([facility]) Diastolic blood pressure 90 mm[Hg] 90 mm[Hg] [facility] ([facility]) Heart rate 58 /min 58 /min [facility] ([facility]) Oxygen saturation in Arterial blood by Pulse oximetry 96 % 96 % [facility] ([facility]) Body height 68.5 [in_i] 68.5 [in_i] [facility] ([facility]) 5'8.50" Body weight 201.00 [lb_av] 201.00 [lb_av] MEDEN T ([facility]) Body mass index (BMI) [Ratio] 30.1 kg/m2 30.1 k g/m2 [facility] ([facility]) [place] body weight 154 [lb_av] 154 [lb_av] MEDEN T ([facility]) Body weight 91.174 kg 91.174 kg [facility] ([facility]) Body surface area Derived from formula 2.06 m2 2.06 m2 [facility] ([facility]) Body weight 200 [lb_av] 200 [lb_av] eCW1 ([facility]) Body height 68 [in_i] 68 [in_i] eCW1 ([facility]) Body mass index (BMI) [Ratio] 30.41 kg/m2 30.41 kg/m2 eCW1 ([facility]) Heart rate 60 /min 60 /min eCW1 ([facility]) Respiratory rate 18 /min 18 /min eCW1 ([facility]) Body temperature 96.9 [degF] 96.9 [degF] eCW1 ( [facility]) Systolic blood pressure 142 mm[Hg] 142 mm[Hg] e CW1 ([facility]) Diastolic blood pressure 64 mm[Hg] 64 mm[Hg] eCW1 ([facility]) Body weight 200 [lb_av] 200 [lb_av] eCW1 ([facility]) Body height 68 [in_i] 68 [in_i] eCW1 ([facility]) Body mass index (BMI) [Ratio] 30.41 kg/m2 30.41 kg/m2 eCW1 ([facility]) Heart rate 60 /min 60 /min eCW1 ([facility]) Respiratory rate 18 /min 18 /min eCW1 ([facility]) Body temperature 96.9 [degF] 96.9 [degF] eCW1 ( [facility]) Systolic blood pressure 128 mm[Hg] 128 mm[Hg] e CW1 ([facility]) Diastolic blood pressure 74 mm[Hg] 74 mm[Hg] eCW1 ([facility]) Body height 68 [in_i] 68 [in_i] eCW1 ([facility]) Body weight 198.2 [lb_av] 198.2 [lb_av] eCW1 (formerly [facility]) Body mass index (BMI) [Ratio] 30.13 kg/m2 30.13 kg/m2 eCW1 ([facility]) Diastolic blood pressure 82 mm[Hg] 82 mm[Hg] eCW1 ([facility]) Heart rate 60 /min 60 /min eCW1 ([facility]) Respiratory rate 18 /min 18 /min eCW1 ([facility]) Body temperature 97.8 [degF] 97.8 [degF] eCW1 ( [facility]) Systolic blood pressure 120 mm[Hg] 120 mm[Hg] e CW1 ([facility]) Body weight 205 [lb_av] 205 [lb_av] eCW1 ([facility]) Body height 68 [in_i] 68 [in_i] eCW1 ([facility]) Body mass index (BMI) [Ratio] 31.17 kg/m2 31.17 kg/m2 eCW1 ([facility]) Heart rate 58 /min 58 /min eCW1 ([facility]) Respiratory rate 18 /min 18 /min eCW1 ([facility]) Body temperature 97.9 [degF] 97.9 [degF] eCW1 ( [facility]) Systolic blood pressure 164 mm[Hg] 164 mm[Hg] e CW1 ([facility]) Diastolic blood pressure 64 mm[Hg] 64 mm[Hg] eCW1 ([facility]) Body mass index (BMI) [Ratio] 31.74 kg/m2 31.74 kg/m2 W1 ([facility]) Body weight 208.8 [lb_av] 208.8 [lb_av] eCW1 (formerly [facility]) Body height 68 [in_i] 68 [in_i] eCW1 ([facility])
[2021-05-24 21:34] VITALS: BP 132/84
== END 2021-05-24 21:36 | disposition home or self-care (01) ==
LOC: M ED 17:11
DX: S01.01XA Laceration without foreign body of scalp, initial encounter (principal); W18.30XA Fall on same level, unspecified, initial encounter; Y92.018 Other place in single-family (private) house as the place of occurrence of the external cause; R90.82 White matter disease, unspecified; J44.9 Chronic obstructive pulmonary disease, unspecified; N40.0 Benign prostatic hyperplasia without lower urinary tract symptoms; Z79.899 Other long term (current) drug therapy; Z79.51 Long term (current) use of inhaled steroids

== ENCOUNTER → 2021-07-19 | Outpatient (REF) | payer MEDICARE ==
[2021-07-19 12:33] LABS: BASO % 0.3 % (0.0-1.0); EOS # 0.1 10^3/uL (0.0-0.5); EOS % 1.5 % (0.0-3.0); HEMATOCRIT 45.3 % (42.0-52.0); HEMOGLOBIN 14.5 g/dl (13.5-17.5); LYMPH # 2.2 10^3/uL (1.5-5.0); LYMPH % 31.1 % (24.0-44.0); MEAN CORPUSCULAR HEMOGLOBIN 32.6 pg (27.0-33.0); MEAN CORPUSCULAR VOLUME 101.8 fl (80.0-96.0); MONO % 14.2 % (2.0-8.0); NEUTROPHILS # 3.8 10^3/uL (1.5-8.5); NEUTROPHILS % 52.6 % (36.0-66.0); PLATELET COUNT, AUTOMATED 182 10^3/uL (150-450); RED BLOOD COUNT 4.45 10^6/uL (4.30-6.10); WHITE BLOOD COUNT 7.1 10^3/uL (4.0-10.0)
[2021-07-19 13:44] LABS: ALBUMIN 3.8 GM/DL (3.2-5.2); BILIRUBIN,TOTAL 1.2 MG/DL (0.2-1.0); CALCIUM LEVEL 9.1 MG/DL (8.8-10.2); CHOLESTEROL RISK RATIO 2.157 (<5); CREATININE FOR GFR 1.22 MG/DL (0.70-1.30); POTASSIUM SERUM 3.7 MEQ/L (3.5-5.1); THYROID STIMULATING HORMONE 1.3 uIU/ML (0.358-3.740); TOTAL PROTEIN 6.6 GM/DL (6.4-8.2)
== END ==
LOC: M SFHCADAM 08:54
PROVIDERS: ATTEND Physician Assistant Medical
DX: E78.2 Mixed hyperlipidemia (principal); K21.9 Gastro-esophageal reflux disease without esophagitis; I50.32 Chronic diastolic (congestive) heart failure; E66.01 Morbid (severe) obesity due to excess calories

== ENCOUNTER → 2021-08-04 | Outpatient (CLI) | payer MEDICARE ==
[~2021-08-04] MED LIST changes: +POTA-149 PO; -POTA10TA16 PO
== END ==
LOC: M RAD 10:57
PROVIDERS: ATTEND Physician Assistant Medical
DX: Z86.718 Personal history of other venous thrombosis and embolism (principal); M25.562 Pain in left knee; I73.9 Peripheral vascular disease, unspecified

== ENCOUNTER → 2022-02-08 | Outpatient (REF) | payer MEDICARE ==
[2022-02-08 17:01] LABS: BASO % 0.3 % (0.0-1.0); EOS # 0.1 10^3/uL (0.0-0.5); HEMATOCRIT 47.1 % (42.0-52.0); HEMOGLOBIN 15.1 g/dl (13.5-17.5); LYMPH % 25.7 % (24.0-44.0); MEAN CORPUSCULAR HEMOGLOBIN 32.8 pg (27.0-33.0); MEAN CORPUSCULAR HGB CONC 32.1 g/dl (32.0-36.5); MEAN CORPUSCULAR VOLUME 102.4 fl (80.0-96.0); MONO # 0.9 10^3/uL (0.0-0.8); MONO % 11.7 % (2.0-8.0); NEUTROPHILS # 4.7 10^3/uL (1.5-8.5); NEUTROPHILS % 60.9 % (36.0-66.0); PLATELET COUNT, AUTOMATED 198 10^3/uL (150-450); WHITE BLOOD COUNT 7.7 10^3/uL (4.0-10.0)
[2022-02-08 17:31] LABS: ALT/SGPT 25 U/L (12-78); BILIRUBIN,TOTAL 1.1 MG/DL (0.2-1.0); BLOOD UREA NITROGEN 20 MG/DL (7-18); CALCIUM LEVEL 9.6 MG/DL (8.8-10.2); CARBON DIOXIDE LEVEL 32 MEQ/L (21-32); CHLORIDE LEVEL 105 MEQ/L (98-107); CHOLESTEROL LEVEL 151 MG/DL (<200); CHOLESTEROL RISK RATIO 2.696 (<5); CREATININE FOR GFR 1.11 MG/DL (0.70-1.30); GLOMERULAR FILTRATION RATE > 60.0 (>35); GLUCOSE, FASTING 90 MG/DL (70-100); HDL CHOLESTEROL 56 MG/DL (>40); LDL CHOLESTEROL 74 MG/DL (<100); NON-HDL-C 95 MG/DL; POTASSIUM SERUM 3.8 MEQ/L (3.5-5.1); SODIUM LEVEL 143 MEQ/L (136-145); TOTAL PROTEIN 7.1 GM/DL (6.4-8.2); TRIGLYCERIDES LEVEL 105 MG/DL (<150)
[2022-02-08 17:47] LABS: HEMOGLOBIN A1c 5.1 %
== END ==
LOC: M SFHCADAM 08:54
PROVIDERS: ATTEND Physician Assistant
DX: Z00.00 Encounter for general adult medical examination without abnormal findings (principal); E78.00 Pure hypercholesterolemia, unspecified

== ENCOUNTER → 2022-02-15 | Outpatient (REF) | payer MEDICARE ==
[2022-02-15 17:47] LABS: PERCENT SATURATION 29.5 % (19.7-50.0)
== END ==
LOC: M SFHCADAM 14:55
PROVIDERS: ATTEND Physician Assistant
DX: R58 Hemorrhage, not elsewhere classified (principal); I50.32 Chronic diastolic (congestive) heart failure

== ENCOUNTER → 2022-09-05 | Outpatient (REF) | payer MEDICARE ==
[2022-09-05 13:13] LABS: BASO % 0.3 % (0.0-1.0); EOS # 0.1 10^3/uL (0.0-0.5); EOS % 1.3 % (0.0-3.0); HEMATOCRIT 43.9 % (42.0-52.0); HEMOGLOBIN 14.1 g/dl (13.5-17.5); LYMPH # 1.9 10^3/uL (1.5-5.0); LYMPH % 26.5 % (24.0-44.0); MEAN CORPUSCULAR HEMOGLOBIN 32.6 pg (27.0-33.0); MEAN CORPUSCULAR HGB CONC 32.1 g/dl (32.0-36.5); MEAN CORPUSCULAR VOLUME 101.6 fl (80.0-96.0); MONO # 0.9 10^3/uL (0.0-0.8); MONO % 12.9 % (2.0-8.0); NEUTROPHILS # 4.1 10^3/uL (1.5-8.5); NEUTROPHILS % 58.6 % (36.0-66.0); PLATELET COUNT, AUTOMATED 185 10^3/uL (150-450); RED BLOOD COUNT 4.32 10^6/uL (4.30-6.10); WHITE BLOOD COUNT 7.1 10^3/uL (4.0-10.0)
[2022-09-05 13:18] LABS: HEMOGLOBIN A1c 5.2 % (4.0-6.0)
[2022-09-05 13:23] LABS: CREATININE, URINE 91.1 MG/DL
[2022-09-05 13:24] LABS: MALB URINE SIEMENS < 3.0 MG/DL; MAU/CREAT RATIO 3.2 MCG/MG (0.0-30.0)
[2022-09-05 13:29] LABS: BLOOD UREA NITROGEN 18 MG/DL (9-23); CREATININE FOR GFR 1.04 MG/DL (0.70-1.30); GLUCOSE, FASTING 83 MG/DL (74-106)
[2022-09-05 13:30] LABS: ALBUMIN 3.7 G/DL (3.2-5.2); ALKALINE PHOSPHATASE 84 U/L (46-116); ALT/SGPT 20 U/L (7.0-40); AST/SGOT 28 U/L (<34); BILIRUBIN,TOTAL 1.4 MG/DL (0.3-1.2); CALCIUM LEVEL 9.8 MG/DL (8.3-10.6); CARBON DIOXIDE LEVEL 30 MMOL/L (20-31); CHLORIDE LEVEL 103 MMOL/L (98-107); CHOLESTEROL LEVEL 134 MG/DL (<200); CHOLESTEROL RISK RATIO 2.76 (<5); FREE T4 1.39 NG/DL (0.89-1.76); GLOMERULAR FILTRATION RATE > 60.0 (>35); HDL CHOLESTEROL 48.4 MG/DL (>40); MAGNESIUM LEVEL 2.2 MG/DL (1.8-2.4); NON-HDL-C 86 MG/DL; SODIUM LEVEL 140 MMOL/L (136-145); THYROID STIMULATING HORMONE 1.707 uIU/ML (0.55-4.78)
[2022-09-05 18:37] LABS: LDL CHOLESTEROL 63.4 MG/DL (<100); TOTAL PROTEIN 6.6 G/DL (5.7-8.2); TRIGLYCERIDES LEVEL 111 MG/DL (<150)
== END ==
LOC: M SFHCADAM 08:39
PROVIDERS: ATTEND Physician Assistant Medical
DX: N40.1 Benign prostatic hyperplasia with lower urinary tract symptoms (principal); I10 Essential (primary) hypertension; E66.01 Morbid (severe) obesity due to excess calories; E83.41 Hypermagnesemia
CPT/HCPCS: 80053; 80061; 82043; 83036; 83735; 84439; 84443; 85025; G0103

== ENCOUNTER → 2023-02-19 | Outpatient (REF) | payer MEDICARE ==
[~2023-02-19] MED LIST changes: -DILT1CAP7 PO; +DILT300C16 PO
[2023-02-19 17:23] LABS: BASO % 0.4 % (0.0-1.0); EOS # 0.1 10^3/uL (0.0-0.5); EOS % 1.1 % (0.0-3.0); HEMATOCRIT 44.6 % (42.0-52.0); HEMOGLOBIN 14.3 g/dl (13.5-17.5); LYMPH % 29.2 % (24.0-44.0); MEAN CORPUSCULAR HEMOGLOBIN 32.4 pg (27.0-33.0); MEAN CORPUSCULAR HGB CONC 32.1 g/dl (32.0-36.5); MEAN CORPUSCULAR VOLUME 101.1 fl (80.0-96.0); MONO # 0.8 10^3/uL (0.0-0.8); MONO % 11.7 % (2.0-8.0); NEUTROPHILS % 57.3 % (36.0-66.0); PLATELET COUNT, AUTOMATED 199 10^3/uL (150-450); RED BLOOD COUNT 4.41 10^6/uL (4.30-6.10)
[2023-02-19 17:34] LABS: URIC ACID 9.1 MG/DL (3.7-9.2)
[2023-02-19 17:36] LABS: ALBUMIN 3.8 G/DL (3.2-5.2); ALKALINE PHOSPHATASE 83 U/L (46-116); ALT/SGPT 18 U/L (7.0-40); AST/SGOT 20 U/L (<34); BLOOD UREA NITROGEN 18 MG/DL (9-23); CALCIUM LEVEL 9.4 MG/DL (8.3-10.6); CARBON DIOXIDE LEVEL 30 MMOL/L (20-31); CHLORIDE LEVEL 106 MMOL/L (98-107); CHOLESTEROL LEVEL 127 MG/DL (<200); CHOLESTEROL RISK RATIO 3.27 (<5); CREATININE FOR GFR 1.06 MG/DL (0.70-1.30); GLOMERULAR FILTRATION RATE > 60.0 (>35); GLUCOSE, FASTING 95 MG/DL (74-106); HDL CHOLESTEROL 38.8 MG/DL (>40); LDL CHOLESTEROL 61.2 MG/DL (<100); NON-HDL-C 88.2 MG/DL; SODIUM LEVEL 145 MMOL/L (136-145); THYROID STIMULATING HORMONE 1.162 uIU/ML (0.55-4.78); TOTAL PROTEIN 6.5 G/DL (5.7-8.2); TRIGLYCERIDES LEVEL 135 MG/DL (<150)
[2023-02-19 17:37] LABS: TOTAL 25(OH) VITAMIN D 67.5 NG/ML (20.0-100.0)
[2023-02-19 17:56] LABS: HEMOGLOBIN A1c 4.9 % (4.0-6.0)
== END ==
LOC: M SFHCADAM 13:33
PROVIDERS: ATTEND Physician Assistant Medical
DX: Z00.00 Encounter for general adult medical examination without abnormal findings (principal); E78.2 Mixed hyperlipidemia; K21.9 Gastro-esophageal reflux disease without esophagitis; G47.33 Obstructive sleep apnea (adult) (pediatric); I50.32 Chronic diastolic (congestive) heart failure; E66.01 Morbid (severe) obesity due to excess calories; M10.9 Gout, unspecified

== ENCOUNTER → 2023-02-19 | Outpatient (CLI) | payer MEDICARE | LOC: M ADAMS 13:46 | PROVIDERS: ATTEND Physician Assistant Medical | DX: Z00.00 Encounter for general adult medical examination without abnormal findings (principal); I50.32 Chronic diastolic (congestive) heart failure; M10.9 Gout, unspecified; E78.2 Mixed hyperlipidemia; K21.9 Gastro-esophageal reflux disease without esophagitis; G47.33 Obstructive sleep apnea (adult) (pediatric); E66.01 Morbid (severe) obesity due to excess calories; Z79.899 Other long term (current) drug therapy ==

== ENCOUNTER → 2023-05-15 | Outpatient (CLI) | payer MEDICARE | LOC: M ADAMS 14:57 | PROVIDERS: ATTEND Nurse Practitioner Family | DX: D49.2 Neoplasm of unspecified behavior of bone, soft tissue, and skin (principal) ==

== ENCOUNTER → 2023-07-02 | Outpatient (REF) | payer MEDICARE | LOC: M SFHCADAM 08:16 | PROVIDERS: ATTEND Physician Assistant Medical | DX: M1A.9XX1 Chronic gout, unspecified, with tophus (tophi) (principal) ==

== ENCOUNTER → 2023-11-18 | Outpatient (REF) | payer MEDICARE | LOC: M SFHCADAM 09:53 | PROVIDERS: ATTEND Physician Assistant Medical | DX: Z00.00 Encounter for general adult medical examination without abnormal findings (principal); M1A.3710 Chronic gout due to renal impairment, right ankle and foot, without tophus (tophi) ==

== ENCOUNTER → 2024-01-08 | Outpatient (CLI) | payer MEDICARE | LOC: M ADAMS 08:53 | PROVIDERS: ATTEND Physician Assistant Medical | DX: J44.1 Chronic obstructive pulmonary disease with (acute) exacerbation (principal) ==

== ENCOUNTER → 2024-04-07 | Outpatient (REF) | payer MEDICARE ==
[2024-04-07 13:15] LABS: BASO % 0.4 % (0.0-1.0); EOS # 0.1 10^3/uL (0.0-0.5); EOS % 1.9 % (0.0-3.0); HEMATOCRIT 43.2 % (42.0-52.0); LYMPH # 2.4 10^3/uL (1.5-5.0); LYMPH % 32.1 % (24.0-44.0); MEAN CORPUSCULAR HEMOGLOBIN 33.4 pg (27.0-33.0); MEAN CORPUSCULAR HGB CONC 32.4 g/dl (32.0-36.5); MEAN CORPUSCULAR VOLUME 103.1 fl (80.0-96.0); MONO % 13.1 % (2.0-8.0); NEUTROPHILS # 3.8 10^3/uL (1.5-8.5); NEUTROPHILS % 52.2 % (36.0-66.0); PLATELET COUNT, AUTOMATED 188 10^3/uL (150-450); RED BLOOD COUNT 4.19 10^6/uL (4.30-6.10); WHITE BLOOD COUNT 7.4 10^3/uL (4.0-10.0)
[2024-04-07 13:24] LABS: ALBUMIN 3.6 G/DL (3.2-5.2); ALKALINE PHOSPHATASE 97 U/L (46-116); ALT/SGPT 16 U/L (7.0-40); AST/SGOT 22 U/L (<34); BILIRUBIN,TOTAL 1.1 MG/DL (0.3-1.2); BLOOD UREA NITROGEN 18 MG/DL (9-23); CALCIUM LEVEL 9.1 MG/DL (8.3-10.6); CARBON DIOXIDE LEVEL 29 MMOL/L (20-31); CHLORIDE LEVEL 104 MMOL/L (98-107); CHOLESTEROL LEVEL 124 MG/DL (<200); CHOLESTEROL RISK RATIO 2.94 (<5); CREATININE FOR GFR 0.93 MG/DL (0.70-1.30); GLOMERULAR FILTRATION RATE > 60.0 (>35); GLUCOSE, FASTING 82 MG/DL (74-106); HDL CHOLESTEROL 42.1 MG/DL (>40); LDL CHOLESTEROL 59.3 MG/DL (<100); NON-HDL-C 81.9 MG/DL; POTASSIUM SERUM 3.6 MMOL/L (3.5-5.1); SODIUM LEVEL 140 MMOL/L (136-145); TOTAL PROTEIN 6.5 G/DL (5.7-8.2); TRIGLYCERIDES LEVEL 113 MG/DL (<150)
[2024-04-07 13:48] LABS: THYROID STIMULATING HORMONE 1.768 uIU/ML (0.55-4.78); TOTAL 25(OH) VITAMIN D 69.5 NG/ML (20.0-100.0); URIC ACID 4.2 MG/DL (3.7-9.2)
== END ==
LOC: M SFHCADAM 07:24
PROVIDERS: ATTEND Physician Assistant Medical
DX: I10 Essential (primary) hypertension (principal); E78.2 Mixed hyperlipidemia; K21.9 Gastro-esophageal reflux disease without esophagitis; M81.0 Age-related osteoporosis without current pathological fracture; M1A.9XX1 Chronic gout, unspecified, with tophus (tophi)

== ENCOUNTER → 2024-04-29 | Outpatient (REF) | payer MEDICARE ==
[2024-04-29 13:54] LABS: BLOOD UREA NITROGEN 20 MG/DL (9-23); CARBON DIOXIDE LEVEL 32 MMOL/L (20-31); CHLORIDE LEVEL 106 MMOL/L (98-107); CREATININE FOR GFR 0.95 MG/DL (0.70-1.30); GLOMERULAR FILTRATION RATE > 60.0 (>35); GLUCOSE, FASTING 103 MG/DL (74-106); POTASSIUM SERUM 4.2 MMOL/L (3.5-5.1); SODIUM LEVEL 144 MMOL/L (136-145)
== END ==
LOC: M SFHCADAM 10:06
PROVIDERS: ATTEND Physician Assistant Medical
DX: I10 Essential (primary) hypertension (principal)

== ENCOUNTER → 2024-06-10 | Outpatient (CLI) | payer MEDICARE | LOC: M RAD 14:09 | PROVIDERS: ATTEND Physician Assistant Medical | DX: M25.462 Effusion, left knee (principal) ==

== ENCOUNTER → 2024-06-18 | Outpatient (REF) | payer MEDICARE ==
[2024-06-18 18:10] LABS: BLOOD UREA NITROGEN 15 MG/DL (9-23); CALCIUM LEVEL 9.9 MG/DL (8.3-10.6); CARBON DIOXIDE LEVEL 31 MMOL/L (20-31); CHLORIDE LEVEL 102 MMOL/L (98-107); GLOMERULAR FILTRATION RATE > 60.0 (>35); GLUCOSE, FASTING 88 MG/DL (74-106); POTASSIUM SERUM 4.5 MMOL/L (3.5-5.1); SODIUM LEVEL 142 MMOL/L (136-145)
== END ==
LOC: M SFHCADAM 14:22
PROVIDERS: ATTEND Physician Assistant Medical
DX: I50.32 Chronic diastolic (congestive) heart failure (principal)